=== PATIENT | female | born 1980 | race Caucasian/White ===

== ENCOUNTER → 2018-05-07 11:37 | Outpatient (CLI) | payer OTHER, SELFPAY | PROVIDERS: Family Provider Preventive Medicine Occupational Medicine; PCP Preventive Medicine Occupational Medicine; Visit Provider Surgery | DX: L02.214 Cutaneous abscess of groin (principal) | CPT/HCPCS: 87070; 87075; 87077; 87186; 87205 ==

== ENCOUNTER → 2018-11-24 10:37 | Outpatient (CLI) | payer OTHER, SELFPAY ==
[2018-10-20 11:40] VITALS: BMI 32.8
[2018-11-24 12:31] LABS: Microalbumin,Random Urine 80.8 mg/L (NO RANGE EST.); Microalbumin:Creatinine Ratio 115.4 mg/g CRE (<30 mg/g CRE)
[2018-11-24 12:35] LABS: Hemoglobin A1c 12.3 % (4.2-6.3)
[2018-11-24 12:51] LABS: ALB/GLOB Ratio 0.9 RATIO (0.9-2.4); AST(SGOT) 13 U/L (15-37); Alanine Aminotransfer ALT/SGPT 27 U/L (13-56); Albumin, Serum 3.5 g/dL (3.2-5.0); Alkaline Phosphatase 93 U/L (45-117); Anion Gap 10 (5-15); BUN 11 mg/dL (7-18); BUN/Creat Ratio 13.9 RATIO (10-20); Chloride 102 mmol/L (98-107); Creatinine, Serum 0.79 mg/dL (0.55-1.02); EST Glomerular Filtration Rate 87 mL/min (>60); Est Glom Filt Rate - Afr Amer 105 mL/min (>60); Glucose 358 mg/dL (74-106); Potassium 4.4 mmol/L (3.5-5.1); Protein, Total 7.5 g/dL (6.4-8.2); Sodium Level 135 mmol/L (136-145); T4 Free Direct 1.49 ng/dL (0.76-1.46); Thyroid Stim Hormone (TSH) 1.43 uIU/mL (0.358-3.74)
--- OUTSIDE RECORDS SUMMARY | 2019-01-26 13:36 | XMS RPT_ITS ---
:1980 Author Organization OHIP Support Name Relationship Address Phone RACHEL AVILA Unavailable [address] + [place] [address] [facility] Unavailable [address] + [place] [address] RACHEL AVILA Unavailable [address] + [place] [address] [facility] Unavailable [address] + [place] [address] RACHEL AVILA Unavailable [address] + [place] [address] [facility] Unavailable [address] + [place] [address] RACHEL AVILA Unavailable [address] + [place] [address] [facility] Unavailable [address] + [place] [address] RACHEL AVILA Unavailable [address] + [place] [address] [facility] Unavailable [address] + [place] [address] RACHEL AVILA Unavailable [address] + [place] [address] [facility] Unavailable [address] + [place] [address] RACHEL AVILA Unavailable [address] + [place] [address] [facility] Unavailable [address] + [place] [address] RACHEL AVILA Unavailable [address] + [place] [address] [facility] Unavailable [address] + [place] [address] AVILA, RACHEL Unavailable [address] + [place] [address] [facility] Unavailable [address] + [place] [address] AVILA, RACHEL Unavailable [address] + [place] [address] [facility] Unavailable [address] + [place] [address] AVILA, RACHEL Unavailable [address] + [place] [address] [facility] Unavailable [address] + [place] [address] MARGARITA, RACHEL Unavailable [address] + [place] [address] [facility] Unavailable [address] + [place] [address] Care Team Providers Name Role Phone Louise Thomas IRRIGATOR HEAD-C Attending Unavailable Louise Thomas IRRIGATOR HEAD-Katharina Referring Unavailable Walter Becerra Primary Care Unavailable Robotham, Afua Attending Unavailable Sofie Hemant Referring Unavailable Sofie, Hemant Primary Care Unavailable Louise ThomasC Attending Unavailable Sofie, Hemant Referring Unavailable Louise Thomas IRRIGATOR HEAD-C Attending Unavailable Sofie, Hemant Referring Unavailable Brown, Walter Attending Unavailable Sofie, Hemant Referring Unavailable Louise Thomas IRRIGATOR HEAD-C Attending Unavailable Sofie, Hemant Referring Unavailable Louise Thomas IRRIGATOR HEAD-C Attending Unavailable Sofie, Hemant Referring Unavailable Sofie, Hemant Primary Care Unavailable Robotham, Afua Attending Unavailable Robotham, Afua Referring Unavailable Sofie, Hemant Primary Care Unavailable Chen Carias Attending Unavailable Sofie, Hemant Referring Unavailable Sofie, Hemant Primary Care Unavailable Robotham, Afua Attending Unavailable Robotham, Afua Referring Unavailable Sofie, Hemant Primary Care Unavailable Ann Rivera PA-C Attending Unavailable Sofie Hemant Referring Unavailable Sofie, Hemant Primary Care Unavailable Ann Rivera PA-C Attending Unavailable Sofie, Hemant Referring Unavailable Sofie, Hemant Primary Care Unavailable PROBLEMS PROBLEMS DATE TYPE CONDITION / CODE ATTENDING STATUS SOURCE 10/20/2018 Unknown E11.9 - Type 2 Louise Thomas Active [facility] diabetes mellitus IRRIGATOR HEAD-C Community without Hospital complications / Repository E11.9(ICD-10) 10/20/2018 Unknown E11.65 - Type 2 Louise Thomas Active [facility] diabetes mellitus IRRIGATOR HEAD-C Community with hyperglycemia Hospital / E11.65(ICD-10) Repository 09/29/2018 Unknown M79.7 - Brown, Walter Active [facility] Fibromyalgia / Community M79.7(ICD-10) Hospital Repository 09/29/2018 Unknown E34.9 - Endocrine Brown, Walter Active [facility] disorder, Community unspecified / Hospital E34.9(ICD-10) Repository 05/15/2018 Unknown L02.91 - Cutaneous Robotham, Active [facility] abscess, Afua Community unspecified / Hospital L02.91(ICD-10) Repository 05/07/2018 Unknown L02.214 - Cutaneous Rob[place]am, Active [facility] abscess of groin / [facility] Community L02.214(ICD-10) Hospital Repository 05/07/2018 Unknown N76.4 - Abscess of [place], Active [facility] vulva / [facility] Community N76.4(ICD-10) Hospital Repository 12/10/2017 Unknown L05.01 - Pilonidal Rivera PA-C, Active [facility] cyst with abscess / [facility] Community L05.01(ICD-10) Hospital Repository PROCEDURES PROCEDURES No Procedure Records FoundRESULTS RESULTS MICROALB:CREAT Collected: 11/24/2018 Status: F Source: [facility] RATIO,RANDOM UR 10:42 [facility] REPOSITORY TYPE CODE TESTS RESULT OUT OF RANGE REFERENCE UNITS LAB L501.1200 NO RANGE EST. mg/dL Normal UR CREAT 70.00 LAB L502.0500 NO RANGE EST. mg/L Normal 80.8 MICROALBUMIN ,UR LAB L502.0600 <30 mg/g CRE mg/g CRE High 115.4 MALB:CREAT Performed By: #### L502.0250 #### [facility] [address] [place], [address] HEMOGLOBIN A1C Collected: 11/24/2018 Status: F Source: [facility] [facility] 10:42 [facility] REPOSITORY TYPE CODE TESTS RESULT OUT OF RANGE REFERENCE UNITS LAB L501.9985 4.2-6.3 % High HGB A1C 12.3 Performed By: #### L501.9985 #### [facility] [address] [place], [address] COMPREHENSIVE METABOLIC Collected: 11/24/2018 Status: F Source: [facility] 10:42 AM [facility] REPOSITORY TYPE CODE TESTS RESULT OUT OF RANGE REFERENCE UNITS LAB L501.0100 74-106 mg/dL High GLU 358 Result Comment: Glucose result greater than or equal to 200 mg/dL suggests DIABETES MELLITUS per A.D.A. criteria. Please note revised GLUCOSE reference range effective 2017. LAB L501.1000 7-18 mg/dL Normal BUN 11 LAB L501.1100 0.55-1.02 mg/dL Normal CREAT,SERUM 0.79 Result Comment: The validity of the calculated GFR AND GFRAA in patients over 70 years has not been determined. Clinical correlation is essential. LAB L501.1110 >60 mL/min Normal EST GFR 87 Result Comment: Non- GFR Calc LAB L501.1115 >60 mL/min Normal EST GFR - AA 105 Result Comment: GFR Calc LAB L501.1300 10-20 RATIO Normal BUN/CRE 13.9 LAB L501.1500 6.4-8.2 g/dL T Normal PROT 7.5 LAB L501.1800 3.2-5.0 g/dL Normal ALB 3.5 LAB L501.1950 2.2-4.2 g/dL Normal GLOB 4.0 LAB L501.2000 0.9-2.4 RATIO Normal A/G 0.9 LAB L501.2200 8.5-10.1 mg/dL CA Normal 9.0 LAB L501.4100 15-37 U/L Low AST 13 LAB L501.4305 45-117 U/L Normal ALK P 93 LAB L501.4405 13-56 U/L Normal ALT 27 LAB L501.4600 0.20-1.00 mg/dL T Normal BILI 0.40 LAB L501.5300 136-145 mmol/L Low NA 135 LAB L501.5600 3.5-5.1 mmol/L K Normal 4.4 LAB L501.5900 98-107 mmol/L CL Normal 102 LAB L501.6100 21.0-32.0 mmol/L Normal CO2 23.0 LAB L501.6200 5-15 Normal GAP 10 Performed By: #### L500.4050, L501.9520, L506.0400 #### [facility] [address] [place], [place], [address] THYROID STIM HORMONE Collected: 11/24/2018 Status: F Source: [facility] ([facility]) 10:42 AM [facility] REPOSITORY TYPE CODE TESTS RESULT OUT OF RANGE REFERENCE UNITS LAB L501.9520 0.358-3.74 uIU/mL Normal TSH 1.43 Performed By: #### L500.4050, L501.9520, L506.0400 #### [facility] [address] [place], [place], [address] T4 FREE DIRECT Collected: 11/24/2018 Status: F Source: [place] [facility] 10:42 AM [facility] REPOSITORY TYPE CODE TESTS RESULT OUT OF REFERENCE UNITS RANGE LAB L506.0400 0.76-1.46 ng/dL High T4 FREE 1.49 DIRECT Performed By: #### L500.4050, L501.9520, L506.0400 #### [facility] [address] [place], [place], [address] ENDOCRINOLOGY VISIT Observed: 10/21/2018 Status: F Source: [facility] REPORT 9:08 AM [facility] REPOSITORY [facility] [address] [place] [address]. [address] [place], [place] [address] OFFICE VISIT Date of Service: 10/20/18 MR#: [id number] Acct: [id number] Name: HALLIE AVILA Rep #: [id number] : 1980 Provider: Louise Thomas NP Age/Sex: 38/F Location: [facility] [place] Status: Signed HPI History of present illness Hallie Avila is a 38 year old femal who presents for follow up of diabetes type 2. Diagnosed at age 25. Accompanied by her mother. Currently on tresiba 60 units daily. Pt denies difficulty with injections or self monitoring of BG. Denies any signs of infection or irritation at site of injections. Reports taking insulin as directed Also takes actos 30 mg daily. 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 Also has history of panic attacks and severe anxiety. Takes her insulin when she gets to work so she is around people who are awake in case she has a low BG. . She believes her last A1c was in the 9 range. She is extremely fearful of low BG. Brings BG well documented. At time of visit: -Pt denies symptoms of hypertensive emergency (CP,SOB,YA, or blurred vision) and hypotension(dizziness or lightheadedness) -Pt denies symptoms of hypoglycemia ( sweaty, confusion, anxiety, tremor, hunger, palpitations) and hyperglycemia ( polydipsia, polyuria) -Pt denies potential medication adverse effect. Hypoglycemia Aware of hypoglycemia: When awake Able to self treat low BG: Yes Frequent low Blood sugar: No Has supply of glucagon: Yes Works 11-7 shift. Sleeps until around 12n each day but also takes a nap fro about 2 hours before going to work. Eats a meal at 4pm and a second meal at 2am. Has a snack around midnight. Denies excessive thirst, increased frequency of urination, chest pain or dyspnea. Follows a regular diet, Is compliant with medication and is tolerating without side effects. Diet 2 meals snacks No carb counting SMBG inconsistent Checks usually around 12n when checks Exam Const General: comfortable, well groomed Nutritional Appearance: well nourished Orientation: oriented x3 HENMT Head: normal to inspection, atraumatic Ears: hearing grossly normal bilaterally Nose: external nose normal Face and sinus: normal facial exam Mouth: oral mucosae normal, moist mucous membranes Teeth and gingiva: dentition normal Eyes General: appearance normal, both eyes and all related structures Eyelids: eyelids normal Conjunctivae: conjunctivae normal Sclera: sclerae normal Pupils: PERRL Resp Effort AND Inspection: normal respiratory effort, able to speak in complete sentences, symmetric chest movement Cardio Rate: regular rate Rhythm: regular rhythm GI Inspection: normal to inspection Palpation: soft Skin General: no rashes or lesions noted Extrem General: normal to inspection, normal capillary refill, no edema Psych Mood: congruent mood Affect: normal affect Speech and Movement: speech and movement normal Attitude: cooperative Thought Process: normal Thought Content: normal Judgment: judgment good Type: type 2, insulin-requiring Glucose control symptoms: Reports high fasting glucose and high post-meal glucose Weight and fatigue symptoms: Denies snoring Cardiopulmonary symptoms: Denies chest pain at rest, dyspnea on exertion, lightheadedness or myalgias GI symptoms: Reports diarrhea; denies constipation, nausea/dyspepsia or vomiting Other symptoms: Denies blurry vision or change in vision Pertinent visit history: Denies recent visit to ER, recent hospital admission or recent 911 calls Self monitoring: Yes Percentage of fasting blood glucose within goal: <25% of the time Dietary compliance: Diabetes: other Diabetes education in past year: Yes Glucose testing: demonstrates correct use of meter, understands testing schedule Sick day education - understands ketone testing: Yes Physical activity: regular Intake Vital Signs10/20/18 Body Mass Index (BMI) 32.8 10/20/18 Height 5 ft 5 in Intake Visit Reasons: Diabetes 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 Accompanied by: Family / Other Allergies clindamycin Allergy (Verified 10/20/18 11:41) Rash morphine Adverse Reaction (Verified 10/20/18 11:41) Upset Stomach Medications Lorazepam [Ativan] 0.5 mg PO DAILY PRN PRN 01/13/17 [History Confirmed 10/20/18] MedroxyPROGESTERone [Depo-Provera] 150 mg IM .[id number] 01/13/17 [History Confirmed 10/20/18] insulin degludec (U-100) 100 unit/mL (3 mL) subcutaneous pen See Rx Instructions SC QHS 12/10/17 [History Confirmed 10/20/18] rosuvastatin 40 mg tablet 40 mg PO QDAY 05/15/18 [History Confirmed 10/20/18] levothyroxine 75 mcg tablet See Rx Instructions PO QHS 07/21/18 [History Confirmed 10/20/18] glipizide 5 mg tablet 5 mg PO DAILY #30 tab 07/29/18 [Rx Confirmed 10/20/18] duloxetine 30 mg capsule,delayed release 30 mg PO DAILY #30 cap 09/29/18 [Rx Confirmed 10/20/18] lisinopril 30 mg tablet 30 mg PO DAILY 09/29/18 [History Confirmed 10/20/18] pantoprazole 40 mg tablet,delayed release 40 mg PO DAILY 09/29/18 [History Confirmed 10/20/18] pioglitazone 30 mg tablet 30 mg PO QHS #90 tab 10/20/18 [Rx Confirmed 10/20/18] Nurse's Note: blood sugars : low : 231 high : 400 with one BG higher after forgetting medications [facility] History Hypothyroidism (Acute) HTN (hypertension) (Chronic) Tobacco use (Chronic) HLD (hyperlipidemia) (Chronic) Obesity (BMI 30.0-34.9) (Chronic) Diabetes mellitus, type II (Chronic) Anxiety and depression (Acute) GERD (gastroesophageal reflux disease) (Acute) HTN (hypertension), benign (Acute) Labial cyst (Acute) Seasonal allergies (Acute) Surgical History Abdominal wall abscess (Acute) History of bilateral carpal tunnel release (Acute) Family History Mother Diabetes Hypertension CAD (coronary artery disease) Thyroid disorder High cholesterol Father Diabetes Hypertension Grandmother Diabetes Hypertension Social History Smoking Status: Current every day smoker alcohol intake: never substance use type: does not use what type of physical activity do you participate in: none Female Reproductive History Menstrual control method: progesterone injection ROS Const Constitutional: Positive for fatigue and night sweats; no anorexia, body ache, chills, fever(s), frequent falls, decreased energy, malaise, weakness, weight change, sleep problems, abnormal sleep pattern, change in appetite, other, headache(s), snoring or excessive sweating Eyes Eyes: Positive for other (eye exam 10/20); no blurry vision, change in vision, double vision, discharge, dry eyes, bulging eyes, floaters, visual disturbances, eye pain, light sensitivity, spots in vision or tunnel vision ENT ENT: No abnormal hearing, ear pain, ear discharge, ear pressure, hearing loss, tinnitus, dizziness/vertigo, balance problems, nosebleed/epistaxis, nasal congestion, nasal obstruction, nose pain, sinus pressure, sinus pain, nasal discharge, post nasal drip, headache(s), facial pain, dental pain, dry mouth, bad breath, hoarseness, lip swelling, mouth lesions, mouth pain, sore throat, tongue swelling, throat swelling, other, difficulty swallowing or neck pain Resp Respiratory: Positive for cough; no change in phlegm color, chest congestion, excessive phlegm production, hemoptysis, pain on inspiration, shortness of breath, pain with cough, snoring, stridor, wheezing or other Cardio Cardiology: No chest pain at rest, chest pain with exertion, leg pain with exertion, excessive sweating, shortness of breath, dyspnea on exertion, generalized swelling, irregular heart rhythm, lightheadedness, orthopnea, radiating jaw, neck or arm pain, fast heart rate, slow heart rate, palpitations or other Gastro GI: Positive for belching, bloating, diarrhea and heartburn; no abdominal pain, change in bowel habits, change in stool character, coffee ground emesis, constipation, cramping, difficulty swallowing, feeling full early, excessive flatus, incontinent of stools, Vomiting blood/hematemesis, blood in stool, loose stools, Black,tarry stools, nausea/dyspepsia, pain with swallowing, vomiting or other Genitourinary-Female: No difficulty urinating, burning urination, painful urination, urinary incontinence, urinary frequency, urinary urgency, urinary hesitancy, urinary retention, blood in urine, Frequent nighttime urination/ nocturia, post void dribbling, suprapubic fullness, side pain, sexual problems, genital lesions, genital itching, hot flashes, abnormal periods, abnormal vaginal bleeding, absent period, painful periods, light periods, heavy periods, difficulty getting , painful intercourse, pelvic pain, vaginal dryness, vaginal odor, Vaginal Itching or other Musc Musculoskeletal: No abnormal walking, joint pain, back pain, deformity, joint swelling, limited range of motion, loss of height, muscle cramps, muscle weakness, decreased muscle mass, body aches, neck pain, numbness, radiating pain into limb, stiffness, tingling or other Skin Skin: No acne, hair loss, change in hair, nail changes, boil, change in skin color, dry skin, redness, excessive hair growth, yellowing of the skin, lesions, itching, rash, skin pain, skin ulcer, sores, skin swelling, wounds or other Breast Breast: No other Neuro Neurology: No frequent falls, weakness, visual disturbances, abnormal hearing, headache(s), abnormal walking, numbness or tingling Psych Psychiatric: No abnormal sleep pattern, No change in appetite Endo Endocrine: Positive for fatigue; no other or excessive sweating Aller/Imm Allergy/Immunologic: No lip swelling, tongue swelling, throat swelling, wheezing or itchy eyes Assessment AND Plan 1. Type 2 diabetes mellitus with complication, with long-term current use of insulin E11.8 Plan Has checked BG 3 times daily for this review. BG noted to be in best control in am afer work shift. She then sleeps until 2pm. She then is drinking regular pop. Occ eating chips. Has a meal at 4pm and BG readings noted to be significantly elevated. At 12m BG have improved by around 100 BG points. Reports taking medication as directed. BG now 200-400 range on average. Patient instructed to avoid regular pop and also to check BG when she awakens instead of after she is up for awhile to determine what BG is. Patient Instructions Avoid regular pop. Check BG in pairs at meals. Lab work ordered. Control portions Food selections should be healthy Choose more low carb vegetables Avoid snacks and desserts. Drink water Exercise daily Eat more fresh foods, not canned or processed Eat more slowly Plan Detail Other Orders Orders: Other Medications Refilled: Additional Comments 1. Please schedule follow up in 2 months. 2. Lab work one week before appointment. 3. Discussed importance of regular exercise and recommend starting or continuing a regular exercise program for good health. 4. The patient was encouraged to lose weight for good health 5. The importance of monitoring blood sugar regularly was reviewed. 6. The importance of monitoring the HBA1c level regularly was reviewed. 7. The importance of prper foot care and regularly checking feet to prevent sores and loss of limbs was reviewed. 8. The importance of keeping BP at or below 130/80 to prevent stroke, heart attacks, kidney failure, blindness was reviewed. Spent approximately 30 minutes with patient with over 50% of time spent in discussion and counseling regarding medication adjustment, symptoms and treatment of hypoglycemia, diet adherence, and checking BG before driving. 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 [address] [place] [address] OFFICE VISIT Date of Service: 09/29/18 MR#: [id number] Acct: [id number] Name: HALLIE AVILA Rep #: [id number] : 1980 Provider: Walter Becerra DO Age/Sex: 38/F Location: [facility] Status: Signed Intake Vital Signs09/29/18 Body Mass Index (BMI) 32.8 09/29/18 Height 5 ft 5 in Intake Visit Reasons: EST CARE Chief Complaint: establish care Accompanied by: Mother Is patient in pain?: Yes (knee pain) Allergies clindamycin Allergy (Verified 08/26/18 14:00) Rash morphine Adverse Reaction (Verified 08/26/18 14:00) Upset Stomach Medications Lorazepam [Ativan] 0.5 mg PO DAILY PRN PRN 01/13/17 [History Confirmed 08/26/18] MedroxyPROGESTERone [Depo-Provera] 150 mg IM .[id number] 01/13/17 [History Confirmed 08/26/18] Pioglitazone [Actos] 30 mg PO QHS 01/13/17 [History Confirmed 08/26/18] insulin degludec (U-100) 100 unit/mL (3 mL) subcutaneous pen See Rx Instructions SC QHS 12/10/17 [History Confirmed 08/26/18] rosuvastatin 40 mg tablet 40 mg PO QDAY 05/15/18 [History Confirmed 08/26/18] levothyroxine 75 mcg tablet See Rx Instructions PO QHS 07/21/18 [History Confirmed 08/26/18] glipizide 5 mg tablet 5 mg PO DAILY #30 tab 07/29/18 [Rx Confirmed 08/26/18] duloxetine 30 mg capsule,delayed release 30 mg PO DAILY #30 cap 09/29/18 [Rx Confirmed 09/29/18] lisinopril 30 mg tablet 30 mg PO DAILY 09/29/18 [History Confirmed 09/29/18] pantoprazole 40 mg tablet,delayed release 40 mg PO DAILY 09/29/18 [History Confirmed 09/29/18] Is last menstrual period known: Yes Post menopausal: No Patient : No PFSH Medical History Hypothyroidism (Acute) HTN (hypertension) (Chronic) Tobacco use (Chronic) HLD (hyperlipidemia) (Chronic) Obesity (BMI 30.0-34.9) (Chronic) Diabetes mellitus, type II (Chronic) Anxiety and depression (Acute) GERD (gastroesophageal reflux disease) (Acute) HTN (hypertension), benign (Acute) Labial cyst (Acute) Seasonal allergies (Acute) Surgical History Abdominal wall abscess (Acute) History of bilateral carpal tunnel release (Acute) Family History Mother Diabetes Hypertension CAD (coronary artery disease) Thyroid disorder High cholesterol Father Diabetes Hypertension Grandmother Diabetes Hypertension Social History Smoking Status: Current every day smoker alcohol intake: never substance use type: does not use what type of physical activity do you participate in: none Female Reproductive History Menstrual control method: progesterone injection HPI HPI Chief Complaint: establish care Details: HALLIE AVILA, is a 38 F who presents to the office today for establishing care in the new office. She has 4 major problems the first is she is a diabetic is poorly controlled the second is she has what I believe is fibromyalgia generalized achiness and pain in the absence of any restriction of motion or objective physical findings. Third is recurring MRSA infections. In fourth is menstrual difficulties using Depo- Provera for controlling periods which I feel may be exacerbating the acne problems. 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.); no weight change, body ache, chills, fever(s), change in appetite, snoring, weakness, frequent falls, headache(s) or excessive sweating Eyes Eyes: No change in vision, eye pain, light sensitivity or blurry vision ENT ENT: Positive for nasal discharge; no headache(s), abnormal hearing, ear pain, tinnitus, nasal congestion or sore throat Resp Respiratory: Positive for cough; no snoring, shortness of breath or wheezing Cardio Cardiology: No excessive sweating, chest pain at rest, chest pain with exertion, shortness of breath, dyspnea on exertion, palpitations, orthopnea or lightheadedness Gastro GI: Positive for heartburn; no abdominal pain, change in bowel habits, constipation, diarrhea, vomiting, nausea/dyspepsia or cramping Genitourinary-Female: No burning urination, painful urination, urinary incontinence, urinary frequency, abnormal vaginal bleeding, pelvic pain or other Musc Musculoskeletal: Positive for joint pain (knees), numbness, tingling (legs and toes) and muscle weakness; no abnormal walking, back pain or limited range of motion Skin Skin: No redness, dry skin, itching, lesions, wounds or rash Neuro Neurology: Positive for numbness and tingling (legs and toes); no weakness, frequent falls, headache(s), abnormal hearing, abnormal walking, abnormal speech, dizziness or memory loss Psych Psychiatric: No change in appetite, No memory loss, No anxiety, Positive for depression, No Thoughts of harming yourself/Others, Positive for other (lack of motivation ) Endo Endocrine: Positive for fatigue; no excessive sweating, cold intolerance, increased thirst/drinking, heat intolerance, flushing or increased hunger Aller/Imm Allergy/Immunologic: No wheezing, itchy eyes, hives or seasonal allergy symptoms Luis/Lymp Hematologic/Lymphatic: No easy bleeding, easy bruising or enlarged lymph nodes Exam Const General: cooperative Nutritional Appearance: overweight Orientation: oriented x3 Limitations: other limitations (Intellectually she is low functioning .) [facility] Head: normal to inspection Ears: hearing grossly normal bilaterally Nose: external nose normal Face and sinus: normal facial exam Mouth: oral mucosae normal Teeth and gingiva: dentition normal Throat: posterior oropharynx normal Eyes General: appearance normal, both eyes and all related structures Neck Neck: normal visual inspection Neck mass: No Thyroid: thyroid normal Lymphatic: no lymphadenopathy noted Resp Effort AND Inspection: normal respiratory effort Auscultation: Bilateral: Clear to Auscultation Cardio Rate: regular rate Rhythm: regular rhythm GI Auscultation: normal bowel sounds Musc Musculoskeletal: Yes muscle weakness Skin General: no rashes or lesions noted Lesions: no lesions Rashes: rashes noted (acne lesions noted) Extrem General: normal to inspection Psych Appearance: grossly normal Affect: normal affect Speech and Movement: speech and movement normal Attitude: cooperative Assessment AND Plan Problems 1. Essential hypertension I10 2. Hypothyroidism E03.9 3. Tobacco use Z72.0 Cigarette tobacco, 1 ppd. 4. Hyperlipidemia, unspecified hyperlipidemia type E78.5 5. Obesity (BMI 30.0-34.9) E66.9 6. Type 2 diabetes mellitus with complication, with long-term current use of insulin E11.8 Dx : age 25 Last exacerbation : DKA : never Hypoglycemic episode : never ER visit : 2008 - was to er x 3 for elevated bg after steroids 7. Fibromyalgia M79.7 Plan This patient was seen by me for the first time with a multiplicity of problems. She has diabetes and it is being handled through endocrinology. She has recurrent MRSA infections and has seen surgery for surgical excisions of the worst of these. She used to see a family doctor who put her on Depo-Provera to control her menstrual cycles saying that it would help her acne. But I believe the Depo-Provera probably makes the acne worse as progesterones normally do not help acne so I referred her to an OB GEN doctor to reassess in a otto female what she should take not only for contraception if she needs it but also. Control. She has had no hormonal workup in the past. And she mainly complains of severe joint pain in the back and the knees in the arms but it is much more that of fibromyalgia as objective physical examination is completely within normal limits. I changed her very low-dose paroxetine to a normal dose of duloxetine in hopes that this would help her fibromyalgia I made the referral and will follow her up in several months. Orders Referrals: Medications New: Discontinued: paroxetine Discontinued Reason: Discontinued by PCP/other phy10 mg PO QHS DEPRESSION sicians Plan Detail Follow Up 3 Months Coding Level of Care Code Off vis,new,level 3 Diagnoses Essential hypertension I10 Hypertension type: essential hypertension Hypothyroidism E03.9 Tobacco use Z72.0 Hyperlipidemia, unspecified hyperlipidemia type E78.5 Hyperlipidemia type: unspecified Obesity (BMI 30.0-34.9) E66.9 Type 2 diabetes mellitus with complication, with long-term current use of insulin E11.8 Diabetes mellitus complication status: with unspecified complications 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 [place] [id number] OFFICE VISIT Date of Service: 08/04/18 MR#: [id number] Acct: [id number] Patient: HALLIE AVILA Rep #: [id number] : 1980 Provider: Louise Thomas NP Age/Sex: 38/F [place] [facility] [place]: Signed Intake Vital Signs08/04/18 Height 5 ft 5 in Intake Visit Reasons: feliberto sensor placement Allergies clindamycin Allergy (Verified 08/26/18 14:00) Rash morphine Adverse Reaction (Verified 08/26/18 14:00) Upset Stomach Medications Lorazepam [Ativan] 0.5 mg PO DAILY PRN PRN 01/13/17 [History Confirmed 08/26/18] MedroxyPROGESTERone [Depo-Provera] 150 mg IM .[id number] 01/13/17 [History Confirmed 08/26/18] Pantoprazole Sodium [Protonix] 20 mg PO QHS 01/13/17 [History Confirmed 08/26/18] Paroxetine [Paxil] 10 mg PO QHS 01/13/17 [History Confirmed 08/26/18] Pioglitazone [Actos] 30 mg PO QHS 01/13/17 [History Confirmed 08/26/18] Lisinopril [Zestril] 30 mg PO DAILY 08/16/17 [History Confirmed 08/26/18] insulin degludec (U-100) 100 unit/mL (3 mL) subcutaneous pen See Rx Instructions SC QHS 12/10/17 [History Confirmed 08/26/18] rosuvastatin 40 mg tablet 40 mg PO QDAY 05/15/18 [History Confirmed 08/26/18] levothyroxine 75 mcg tablet See Rx Instructions PO QHS 07/21/18 [History Confirmed 08/26/18] glipizide 5 mg tablet 5 mg PO DAILY #30 tab 07/29/18 [Rx Confirmed 08/26/18] Assessment AND Plan Orders Orders: Nursing Note Feliberto pro senser placed to back of pts R arm. pt tolerated well with no c/o. will wear senser for 14 days and return to clinic for results 09/19/181950 <Electronically signed by Louise MOORE> Date Louise MOORE Cosigner Signature: Date (if applicable) CC: ENDOCRINOLOGY VISIT Observed: 08/30/2018 Status: F Source: LUIS ENRIQUE REPORT 7:00 PM [facility] [address] [place] [address] [address] [place] [address] OFFICE VISIT Date of Service: 08/26/18 MR#: [id number] Acct: [id number] Name: HALLIE AVILA Rep #: [id number] : 1980 Provider: Louise Thomas NP Age/Sex: 38/F Location: [facility] [place] Status: Signed HPI History of present illness History of present illness Hallie Avila is a 38 year old femal who presents for follow up of diabetes type 2. Diagnosed at age 25. Accompanied by her mother. Currently on tresiba 60 units daily. Pt denies difficulty with injections or self monitoring of BG. Denies any signs of infection or irritation at site of injections. Reports taking insulin as directed Also takes actos 30 mg daily. 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 Also has history of panic attacks and severe anxiety. Takes her insulin when she gets to work so she is around people who are awake in case she has a low BG. . She believes her last A1c was in the 9 range. She is extremely fearful of low BG. Is here today for CGM interpretation At time of visit: -Pt denies symptoms of hypertensive emergency (CP,SOB,AY, or blurred vision) and hypotension(dizziness or lightheadedness) -Pt denies symptoms of hypoglycemia ( sweaty, confusion, anxiety, tremor, hunger, palpitations) and hyperglycemia ( polydipsia, polyuria) -Pt denies potential medication adverse effect. Hypoglycemia Aware of hypoglycemia: When awake Able to self treat low BG: Yes Frequent low Blood sugar: No Has supply of glucagon: Yes Works 11-7 shift. Sleeps until around 12n each day but also takes a nap fro about 2 hours before going to work. Eats a meal at 4pm and a second meal at 2am. Has a snack around midnight. Denies excessive thirst, increased frequency of urination, chest pain or dyspnea. Follows a regular diet, Is compliant with medication and is tolerating without side effects. Diet 2 meals snacks No carb counting SMBG inconsistent Checks usually around 12n when checks Exam Const General: comfortable, well groomed Nutritional Appearance: well nourished Orientation: oriented x3 HENMT Head: normal to inspection, atraumatic Ears: hearing grossly normal bilaterally Nose: external nose normal Face and sinus: normal facial exam Mouth: oral mucosae normal, moist mucous membranes Teeth and gingiva: dentition normal Eyes General: appearance normal, both eyes and all related structures Eyelids: eyelids normal Conjunctivae: conjunctivae normal Sclera: sclerae normal Pupils: PERRL Resp Effort AND Inspection: normal respiratory effort, able to speak in complete sentences, symmetric chest movement Cardio Rate: regular rate Rhythm: regular rhythm GI Inspection: normal to inspection Palpation: soft Skin General: no rashes or lesions noted Extrem General: normal to inspection, normal capillary refill, no edema Psych Mood: congruent mood Affect: normal affect Speech and Movement: speech and movement normal Attitude: cooperative Thought Process: normal Thought Content: normal Judgment: judgment good Type: type 2, insulin-requiring Glucose control symptoms: Reports high post-meal glucose Weight and fatigue symptoms: Denies snoring Cardiopulmonary symptoms: Denies chest pain at rest, dyspnea on exertion, lightheadedness or myalgias GI symptoms: Reports nausea/dyspepsia; denies constipation, diarrhea or vomiting Other symptoms: Denies blurry vision or change in vision Pertinent visit history: Denies recent visit to ER, recent DKA or recent hospital admission Intake Vital Signs08/26/18 Height 5 ft 5 in 08/26/18 Weight: 197 lb 8 oz 08/26/18 Body Mass Index (BMI) 32.8 08/26/18 Blood Pressure 121/84 H 08/26/18 Blood Pressure Location Lt popliteal 08/26/18 Blood Pressure Position Sitting Intake Visit Reasons: CGM reading Dub Room Engineer Required: No Accompanied by: Family / Other Allergies clindamycin Allergy (Verified 08/26/18 14:00) Rash morphine Adverse Reaction (Verified 08/26/18 14:00) Upset Stomach Medications Lorazepam [Ativan] 0.5 mg PO DAILY PRN PRN 01/13/17 [History Confirmed 08/26/18] MedroxyPROGESTERone [Depo-Provera] 150 mg IM .[id number] 01/13/17 [History Confirmed 08/26/18] Pantoprazole Sodium [Protonix] 20 mg PO QHS 01/13/17 [History Confirmed 08/26/18] Paroxetine [Paxil] 10 mg PO QHS 01/13/17 [History Confirmed 08/26/18] Pioglitazone [Actos] 30 mg PO QHS 01/13/17 [History Confirmed 08/26/18] Lisinopril [Zestril] 30 mg PO DAILY 08/16/17 [History Confirmed 08/26/18] insulin degludec (U-100) 100 unit/mL (3 mL) subcutaneous pen See Rx Instructions SC QHS 12/10/17 [History Confirmed 08/26/18] rosuvastatin 40 mg tablet 40 mg PO QDAY 05/15/18 [History Confirmed 08/26/18] levothyroxine 75 mcg tablet See Rx Instructions PO QHS 07/21/18 [History Confirmed 08/26/18] glipizide 5 mg tablet 5 mg PO DAILY #30 tab 07/29/18 [Rx Confirmed 08/26/18] Nurse's Note: blood sugars : low : 200+ high : 500+ PFSH Medical History Hypothyroidism (Acute) HTN (hypertension) (Chronic) Tobacco use (Chronic) HLD (hyperlipidemia) (Chronic) Obesity (BMI 30.0-34.9) (Chronic) Diabetes mellitus, type II (Chronic) Anxiety and depression (Acute) GERD (gastroesophageal reflux disease) (Acute) HTN (hypertension), benign (Acute) Labial cyst (Acute) Seasonal allergies (Acute) Surgical History Abdominal wall abscess (Acute) History of bilateral carpal tunnel release (Acute) Family History Mother Diabetes Hypertension CAD (coronary artery disease) Thyroid disorder High cholesterol Father Diabetes Hypertension Grandmother Diabetes Hypertension Social History Smoking Status: Current every day smoker alcohol intake: current alcohol intake frequency: holidays/special occasions only ROS Const Constitutional: Positive for fatigue and night sweats; no anorexia, body ache, chills, fever(s), frequent falls, decreased energy, malaise, weakness, weight change, sleep problems, abnormal sleep pattern, change in appetite, other, headache(s), snoring or excessive sweating Eyes Eyes: No blurry vision, change in vision, double vision, discharge, dry eyes, bulging eyes, floaters, visual disturbances, eye pain, light sensitivity, spots in vision, tunnel vision or other ENT ENT: No abnormal hearing, ear pain, ear discharge, ear pressure, hearing loss, tinnitus, dizziness/vertigo, balance problems, nosebleed/epistaxis, nasal congestion, nasal obstruction, nose pain, sinus pressure, sinus pain, nasal discharge, post nasal drip, headache(s), facial pain, dental pain, dry mouth, bad breath, hoarseness, lip swelling, mouth lesions, mouth pain, sore throat, tongue swelling, throat swelling, other, difficulty swallowing or neck pain Resp Respiratory: Positive for cough; no change in phlegm color, chest congestion, excessive phlegm production, hemoptysis, pain on inspiration, shortness of breath, pain with cough, snoring, stridor, wheezing or other Cardio Cardiology: No chest pain at rest, chest pain with exertion, leg pain with exertion, excessive sweating, shortness of breath, dyspnea on exertion, generalized swelling, irregular heart rhythm, lightheadedness, orthopnea, radiating jaw, neck or arm pain, fast heart rate, slow heart rate, palpitations or other Gastro GI: Positive for heartburn and nausea/dyspepsia; no abdominal pain, belching, bloating, change in bowel habits, change in stool character, coffee ground emesis, constipation, cramping, diarrhea, difficulty swallowing, feeling full early, excessive flatus, incontinent of stools, Vomiting blood/hematemesis, blood in stool, loose stools, Black,tarry stools, pain with swallowing, vomiting or other Genitourinary-Female: No difficulty urinating, burning urination, painful urination, urinary incontinence, urinary frequency, urinary urgency, urinary hesitancy, urinary retention, blood in urine, Frequent nighttime urination/ nocturia, post void dribbling, suprapubic fullness, side pain, sexual problems, genital lesions, genital itching, hot flashes, abnormal periods, abnormal vaginal bleeding, absent period, painful periods, light periods, heavy periods, difficulty getting , painful intercourse, pelvic pain, vaginal dryness, vaginal odor, Vaginal Itching or other Musc Musculoskeletal: Positive for back pain; no abnormal walking, joint pain, deformity, joint swelling, limited range of motion, loss of height, muscle cramps, muscle weakness, decreased muscle mass, body aches, neck pain, numbness, radiating pain into limb, stiffness, tingling or other Skin Skin: No acne, hair loss, change in hair, nail changes, boil, change in skin color, dry skin, redness, excessive hair growth, yellowing of the skin, lesions, itching, rash, skin pain, skin ulcer, sores, skin swelling, wounds or other Breast Breast: No other Neuro Neurology: No frequent falls, weakness, visual disturbances, abnormal hearing, headache(s), abnormal walking, numbness or tingling Psych Psychiatric: No abnormal sleep pattern, No change in appetite Endo Endocrine: Positive for fatigue; no other or excessive sweating Aller/Imm Allergy/Immunologic: No lip swelling, tongue swelling, throat swelling, wheezing or itchy eyes Assessment AND Plan Problems 1. Type 2 diabetes mellitus with complication, with long-term current use of insulin E11.8 Plan CGM worn for 14 dyas. Pattern notes BG at over 300 at 12m and remains during her work. At 6am her Bg begins to drop and continues to do so while she sleeps. Notes she takes her insulin at 12m. When she awakens she has her first meal and takes her glipizide. Bg remains fairly stable until she has her second meal in the night right before going to work. Will add a second dose of glipizide to patient regimen. As she is fearful of low Bg will start at 2.5mg but will ask patient to monito Bg carefully and then call me with Bg readings after the first week. Reviewed diet and carb counting with patient again at this visit to reinforce previous teaching. Patient seems to be motivated and is able to grasp all concepts. Anwered all questions of patient as well as her mothers. Bp sl improved today Orders Orders: Plan Detail Additional Comments 1. Please schedule follow up in 3 months. 2. Lab work one week before appointment. 3. Discussed importance of regular exercise and recommend starting or continuing a regular exercise program for good health. 4. The patient was encouraged to lose weight for good health 5. The importance of monitoring blood sugar regularly was reviewed. 6. The importance of monitoring the HBA1c level regularly was reviewed. 7. The importance of prper foot care and regularly checking feet to prevent sores and loss of limbs was reviewed. 8. The importance of keeping BP at or below 130/80 to prevent stroke, heart attacks, kidney failure, blindness was reviewed. Spent approximately 30 minutes with patient with over 50% of time spent in discussion and counseling regarding medication adjustment, symptoms and treatment of hypoglycemia, diet adherence, and checking BG before driving. Coding Level of Care Code Off vis,est,level 4 Diagnoses Type 2 diabetes mellitus with complication, with long-term current use of insulin E11.8 Diabetes mellitus complication status: with unspecified complications Diabetes mellitus detention insulin use: with detention use 08/30/18 1900 <Electronically signed by Louise MOORE> Date Louise MOORE Cosigner Signature: Date (if applicable) CC: ENDOCRINOLOGY VISIT Observed: 07/21/2018 Status: F Source: CECIL REPORT 9:00 PM [facility] [place] [facility] [address] [place] [address] OFFICE VISIT Date of Service: 07/21/18 MR#: [id number] Acct: [id number] Name: HALLIE AVILA Rep #: [id number] : 1980 Provider: Louise Thomas NP Age/Sex: 37/F Location: [facility] [place] Status: Signed HPI History of present illness Hallie Avila is a 37 year old femal who presents for consult of diabetes type 2. Diagnosed at age 25. Accompanied by her mother. Currently on tresiba 60 units daily. Pt denies difficulty with injections or self monitoring of BG. Denies any signs of infection or irritation at site of injections. Reports taking insulin as directed Also takes actos 30 mg daily. 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 Takes her insulin when she gets to work so she is around people who are awake in case she has a low BG. Brings her meter with her but only has 7-8 BG over the last several months. BG range from 195-500. Most BG in the low 200 range. She believes her last A1c was in the 9 range. She is extremely fearful of low BG. At time of visit: -Pt denies symptoms of hypertensive emergency (CP,SOB,YA, or blurred vision) and hypotension(dizziness or lightheadedness) -Pt denies symptoms of hypoglycemia ( sweaty, confusion, anxiety, tremor, hunger, palpitations) and hyperglycemia ( polydipsia, polyuria) -Pt denies potential medication adverse effect. Hypoglycemia Aware of hypoglycemia: When awake Able to self treat low BG: Yes Frequent low Blood sugar: No Has supply of glucagon: Yes Works 11-7 shift. Sleeps until around 12n each day but also takes a nap fro about 2 hours before going to work. Eats a meal at 4pm and a second meal at 2am. Has a snack around midnight. Denies excessive thirst, increased frequency of urination, chest pain or dyspnea. Follows a regular diet, Is compliant with medication and is tolerating without side effects. Diet 2 meals snacks No carb counting SMBG inconsistent Checks usually around 12n when checks Average BG 220 Type: type 2, insulin-requiring Glucose control symptoms: Reports high fasting glucose and high post-meal glucose Weight and fatigue symptoms: Denies snoring Cardiopulmonary symptoms: Reports lightheadedness; denies chest pain at rest, dyspnea on exertion or myalgias GI symptoms: Reports constipation, diarrhea and nausea/dyspepsia; denies vomiting Other symptoms: Denies blurry vision or change in vision Pertinent visit history: Denies recent visit to ER or recent DKA Dietary compliance: Diabetes: other Diabetes education in past year: No Physical activity: regular Exam Const General: comfortable, well groomed Nutritional Appearance: well nourished Orientation: oriented x3 HENMT Head: normal to inspection, atraumatic Ears: hearing grossly normal bilaterally Nose: external nose normal Face and sinus: normal facial exam Mouth: oral mucosae normal, moist mucous membranes Teeth and gingiva: dentition normal Eyes General: appearance normal, both eyes and all related structures Eyelids: eyelids normal Conjunctivae: conjunctivae normal Sclera: sclerae normal Pupils: PERRL Resp Effort AND Inspection: normal respiratory effort, able to speak in complete sentences, symmetric chest movement Cardio Rate: regular rate Rhythm: regular rhythm GI Inspection: normal to inspection Palpation: soft Skin General: no rashes or lesions noted Extrem General: normal to inspection, normal capillary refill, no edema Psych Mood: congruent mood Affect: normal affect Speech and Movement: speech and movement normal Attitude: cooperative Thought Process: normal Thought Content: normal Judgment: judgment good Intake Vital Signs07/21/18 Height 5 ft 5 in 07/21/18 Weight: 195 lb 8 oz 07/21/18 Body Mass Index (BMI) 32.5 07/21/18 Blood Pressure 125/86 07/21/18 Blood Pressure Location Lt popliteal 07/21/18 Blood Pressure Position Sitting Intake Visit Reasons: Diabetes Mellitus Type 2 Dub Room Engineer Required: No Accompanied by: Family / Other Is patient in pain?: No Allergies clindamycin Allergy (Verified 05/15/18 13:00) Rash morphine Adverse Reaction (Verified 05/15/18 13:00) Upset Stomach Medications Lorazepam [Ativan] 0.5 mg PO DAILY PRN PRN 01/13/17 [History Confirmed 07/21/18] MedroxyPROGESTERone [Depo-Provera] 150 mg IM .[id number] 01/13/17 [History Confirmed 07/21/18] Pantoprazole Sodium [Protonix] 20 mg PO QHS 01/13/17 [History Confirmed 07/21/18] Paroxetine [Paxil] 10 mg PO QHS 01/13/17 [History Confirmed 07/21/18] Pioglitazone [Actos] 30 mg PO QHS 01/13/17 [History Confirmed 07/21/18] Lisinopril [Zestril] 30 mg PO DAILY 08/16/17 [History Confirmed 07/21/18] insulin degludec (U-100) 100 unit/mL (3 mL) subcutaneous pen See Label Instructions SC QHS 12/10/17 [History Confirmed 07/21/18] rosuvastatin 40 mg tablet 40 mg PO QDAY 05/15/18 [History Confirmed 07/21/18] levothyroxine 75 mcg tablet See Label Instructions PO QHS 07/21/18 [History Confirmed 07/21/18] Is last menstrual period known: No Post menopausal: No Patient : No Nurse's Note: blood sugars : low : 200 high : 500+ PFSH Medical History Hypothyroidism (Acute) HTN (hypertension) (Chronic) Tobacco use (Chronic) HLD (hyperlipidemia) (Chronic) Obesity (BMI 30.0-34.9) (Chronic) Diabetes mellitus, type II (Chronic) Anxiety and depression (Acute) GERD (gastroesophageal reflux disease) (Acute) HTN (hypertension), benign (Acute) Labial cyst (Acute) Seasonal allergies (Acute) Surgical History Abdominal wall abscess (Acute) History of bilateral carpal tunnel release (Acute) Family History Mother Diabetes Hypertension CAD (coronary artery disease) Thyroid disorder High cholesterol Father Diabetes Hypertension Grandmother Diabetes Hypertension Social History Smoking Status: Current every day smoker alcohol intake: current alcohol intake frequency: holidays/special occasions only ROS Const Constitutional: Positive for fatigue and night sweats; no anorexia, body ache, chills, fever(s), frequent falls, decreased energy, malaise, weakness, weight change, sleep problems, abnormal sleep pattern, change in appetite, other, headache(s), snoring or excessive sweating Eyes Eyes: Positive for other (eye exam 10/19); no blurry vision, change in vision, double vision, discharge, dry eyes, bulging eyes, floaters, visual disturbances, eye pain, light sensitivity, spots in vision or tunnel vision ENT ENT: Positive for post nasal drip; no abnormal hearing, ear pain, ear discharge, ear pressure, hearing loss, tinnitus, dizziness/vertigo, balance problems, nosebleed/epistaxis, nasal congestion, nasal obstruction, nose pain, sinus pressure, sinus pain, nasal discharge, headache(s), facial pain, dental pain, dry mouth, bad breath, hoarseness, lip swelling, mouth lesions, mouth pain, sore throat, tongue swelling, throat swelling, other, difficulty swallowing or neck pain Resp Respiratory: Positive for cough, shortness of breath and wheezing; no change in phlegm color, chest congestion, excessive phlegm production, hemoptysis, pain on inspiration, pain with cough, snoring, stridor or other Cardio Cardiology: Positive for lightheadedness; no chest pain at rest, chest pain with exertion, leg pain with exertion, excessive sweating, shortness of breath, dyspnea on exertion, generalized swelling, irregular heart rhythm, orthopnea, radiating jaw, neck or arm pain, fast heart rate, slow heart rate, palpitations or other Gastro GI: Positive for constipation, diarrhea, heartburn and nausea/dyspepsia; no abdominal pain, belching, bloating, change in bowel habits, change in stool character, coffee ground emesis, cramping, difficulty swallowing, feeling full early, excessive flatus, incontinent of stools, Vomiting blood/hematemesis, blood in stool, loose stools, Black,tarry stools, pain with swallowing, vomiting or other Genitourinary-Female: No difficulty urinating, burning urination, painful urination, urinary incontinence, urinary frequency, urinary urgency, urinary hesitancy, urinary retention, blood in urine, Frequent nighttime urination/ nocturia, post void dribbling, suprapubic fullness, side pain, sexual problems, genital lesions, genital itching, hot flashes, abnormal periods, abnormal vaginal bleeding, absent period, painful periods, light periods, heavy periods, difficulty getting , painful intercourse, pelvic pain, vaginal dryness, vaginal odor, Vaginal Itching or other Musc Musculoskeletal: Positive for joint pain (bilat legs and hips) and muscle cramps (bilat legs and hips); no abnormal walking, back pain, deformity, joint swelling, limited range of motion, loss of height, muscle weakness, decreased muscle mass, body aches, neck pain, numbness, radiating pain into limb, stiffness, tingling or other Skin Skin: Positive for boil; no acne, hair loss, change in hair, nail changes, change in skin color, dry skin, redness, excessive hair growth, yellowing of the skin, lesions, itching, rash, skin pain, skin ulcer, sores, skin swelling, wounds or other Breast Breast: No other Neuro Neurology: No frequent falls, weakness, visual disturbances, abnormal hearing, headache(s), abnormal walking, numbness or tingling Psych Psychiatric: No abnormal sleep pattern, No change in appetite Endo Endocrine: Positive for fatigue; no other or excessive sweating Aller/Imm Allergy/Immunologic: Positive for wheezing; no lip swelling, tongue swelling, throat swelling or itchy eyes Assessment AND Plan Problems 1. Type 2 diabetes mellitus with complication, with long-term current use of insulin E11.8 Plan Discussed pathophysiology with patient. Does not check enough Bg to allow me to adjust medication. She has unusual fear of any new medication as verbalized by patient. Will have patient obtain data and call to office so that I can make informed decision regarding best approach to her treatment Will place feliberto pro sensor when available. On lisinopril On statin BP controlled. Will obtain her medical records. Plan Detail Additional Comments 1. Please schedule follow up in 3 months. 2. Lab work one week before appointment. 3. Discussed importance of regular exercise and recommend starting or continuing a regular exercise program for good health. 4. The patient was encouraged to lose weight for good health 5. The importance of monitoring blood sugar regularly was reviewed. 6. The importance of monitoring the HBA1c level regularly was reviewed. 7. The importance of prper foot care and regularly checking feet to prevent sores and loss of limbs was reviewed. 8. The importance of keeping BP at or below 130/80 to prevent stroke, heart attacks, kidney failure, blindness was reviewed. Spent approximately 30 minutes with patient with over 50% of time spent in discussion and counseling regarding medication adjustment, symptoms and treatment of hypoglycemia, diet adherence, and checking BG before driving. 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 1. Little interest or pleasure in doing things: several days 2. Feeling down, depressed, or hopeless: not at all Total score: 1 If score is 2 or greater, continue 3. Trouble falling or staying asleep, or sleeping too much: more than half the days 4. Feeling tired or having little energy: more than half the days 5. Poor appetite or overeating: not at all 6. Feeling bad about yourself - or that you are a failure or have let yourself and your family down: not at all 7. Trouble concentrating on things, such as reading the newspaper or watching television: not at all 8. Moving or speaking so slowly that other people could have noticed? - Or the opposite - being so fidgety or restless that you have been moving around a lot more than usual: not at all 9. Thoughts that you would be better off or of hurting yourself in some way: not at all Total score: 5 If you checked off any problems, how difficult have these problems made it for you to do your work, take care of things at home, or get along with other people?: somewhat difficult Source: Developed by Drs. Hemant Burgos, Irene Redding, Javier Gutiérrez and colleagues, with an educational alberto from [employer]. Scoring: Total Score Depression Severity Action 1-4 Minimal depression No action needed 5-9 Mild depression Repeat PHQ-9 at follow up 10-14 Moderate depression Make tx plan,consider counseling, fup, prescription 07/21/18 2100 <Electronically signed by Louise MOORE> Date Louise MOORE Cosigner Signature: Date (if applicable) CC: SURGERY VISIT REPORT Observed: 05/15/2018 Status: F Source: LUIS ENRIQUE 1:55 PM [facility] REPOS[facility] [address] [place] [address] OFFICE VISIT Date of Service: 05/15/18 MR#: [id number] Acct: [id number] Name: HALLIE AVILA Rep #: [id number] : 1980 Provider: Afua Irene MD Age/Sex: 37/F Location: [facility] Status: Signed Intake Intake Visit Reasons: Abscess Pubic area Dub Room Engineer Required: No Is patient in pain?: No Allergies clindamycin Allergy (Verified 05/15/18 13:00) Rash morphine Adverse Reaction (Verified 05/15/18 13:00) Upset Stomach Medications Levothyroxine [Synthroid] 75 mcg PO QHS 01/13/17 [History Confirmed 05/15/18] Lorazepam [Ativan] 0.5 mg PO DAILY PRN PRN 01/13/17 [History Confirmed 05/15/18] MedroxyPROGESTERone [Depo-Provera] 150 mg IM .[id number] 01/13/17 [History Confirmed 05/15/18] Pantoprazole Sodium [Protonix] 20 mg PO QHS 01/13/17 [History Confirmed 05/15/18] Paroxetine [Paxil] 10 mg PO QHS 01/13/17 [History Confirmed 05/15/18] Pioglitazone [Actos] 30 mg PO QHS 01/13/17 [History Confirmed 05/15/18] Lisinopril [Zestril] 30 mg PO DAILY 08/16/17 [History Confirmed 05/15/18] Lorazepam [Ativan] 0.5 mg PO BID PRN PRN 08/19/17 [History Confirmed 05/15/18] insulin degludec (U-100) 100 unit/mL (3 mL) subcutaneous pen See Label Instructions SC QHS 12/10/17 [History Confirmed 05/15/18] doxycycline hyclate 100 mg capsule 100 mg PO BID #20 cap 05/07/18 [Rx Confirmed 05/15/18] rosuvastatin 40 mg tablet 40 mg PO QDAY 05/15/18 [History Confirmed 05/15/18] PFSH Medical History Hypothyroidism (Acute) HTN (hypertension) (Chronic) Tobacco use (Chronic) HLD (hyperlipidemia) (Chronic) Obesity (BMI 30.0-34.9) (Chronic) Diabetes mellitus, type II (Chronic) GERD (gastroesophageal reflux disease) (Acute) HTN (hypertension), benign (Acute) Labial cyst (Acute) Surgical History Abdominal wall abscess (Acute) History of bilateral carpal tunnel release (Acute) Family History Mother Diabetes Hypertension CAD (coronary artery disease) Father Diabetes Hypertension Social History Smoking Status: Current every day smoker alcohol intake: current alcohol intake frequency: holidays/special occasions only HPI HPI HPI: HALLIE AVILA, is a 37 F who presents to the office today for follow-up of I AND D of the right lateral mons area due to an MRSA abscess. Patient states that she has 3 days left of the doxycycline and an area is improving less tender, less erythema and patient also states that the area on the left labia is also improving. Patient did see Dr. Carias and there is no need for an I AND D of the left labia as it was improving with antibiotics. Exam Const General: cooperative, comfortable, no acute distress Other: Right lateral mons: I AND D site clean dry and intact with iodoform in the wound, good granulation tissue, minimal erythema at the edge, minimal tenderness palpation Assessment AND Plan Problems 1. Abscess of pubic region L02.219 2. Obesity (BMI 30.0-34.9) E66.9 3. Type 2 diabetes mellitus with complication, with long-term current use of insulin E11.8 Plan Patient's I AND D site is healing well. Continue packing until unable to pack any longer. Complete scripts of doxycycline. Recommend patient bathe with Hibiclens once every 1-2 weeks due to multiple MRSA infections. Will also check with endocrine office of [facility] to see if they did get the referral. Follow-up as needed patient and mother are agreeable plan. Afua Irene M.D. Pager: [phone] [facility] [address] [place] [address], [facility], [address] [place] [id number] Office: [phone] Plan Detail Follow Up prn Coding Level of Care Code Global Post Op Diagnoses Abscess of pubic region L02.219 Obesity (BMI 30.0-34.9) E66.9 Type 2 diabetes mellitus with complication, with long-term current use of insulin E11.8 Diabetes mellitus complication status: with unspecified complications Diabetes mellitus detention insulin use: with detention use 05/15/18 1355 <Electronically signed by Afua Irene MD> Date Afua Irene MD Cosigner Signature: Date (if applicable) CC: Louise Thomas IRRIGATOR HEAD; Hemant Carrizales DO MANAGER OF INTERNATIONAL OFFICE VISIT Observed: 05/15/2018 Status: F Source: LUIS ENRIQUE REPORT 1:28 PM [facility] REPOSITORY [facility] [address] [place] [address] OFFICE VISIT Date of Service: 05/15/18 MR#: [id number] Acct: [id number] Name: HALLIE AVILA Rep #: [id number] : 1980 Provider: Chen Carias MD Age/Sex: 37/F [place] [facility] Status: Signed Intake Vital Signs05/15/18 Height 5 ft 5 in 05/15/18 Weight: 192 lb 4 oz 05/15/18 Body Mass Index (BMI) 32.0 05/15/18 Blood Pressure 126/70 Intake Visit Reasons: F/U labial cyst Dub Room Engineer Required: No Is patient in pain?: No Allergies clindamycin Allergy (Verified 05/15/18 13:00) Rash morphine Adverse Reaction (Verified 05/15/18 13:00) Upset Stomach Medications Levothyroxine [Synthroid] 75 mcg PO QHS 01/13/17 [History Confirmed 05/15/18] Lorazepam [Ativan] 0.5 mg PO DAILY PRN PRN 01/13/17 [History Confirmed 05/15/18] MedroxyPROGESTERone [Depo-Provera] 150 mg IM .[id number] 01/13/17 [History Confirmed 05/15/18] Pantoprazole Sodium [Protonix] 20 mg PO QHS 01/13/17 [History Confirmed 05/15/18] Paroxetine [Paxil] 10 mg PO QHS 01/13/17 [History Confirmed 05/15/18] Pioglitazone [Actos] 30 mg PO QHS 01/13/17 [History Confirmed 05/15/18] Lisinopril [Zestril] 30 mg PO DAILY 08/16/17 [History Confirmed 05/15/18] Lorazepam [Ativan] 0.5 mg PO BID PRN PRN 08/19/17 [History Confirmed 05/15/18] insulin degludec (U-100) 100 unit/mL (3 mL) subcutaneous pen See Label Instructions SC QHS 12/10/17 [History Confirmed 05/15/18] doxycycline hyclate 100 mg capsule 100 mg PO BID #20 cap 05/07/18 [Rx Confirmed 05/15/18] rosuvastatin 40 mg tablet 40 mg PO QDAY 05/15/18 [History Confirmed 05/15/18] Is last menstrual period known: No Post menopausal: No Patient : No : No PFSH Medical History Hypothyroidism (Acute) HTN (hypertension) (Chronic) Tobacco use (Chronic) HLD (hyperlipidemia) (Chronic) Obesity (BMI 30.0-34.9) (Chronic) Diabetes mellitus, type II (Chronic) GERD (gastroesophageal reflux disease) (Acute) HTN (hypertension), benign (Acute) Labial cyst (Acute) Surgical History Abdominal wall abscess (Acute) History of bilateral carpal tunnel release (Acute) Family History Mother Diabetes Hypertension CAD (coronary artery disease) Father Diabetes Hypertension Social History Smoking Status: Current every day smoker alcohol intake: current alcohol intake frequency: holidays/special occasions only HPI F/U labial cyst: Details: HALLIE AVILA is a 37 year old who presents for labial lump. she has had several recently and had one drained by dr irene. she has been on doxycycline with improvement, denies any fevers. she denies any discharge from it and it's decreasing in size. Pregancy History 0 Elective abortions Hx Para Spontaneous abortions ROS Const Constitutional: Reports system reviewed and no additional complaints, except as docu : Reports as per HPI Exam Const General: cooperative, well developed, comfortable External Female Exam: normal external appearance (left 1 cm nontender nonfluctuant lump), external lesions (left periclitoral 1.5 cm genital wart) Other: right gauze pad attached to mons s/p drainage Assessment AND Plan Problems 1. Vulvar abscess N76.4 Plan small abscess has improved with antibiotics, no drainage needed. instructions given and recommend fu for annual and genital wart TCA treatment in 1-2 months Coding Level of Care Code Off vis,new,level 3 Diagnoses Vulvar abscess N76.4 05/15/18 1328 <Electronically signed by Chen Carias MD> Date Chen Carias MD Cosigner Signature: Date (if applicable) CC: Observed: 05/07/2018 Status: F Source: LUIS ENRIQUE CULTURE, DEEP WOUND 11:48 AM [facility] REPOSITORY Results faxed on 05/09/18-4148 by CYNTHIA . Gram Stain Gram Stain 2+ Red Blood Cells Rare White Blood Cells 1+ Gram positive cocci Wound Culture Copy of report sent to Infection Control Printer [id number] 05/09/18 6491 CYNTHAI. ORGANISM 1: Meth. resistant Staph. aureus Amount Growth 3+ Meth. resistant Staph. aureus: REACTION Benzylpenicillin NF >=0.5 R Cefoxitin *NF + Clindamycin $$ <=0.25 S Inducable Clindamycin Resistan - Erythromycin $ <=0.25 S Gentamicin $ <=0.5 S Levofloxacin $ 4 I Linezolid $$$$ 2 S Oxacillin NF >=4 R Tigecycline $$$$ <=0.12 S Rifampin $$ <=0.5 S Tetracycline NF <=1 S Trimethoprim/Sulfametho $ <=10 S Vancomycin $ 1 S (NF) indicates non-formulary drug at [facility]. Approval by Infectious Disease Specialist required before non-formulary drugs may be ordered and/or dispensed. * CLSI guidelines does not recommend testing of cephalosporins. This interpretation is deduced from Beta-lactam/penicillin results. Cult, Anaerobic * This is an amended result. * A prior result that was reported as final has been changed. 05/11/18 08 by JEIMY Previously reported as: FINAL No anaerobic bacteria isolated. Performed By: #### M100.1500 #### [facility] [address] [facility] [place], [place], [id number] SURGERY VISIT REPORT Observed: 05/07/2018 Status: F Source: CECIL 10:45 AM [facility] [address] [place] [address] OFFICE VISIT Date of Service: 05/07/18 MR#: [id number] Acct: [id number] Name: HALLIE AVILA Rep #: [id number] : 1980 Provider: Afua Irene MD Age/Sex: 37/F Location: [facility] Status: Signed Intake Vital Signs05/07/18 Height 5 ft 5 in 05/07/18 Weight: 192 lb Intake Visit Reasons: Abscess Pubic area Dub Room Engineer Required: No Is patient in pain?: No Allergies clindamycin Allergy (Verified 05/07/18 09:37) Rash morphine Adverse Reaction (Verified 05/07/18 09:37) Upset Stomach Medications Levothyroxine [Synthroid] 75 mcg PO QHS 01/13/17 [History Confirmed 05/07/18] Lorazepam [Ativan] 0.5 mg PO DAILY PRN PRN 01/13/17 [History Confirmed 05/07/18] MedroxyPROGESTERone [Depo-Provera] 150 mg IM .[id number] 01/13/17 [History Confirmed 05/07/18] Pantoprazole Sodium [Protonix] 20 mg PO QHS 01/13/17 [History Confirmed 05/07/18] Paroxetine [Paxil] 10 mg PO QHS 01/13/17 [History Confirmed 05/07/18] Pioglitazone [Actos] 30 mg PO QHS 01/13/17 [History Confirmed 05/07/18] Lisinopril [Zestril] 30 mg PO DAILY 08/16/17 [History Confirmed 05/07/18] Simvastatin [Zocor] 40 mg PO DAILY 08/16/17 [History Confirmed 05/07/18] Lorazepam [Ativan] 0.5 mg PO BID PRN PRN 08/19/17 [History Confirmed 05/07/18] insulin degludec (U-100) 100 unit/mL (3 mL) subcutaneous pen See Label Instructions SC QHS 12/10/17 [History Confirmed 05/07/18] doxycycline hyclate 100 mg capsule 100 mg PO BID #20 cap 05/07/18 [Rx Confirmed 05/07/18] PFSH Medical History Hypothyroidism (Acute) HTN (hypertension) (Chronic) Tobacco use (Chronic) HLD (hyperlipidemia) (Chronic) Obesity (BMI 30.0-34.9) (Chronic) Diabetes mellitus, type II (Chronic) GERD (gastroesophageal reflux disease) (Acute) HTN (hypertension), benign (Acute) Surgical History Abdominal wall abscess (Acute) History of bilateral carpal tunnel release (Acute) Family History Mother Diabetes Hypertension CAD (coronary artery disease) Father Diabetes Hypertension Social History Smoking Status: Current every day smoker alcohol intake: current alcohol intake frequency: holidays/special occasions only HPI HPI HPI: HALLIE AVILA, is a 37 F who presents to the office today for new abscess in her pubic area. Patient is a diabetic she states her blood sugars run between 2-320 checks about once a week and she was supposed to increase 1 of her medications but has not increased the dose currently. She has a history of MRSA abscess of her abdomen which required hospitalization and debridement. She has had multiple other abscesses in the past. Patient states that this area in her lateral right mons started about 3 or 4 days ago so she called for an appointment. She has no cysts red tender to the touch denies any drainage currently. There is also an area of her left labia that she thinks may be starting another abscess. Patient states she has not been using chlorhexidine about once every 1-2 weeks to try to prevent these infections. Exam Const General: cooperative, comfortable, no acute distress GI Inspection: obesity, non-distended, scar (Left lower abdominal previous abscess well-healed) Palpation: soft, nontender Other: Right lateral mons: the area of erythema 4.5 cm x 4.5 cm with an area of darker erythema about 2 cm x 2 cm with a small area with purple discoloration at the center, no drainage, tenderness palpation. Left labia area of swelling about 2 x 2 cm with some erythema/induration no obvious fluid pocket seen with bedside ultrasound Office Procedures Incision and Drainage Provider Documentation Provider Documentation: The patient's right lower mons was clipped with clippers. The area was prepped and draped in usual sterile fashion with Betadine. 1% lidocaine with epinephrine was used for local anesthetic a total of 4 cc. A cruciate incision was made with 11 blade scalpel and the edges were also removed to prevent the wound from healing over. Cultures were obtained. There was a small amount of purulent fluid. Loculations were broke up with hemostats and a small amount of tissue was also debrided with the 11 blade scalpel. The wound was irrigated with saline. And packed with quarter inch iodoform gauze and covered with gauze and tape. Patient tolerated procedure well. Alert Search Engineer Alert Billing: Yes Incision and Drainage 54108 Complex/Multiple Procedure Time Out Time Out Informed consent given: Yes Consent signed: Yes Time out checklist: patient Time out staff in room: Yes Time out verified: Yes Time out date: 05/07/18 Time out time: 09:50 Assessment AND Plan Problems 1. Abscess of pubic region L02.219 2. Type 2 diabetes mellitus with complication, with long-term current use of insulin E11.8 3. Obesity (BMI 30.0-34.9) E66.9 Plan The abscess of the right lateral mons was I AND D please see report for further details. The left labia does have the swelling with some erythema, will defer to ACID CHANGER on whether this would need an incision or drainage. Will start patient on doxycycline 100 mg p.o. twice daily for 10 days as her last culture was susceptible. Refer patient to Endocrinology and due to her poor glucose control which is likely causing her to also get more infections. The patient continued to pack the wound with iodoform 1/4- inch packing twice daily and follow-up in 1 week. Afua Irene M.D. Pager: [phone] [facility] [address] [place] [address], [address] [place] [address] Office: [phone] Orders Orders: Referrals: Medications New: Plan Detail Follow Up 1 Week Coding Level of Care Code Off vis,est,level 3 Diagnoses Abscess of pubic region L02.219 Type 2 diabetes mellitus with complication, with long-term current use of insulin E11.8 Diabetes mellitus complication status: with unspecified complications Diabetes mellitus detention insulin use: with detention use Obesity (BMI 30.0-34.9) E66.9 Additional Codes Incision and Drainage - I AND D: 49564 Complex/Multiple (23379) 05/07/18 1044 <Electronically signed by Afua Irene MD> Date Afua Irene MD Cosigner Signature: Date (if applicable) CC: Louise Thomas IRRIGATOR HEAD; Hemant Carrizales DO; Chen Carias MD SURGERY VISIT REPORT Observed: 12/17/2017 Status: F Source: CECIL 2:35 PM [facility] RE[facility] [address] [place] [address] OFFICE VISIT Date of Service: 12/17/17 MR#: [id number] Acct: [id number] Name: HALLIE AVILA Rep #: [id number] : 1980 Provider: Ann Rivera PA-C Age/Sex: 37/F Location: [facility] Status: Signed Intake Vital Signs12/17/17 Body Mass Index (BMI) 31.6 12/17/17 Blood Pressure 137/85 Intake Visit Reasons: f/u i AND D pilonidal 12/10/2017 Dub Room Engineer Required: No Is patient in pain?: No Allergies clindamycin Allergy (Verified 12/17/17 08:23) Rash morphine Adverse Reaction (Verified 12/17/17 08:23) Upset Stomach Medications Levothyroxine [Synthroid] 75 mcg PO QHS 01/13/17 [History Confirmed 12/17/17] Lorazepam [Ativan] 0.5 mg PO DAILY PRN PRN 01/13/17 [History Confirmed 12/17/17] MedroxyPROGESTERone [Depo-Provera] 150 mg IM .[id number] 01/13/17 [History Confirmed 12/17/17] Pantoprazole Sodium [Protonix] 20 mg PO QHS 01/13/17 [History Confirmed 12/17/17] Paroxetine [Paxil] 10 mg PO QHS 01/13/17 [History Confirmed 12/17/17] Pioglitazone [Actos] 30 mg PO QHS 01/13/17 [History Confirmed 12/17/17] Lisinopril [Zestril] 30 mg PO DAILY 08/16/17 [History Confirmed 12/17/17] Simvastatin [Zocor] 40 mg PO DAILY 08/16/17 [History Confirmed 12/17/17] Lorazepam [Ativan] 0.5 mg PO BID PRN PRN 08/19/17 [History Confirmed 12/17/17] doxycycline hyclate 100 mg capsule 100 mg PO BID #20 cap 12/10/17 [Rx Confirmed 12/17/17] insulin degludec (U-100) 100 unit/mL (3 mL) subcutaneous pen See Label Instructions SC QHS 12/10/17 [History Confirmed 12/17/17] PFSH Medical History Hypothyroidism (Acute) HTN (hypertension) (Chronic) Tobacco use (Chronic) HLD (hyperlipidemia) (Chronic) Obesity (BMI 30.0-34.9) (Chronic) Diabetes mellitus, type II (Chronic) GERD (gastroesophageal reflux disease) (Acute) HTN (hypertension), benign (Acute) Surgical History Abdominal wall abscess (Acute) History of bilateral carpal tunnel release (Acute) Family History Mother Diabetes Hypertension CAD (coronary artery disease) Father Diabetes Hypertension Social History Smoking Status: Current every day smoker alcohol intake: current alcohol intake frequency: holidays/special occasions only HPI HPI HPI: HALLIE AVILA, is a 37 F I am following for a pilonidal abscess. I performed an incision and drainage of the pilonidal abscess on 12/10/17. Patient tolerated the procedure well. She denies pain/discomfort. She notes minimal amount of bleeding with wiping. Patient denies purulent material. She notes feeling much improved. Exam GI Other: Pilonidal region- incision slightly opened. No active drainage noted. No erythema. Non-tender. Assessment AND Plan Problems 1. Pilonidal abscess L05.01 Plan - Continue to wash with antibacterial soap - Follow-up as needed Coding Level of Care Code Global Post Op Diagnoses Pilonidal abscess L05.01 12/17/17 9325 <Electronically signed by Ann Rivera PA-C> Date Ann Rivera PA-C Cosigner Signature: Date (if applicable) CC: SURGERY VISIT REPORT Observed: 12/10/2017 Status: F Source: LUIS ENRIQUE 10:07 AM [facility] REPOSITORY [facility] [address] [place] [address] OFFICE VISIT Date of Service: 12/10/17 MR#: [id number] Acct: [id number] Name: HALLIE AVILA Rep #: [id number] : 1980 Provider: Ann Rivera PA-C Age/Sex: 37/F Location: [facility] Status: Signed Intake Vital Signs12/10/17 Height 5 ft 5 in 12/10/17 Weight: 190 lb 12/10/17 Body Mass Index (BMI) 31.6 Intake Visit Reasons: ABSCESS/POSSIBLE PILONIDAL Dub Room Engineer Required: No Is patient in pain?: Yes (pilonidal cyst) Pain scale (1-10): 9 Allergies clindamycin Allergy (Verified 12/10/17 08:51) Rash morphine Adverse Reaction (Verified 12/10/17 08:51) Upset Stomach Medications Levothyroxine [Synthroid] 75 mcg PO QHS 01/13/17 [History Confirmed 12/10/17] Lorazepam [Ativan] 0.5 mg PO DAILY PRN PRN 01/13/17 [History Confirmed 12/10/17] MedroxyPROGESTERone [Depo-Provera] 150 mg IM .[id number] 01/13/17 [History Confirmed 08/25/17] Pantoprazole Sodium [Protonix] 20 mg PO QHS 01/13/17 [History Confirmed 12/10/17] Paroxetine [Paxil] 10 mg PO QHS 01/13/17 [History Confirmed 12/10/17] Pioglitazone [Actos] 30 mg PO QHS 01/13/17 [History Confirmed 12/10/17] Lisinopril [Zestril] 30 mg PO DAILY 08/16/17 [History Confirmed 12/10/17] Simvastatin [Zocor] 40 mg PO DAILY 08/16/17 [History Confirmed 12/10/17] Lorazepam [Ativan] 0.5 mg PO BID PRN PRN 08/19/17 [History Confirmed 12/10/17] doxycycline hyclate 100 mg capsule 100 mg PO BID #20 cap 12/10/17 [Rx Confirmed 12/10/17] insulin degludec 100 unit/mL (3 mL) subcutaneous pen See Label Instructions SC QHS 12/10/17 [History Confirmed 12/10/17] [facility] Medical History Hypothyroidism (Acute) HTN (hypertension) (Chronic) Tobacco use (Chronic) HLD (hyperlipidemia) (Chronic) Obesity (BMI 30.0-34.9) (Chronic) Diabetes mellitus, type II (Chronic) GERD (gastroesophageal reflux disease) (Acute) HTN (hypertension), benign (Acute) Surgical History Abdominal wall abscess (Acute) History of bilateral carpal tunnel release (Acute) Family History Mother Diabetes Hypertension CAD (coronary artery disease) Father Diabetes Hypertension Social History Smoking Status: Current every day smoker alcohol intake: current alcohol intake frequency: holidays/special occasions only HPI HPI HPI: HALLIE AVILA, is a 37 F who presents with a draining lump on her buttock. She notes this started last Friday and the pain progressing worsened. She noted the area draining some blood. She denies pus. She denies having previous pilonidal cyst. Patient does have a history of MRSA. She notes long history of abscesses over her body. 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 She has a history of diabetes. ROS General General: No weight change, appetite, fatigue, colon cancer, breast cancer or weakness HEENT HEENT: No difficulty swallowing, eye injury, eye surgery, swollen glands or hoarseness Endo Endocrine: Yes diabetes mellitus; no thyroid disease, thyroid cancer, Hair loss, heat intolerance or cold intolerance Skin Skin: No rash or changing moles Breast Breast: No left breast lump, right breast lump, nipple discharge, breast pain, abnormal mammogram, abnormal US or breast enlargement Musc Musculoskeletal: No back problems, arthritis, rheumatoid arthritis, gout or joint pain Cardio Cardiovascular: Yes high blood pressure; no murmur, pacemaker, heart disease, atrial fibrillation, heart attack, heart stent, palpitations, shortness of breat with exertion or chest pain Psych Psychiatric: Yes anxiety; no depression or hearing voices Resp Respiratory: Yes cough, No shortness of breath, No sleep apnea, No COPD, No asthma, No emphysema, No wheezing Gastro Gastrointestinal: Yes acid reflux, No abdominal pain, No nausea or vomiting, No diarrhea, No constipation, No blood in stool, No hemorrhoids, No ulcers, No gallbladder problem, No black,tarry stools Luis Hematologic: No blood thinners, No blood disorders, No bleeding, No anemia, No blood clots Neuro Neurologic: Yes numbness, Yes tingling, No system reviewed and no additional complaints, except as docu, No as per HPI, No abnormal walking, No abnormal hearing, No abnormal movements, No abnormal speech, No behavioral changes, No burning sensations, No confusion, No seizure-like activity, No unsteadiness, No dizziness, No localized weakness, No frequent falls, No headache(s), No lack of coordination, No loss of vision, No memory loss, No other visual disturbances, No radiating pain, No restless legs, No sensory deficit, No fainting, No tremor(s), No weakness, No other Exam Const General: cooperative, comfortable, in distress mild, anxious HENMT Head: normal to inspection Eyes General: appearance normal, both eyes and all related structures Neck Neck mass: No Chest Breast Palpation: No nipple discharge Resp Effort AND Inspection: normal respiratory effort Auscultation: clear to auscultation bilaterally Cardio Rate: regular rate Rhythm: regular rhythm Heart Sounds: no murmurs GI Inspection: normal to inspection, obesity Palpation: soft Other: Pilonidal region- fluctuate lump with pain to palpation. No surrounding erythema. Ulcerated skin breakdown over the middle aspect of the abscess Skin General: fluctulance (pilonidal region) Neuro Cranial Nerves: CN's II-XI intact bilaterally Extrem General: normal to inspection Psych Appearance: grossly normal Affect: anxious affect Office Procedures 40383 I AND D Pilonidal Performed By: Procedure performed by: Ann Rivera Details: Signed consent was obtained. Patient was positioned in prone position. Betadine was used to cleanse the patient. Sterile drapes were placed. 1% Lidocaine and 0.5% Marcaine 50/50 mixture was used for local anesthesia. 10 cc was injected locally to assist with numbing the area. 3 cm linear incision was made with small amount of malodorous dark yellow purulent material was expressed. Cavity was probed and plain packing was placed. Patient was cleansed with normal saline to remove betadine. Patient tolerated the procedure well. Wound care instructions were provided to the patient. Procedure Time Out Time Out Informed consent given: Yes Consent signed: Yes Time out checklist: patient, procedure, site marked/identified, positioning of patient, supplies available, allergies confirmed, team agrees on procedure Time out staff in room: Yes Time out verified: Yes Time out date: 12/10/17 Time out time: 09:32 Assessment AND Plan Problems 1. Pilonidal abscess L05.01 Plan - Remove packing tomorrow - After packing removed, perform sitz bathes at least daily or twice daily with Epsom salts - Continue to keep the incision covered until completely closed - Wash with antibacterial soap - Due to patient's history of MRSA, she was placed on doxycycline for 10 days - Follow-up in 1 week. Orders Orders: Medications New: Discontinued: oxycodone-acetaminophen 5-325 mg Discontin1 - 2 tabs PO Q6H PRN PRN Pain Inocencia C Siders ued Reason: Pt no longer taking Coding Level of Care Code Off vis,est,level 3 Diagnoses Pilonidal abscess L05.01 Comment I AND D pilonidal abscess 12/10/17 1007 <Electronically signed by Ann Rivera PA-C> Date Ann Rivera PA-C Cosigner Signature: Date (if applicable) CC: Hemant Carrizales DO ALLERGIES ALLERGIES DATE TYPE / CODE NAME / CODE REACTION SEVERITY SOURCE 10/20/2018 Drug morphine/F00 Upset Stomach Unknown [facility] Allergy/4160 [id number]([place] 2613502(SNOMED RM) Repository CT) 10/20/2018 Drug clindamycin/ Rash Unknown [facility] Allergy/4160 [id number]([facility] 19254(SNOMED XNORM) Repository CT) ENCOUNTERS ENCOUNTERS ADMIT/DISCHARGE ACCOUNT ADMITTING ENCOUNTER LOCATION SOURCE NUMBER CLASS 11/24/2018 [id number] Ambulatory [facility] Luis Enrique 5 [facility] ing:MTLAB Repository 10/20/2018/ [id number] Ambulatory BMSBuilding:B [facility] 8 2 [place] Repository 09/29/2018/ [id number] Ambulatory BMSBuilding:B [facility] 8 2 [place] Repository 08/26/2018/ [id number] Ambulatory BMSBuilding:B [facility] 8 7 [facility] Repository 08/04/2018/ [id number] Ambulatory BMSBuilding:B [facility] 8 5 [facility] Repository 07/21/2018/ [id number] Ambulatory BMSBuilding:B [facility] 8 6 [place] Repository 05/15/2018/ [id number] Ambulatory BMSBuilding:B Luis Enrique 8 3 [place] Repository 05/15/2018/ [id number] Ambulatory BMSBuilding:B [facility] 8 2 [place] Repository 05/07/2018 [id number] Ambulatory [facility] 7 [facility] ing:LABSPEC Repository 05/07/2018/ [id number] Ambulatory BMSBuilding:B Luis Enrique 8 5 [place] Repository 12/17/2017/ [id number] Ambulatory BMSBuilding:B Luis Enrique 8 4 [place] Repository 12/10/2017/ [id number] Ambulatory BMSBuilding:B [facility] 8 0 [place].[facility] Repository PAYERS PAYERS ENCOUNTER GUARANTOR PAYER SUBSCRIBER SOURCE 11/24/2018 HALLIE SAM Primary HALLIE BACON Insurance:[facility] [id number] Hospital [address]Dlt: (330) Number: Repository [phone] HP) [id number] Date:[id number] [address]TH: 11/24/2018 Secondary NOT GIVENUNK Luis Enrique Insurance:SELF PAY [facility] Number: Effective Repository Date:2018-11-24 10/20/2018 HALLIE AVILA158 Primary HALLIE BACON Insurance:MEDICAL HOWELLDOB: [facility] [id number] Hospital [address]Tnc: (330) Number: Repository [phone] () [id number] Date:8945-81-79TB [address] [place] [address]EO: 10/20/2018 Secondary NOT GIVENUNK Luis Ernique Insurance:SELF PAY [facility] Number: Effective Repository Date:2018-10-20 09/29/2018 HALLIE AVILA158 Primary HALLIE GUERRA LEBURN Insurance:MEDICAL HOWELLDOB: [facility] [id number] Hospital [address]Cgb: (330) Number: Repository [phone] () [id number] Date:5458-93-37BW [address] [address]SU: 09/29/2018 Secondary NOT GIVENUNK Luis Enrique Insurance:SELF PAY [facility] Number: Effective Repository Date:2018-09-29 08/26/2018 HALLIE LUNDELL158 Primary HALLIE GUERRA Insurance:MEDICAL HOWELLDOB: [id number] [address]Stj: Number: Repository [id number] (HP) Date:1262-27-26NI [address] [address]KM: 08/26/2018 Secondary NOT GIVENUNK Luis Enrique Insurance:SELF PAY [facility] Number: Effective Repository Date:2018-08-26 08/04/2018 HALLIE LUNDELL158 Primary HALLIE GUERRA Insurance:MEDICAL HOWELLDOB: [facility] [id number] [address]Cew: Number: Repository [id number] (HP) Date:6396-44-12VW [address] [address]DB: 08/04/2018 Secondary NOT GIVENUNK [facility] Insurance:SELF PAY [facility] Number: Effective Repository Date:2018-08-04 07/21/2018 HALLIE SAM Primary HALLIE KAMARAER Insurance:MEDICAL HOWELLDOB: [address] [place] [address]Lki: Number: Repository [id number] (HP) Date:5426-98-14MI [place] [id number]: 07/21/2018 Secondary NOT GIVENUNK [facility] Insurance:SELF PAY [facility] Number: Effective Repository Date:2018-07-21 05/15/2018 HALLIE SAM Primary HALLIE Dudley MARI Insurance:MEDICAL HOWELLDOB: [facility] [id number] [place] [address]Cdf: Number: Repository [id number] (HP) Date:1026-19-32ZK[address] [address]OL: 05/15/2018 Secondary NOT GIVENUNK [facility] Insurance:SELF PAY [facility] Number: Effective Repository Date:2018-05-07 05/15/2018 HALLIE SAM Primary HALLIE GUERRA Insurance:MEDICAL HOWELLDOB: [address] [place] [address]Qhz: Number: Repository [id number] (HP) Date:2686-95-97NP [address] [address]KC: 05/15/2018 Secondary NOT GIVENUNK Luis Enrique Insurance:SELF PAY [facility] Number: Effective Repository Date:2018-05-15 05/07/2018 HALLIE SAM Primary HALLIE KAMARAER Insurance:MEDICAL HOWELLDOB: [address] [place] [address]Pqf: Number: Repository [id number] (HP) Date:8596-82-06WU [address] [place] [address]JH: 05/07/2018 Secondary NOT GIVENUNK Luis Enrique Insurance:SELF PAY [facility] Number: Effective Repository Date:2018-05-07 05/07/2018 HALLIE SAM Primary HALLIE HOWELLDOB: Luis Enrique MARI Insurance:MEDICAL [id number] [address]Dkw: Number: Repository [id number] (HP) Date:8736-09-08ZH [address] [place] [address]QA: 05/07/2018 Secondary NOT GIVENUNK [facility] Insurance:SELF PAY [facility] Number: Effective Repository Date:2018-05-07 12/17/2017 HALLIETAYLOR SAM Primary HALLIE HOWELLDOB: Luis Enrique MARI Insurance:MEDICAL [id number] [address]Yvw: Number: Repository [phone] [id number] (HP) Date:4904-63-89DX [address] [address]ZM: 12/17/2017 Secondary NOT GIVENUNK [facility] Insurance:SELF PAY [facility] Number: Effective Repository Date:2017-12-10 12/10/2017 HALLIETAYLOR SAM Primary HALLIE HOWELLDOB: Luis Enrique MARI Insurance:MEDICAL [id number] [place] [address]Ecr: Number: Repository [phone] [id number] (HP) Date:8633-73-32VA [address] [place] [address]TI: 12/10/2017 Secondary NOT GIVENUNK [facility] Insurance:SELF PAY [facility] Number: Effective Repository Date:2017-12-09
== END ==
LOC: LAB 10:40 → MTLAB 10:41
PROVIDERS: Family Provider Family Medicine; PCP Family Medicine; Referring Provider Nurse Practitioner; Visit Provider Nurse Practitioner
DX: E11.65 Type 2 diabetes mellitus with hyperglycemia (principal)
CPT/HCPCS: 36415; 80053; 82043; 82570; 83036; 84439; 84443

== ENCOUNTER → 2018-11-30 10:16 | Outpatient (CLI) | payer OTHER, SELFPAY ==
[2018-10-20 11:40] VITALS: BMI 32.8
[2018-11-30 12:36] LABS: Cholesterol 151 mg/dL (200); High Density Lipoprotein 38 mg/dL; Triglycerides 115 mg/dL; Very Low Density Lipoprotein 23 mg/dL (5-40)
== END ==
PROVIDERS: Family Provider Family Medicine; PCP Family Medicine; Referring Provider Nurse Practitioner; Visit Provider Nurse Practitioner
DX: E11.9 Type 2 diabetes mellitus without complications (principal)
CPT/HCPCS: 36415; 80061

== ENCOUNTER 2018-12-24 00:20 | Emergency (ER) | payer OTHER, SELFPAY ==
[2018-12-22 09:38] VITALS: BMI 32.8
[2018-12-24 00:21] VITALS: BP 132/77; PULSE 112; RESP 16; TEMP 37.4; O2SAT 100; BMI 32.4
--- NOTE | 2018-12-24 00:40 | US_ITS ---
STUDY: ABDOMINAL ULTRASOUND - RIGHT UPPER QUADRANT REASON FOR VISIT: Female, 38 years old. Right upper quadrant pain TECHNIQUE: Ultrasound evaluation of the right upper quadrant was performed with real-time and static cameron-scale imaging. TECHNICAL QUALITY: Adequate. COMPARISON: None. FINDINGS: Liver: The liver measures 15.7 cm. Homogenous hyperechogenicity of the liver parenchyma. The bile ducts are within normal limits. There is hepatic color flow. The direction of portal flow is hepatopetal. There is no demonstrated mass lesion. Gallbladder: Partial contraction. The gallbladder wall measures 1.8 mm. There is a negative sonographic Ordonez's sign. There is no pericholecystic fluid. There are no gallstones. Common Bile Duct (C.B.D.): The common bile duct measures 2 mm. Pancreas: Nonvisualized secondary to overlying bowel gas. There is normal echogenicity of the pancreas. There is no demonstrated pancreatic mass or cyst. Right Kidney: Normal size of the right kidney. The right kidney measures 11.9 x 5.0 x 6.7 cm. Normal renal cortex. The right cortex measures 1.7 cm. There is no demonstrated renal mass or cyst. There is no right hydronephrosis. US/Gallbladder IMPRESSION: 1. Fatty infiltration of the liver. 2. Nonvisualization of the pancreas due to overlying bowel gas. Electronically Signed: Tung Willett MD at 2:28 EST Tel , Service support ,
[2018-12-24] MEDS: Mag Hydrox/Al Hydrox/Simeth 30 ML UDC PO (00:58)
[2018-12-24] MEDS: Ondansetron 4 MG/2 ML Vial IV (00:58)
[2018-12-24] MEDS: 0.9% Normal Saline 1,000 ML 125 ML IV (00:58)
[2018-12-24 01:00] LABS: Mucous, Urine 0 SEEN /hpf (<or=2+); White Blood Cells 0 SEEN /hpf (0-5)
[2018-12-24 01:03] LABS: Color, Urine Yellow (Yellow); Glucose, Dipstick 1000 mg/dl (Normal); Ketone-Dipstick 15 mg/dl (Negative); Leukocyte Esterase-Dipstick Negative /ul (Negative); Nitrite-Dipstick Negative (Negative); Occult Blood-Urine 10 /ul (Negative); Protein-Dipstick 15 mg/dl (Negative); Urine Bilirubin Dipstick Negative (Negative); Urine Clarity Sl. Cloudy (Clear); Urine Urobilinogen Normal (Normal)
[2018-12-24 01:04] LABS: Absolute Lymphocyte Count 1.34 X10^3/ul (0.83-4.51); Absolute Neutrophil Count 7.7 X10^3/uL (2.0-7.7); Basophil# 0.02 X10^3/uL; Basophil% 0.2 % (0-1); Eosinophil# 0.07 X10^3/uL; Eosinophils% 0.7 % (0-5); Hematocrit 45.9 % (37-47); Hemoglobin 15.5 g/dl (12.0-15.0); Lymphocyte # 1.34 X10^3/ul (4.0); Mean Corp Hgb Conc 33.8 g/gl (32-36); Mean Corpuscular Hgb 27.8 pg (27.0-32.0); Mean Corpuscular Volume 82.4 fL (81-99); Mean Platelet Vol. 10.7 fl (6.2-12.0); Monocyte# 0.37 X10^3/uL; Monocyte% 3.9 % (0-10); Neutrophil # 7.72 X10^3/uL (2.7-7.7); Neutrophil % 80.9 % (47-70); Platelet Count 274 K/mm3 (150-450); RBC Distribution Width CV 13.5 % (11.6-14.6); RBC Distribution Width SD 40.4 fl (35.1-43.9); Red Blood Count 5.57 M/mm3 (4.2-5.4); White Blood Count 9.6 K/mm3 (4.4-11.0)
[2018-12-24 01:05] LABS: POSITIVE COUNT NO; POSITIVE DIFFERENTIAL NO; POSITIVE MORPHOLOGY NO
[2018-12-24 01:09] LABS: Internal QC Validated? YES +Cl - CLEAR BKGD; Pregnancy, Urine Negative Negative
[2018-12-24 01:11] LABS: Bacteria RARE /hpf (None Seen); Red Blood Cells-Urine 0-5 SEEN /hpf (0-5); Squamous Epithelial Cells - UA 0-5 SEEN /hpf (5-10)
[2018-12-24 01:26] LABS: ALB/GLOB Ratio 0.8 RATIO (0.9-2.4); AST(SGOT) 18 U/L (15-37); Alanine Aminotransfer ALT/SGPT 28 U/L (13-56); Albumin, Serum 3.4 g/dL (3.2-5.0); Alkaline Phosphatase 86 U/L (45-117); Anion Gap 9 (5-15); BUN 9 mg/dL (7-18); BUN/Creat Ratio 12.4 RATIO (10-20); Chloride 102 mmol/L (98-107); Creatinine, Serum 0.73 mg/dL (0.55-1.02); EST Glomerular Filtration Rate 96 mL/min (>60); Est Glom Filt Rate - Afr Amer 116 mL/min (>60); Estimated Creatinine Clearance 95.87 ml/min; Glucose 335 mg/dL (74-106); Lipase 198 U/L (73-393); Potassium 3.9 mmol/L (3.5-5.1); Protein, Total 7.4 g/dL (6.4-8.2); Sodium Level 134 mmol/L (136-145)
--- NOTE | 2018-12-24 04:07 | ED.VISSUMM ---
- ER Visit Summary Date of Service: 12/24/18 Chief Complaint: Abdominal pain History of Present Illness: The patient is a 38 F with abdominal pain that started around 11 PM tonight. The pain is in her epigastric region. No other associated symptoms. She tried taking Tums but had no relief. She reports similar symptoms in the past, but she is not sure what brought them on. She does report a history of ulcer and hiatal hernia as well as diabetes, hypertension, and hyperlipidemia. Denies chest pain or shortness of breath. 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 Denies trauma. Physical Examination: Afebrile and vital signs unremarkable except for heart rate of 112. She appears uncomfortable but is nontoxic and in no acute distress. Heart regular. Lungs clear. Abdomen is tender in the epigastric region. No guarding or rebound. Skin appears normal without pallor or jaundice. Test Results: Hemoglobin 15.5, glucose 335, hepatic panel normal. Lipase normal. Urinalysis unremarkable. test negative. Right upper quadrant ultrasound showed a fatty liver but otherwise was unremarkable. Emergency Department Course and Treatment: Patient was treated with fluids and Zofran while awaiting results. She also received a GI cocktail. There is nothing to suggest cardiac or respiratory or vascular disease. I suspect GI disease. Her hepatic panel and lipase were unremarkable. Labs unremarkable. Urine and testing were unremarkable. Ultrasound was unremarkable. I suspect her symptoms may be from her hiatal hernia, gastritis, peptic ulcer. She will continue her PPI at home. We will add Carafate. She was referred to Dr. Ponce for follow-up as needed. Return for any new or worsening issues. Treatment Plan: As above Disposition: Discharged Impression: 1. Epigastric pain This note was generated with [employer] software. It may contain incorrect words, spelling, and punctuation that were not noted in review of the chart prior to signing ED Disposition - Plan for ED Patient: Referrals: Walter Becerra DO [Primary Care Provider] -
--- NOTE | 2018-12-24 04:11 | ED.DCSUM_ITS ---
- ER Visit Summary Date of Service: 12/24/18 Chief Complaint: Abdominal pain History of Present Illness: The patient is a 38 F with abdominal pain that started around 11 PM tonight. The pain is in her epigastric region. No other associated symptoms. She tried taking Tums but had no relief. She reports s imilar symptoms in the past, but she is not sure what brought them on. She does report a history of ulcer and hiatal hernia as well as diabetes, hypertension, and hyperlipidemia. Denies chest pain or shortness of breath. 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 Denies trauma. Physical Examination: Afebrile and vital signs unremarkable except for heart r ate of 112. She appears uncomfortable but is nontoxic and in no acute distress. Heart regular. Lungs clear. Abdomen is tender in the epigastric region. No guarding or rebound. Skin appears normal without pallor or jaundice. Test Results: Hemoglobin 15.5, glucose 335, hepatic panel normal. Lipase normal. Urinalysis unremarkable. test negative. Right upper q uadrant ultrasound showed a fatty liver but otherwise was unremarkable. Emergency Department Course and Treatment: Patient was treated with fluids and Zofran while awaiting results. She also received a GI cocktail. There is nothing to suggest cardiac or respiratory or vascular disease. I suspect GI disease. Her hepatic panel and lipase were unremarkable. Labs unremarkable. Urine and testing were unremarkable. Ultrasound was unremarkable. I suspect her symptoms may be from her hiatal hernia, gastritis, peptic ulcer. She will continue her PPI at home. We will add Carafate. She was referred to Dr. Ponec for follow-up as needed. Return for any new or worsening issues. Treatment Plan: As above Disposition: Discharged Impression: 1. Epigastric pain This note was generated with [employer] dictation software. It may contain incorrect words, spelling, and punctuation that were not noted in review of the chart prior to signing ED Disposition - Plan for ED Patient: Referrals: Walter Becerra DO [Primary Care Provider] -
--- NOTE | 2018-12-24 04:11 | ED.DEP ---
ED Disposition - Plan for ED Patient: Instructions: ED Abdominal Pain Unkn Cause Prescriptions: Sucralfate [Carafate] 1 gm PO 4X/DAY #120 tab Referrals: Jovan Roman MD [STAFF PHYSICIAN] -
[2018-12-24 04:24] VITALS: BP 141/60; PULSE 105; RESP 16; O2SAT 96
== END 2018-12-24 04:26 | disposition home or self-care (01) ==
LOC: ED 00:51
PROVIDERS: Emergency Provider Emergency Medicine; Family Provider Family Medicine; PCP Family Medicine
DX: R10.13 Epigastric pain (principal); E11.9 Type 2 diabetes mellitus without complications; I10 Essential (primary) hypertension; E78.5 Hyperlipidemia, unspecified; Z79.4 Long term (current) use of insulin; Z79.899 Other long term (current) drug therapy
CPT/HCPCS: 76705; 80053; 81001; 81025; 83690; 85025; 96361; 96374; 99284; J7030; J2405

== ENCOUNTER → 2018-12-29 11:07 | Outpatient (CLI) | payer OTHER, SELFPAY ==
[2018-12-29 10:59] VITALS: BMI 32.4
[2018-12-29 12:59] LABS: HIV - WCH Non-Reactive (Nonreactive)
[2018-12-29 19:00] LABS: Chlamydia Trachomatis by PCR Negative (Negative); Neisserai gonorrhoeae by PCR Negative (Negative); Probe Check PASS; Sample Adequacy Control PASS; Specimen Processing Control PASS
[2018-12-31 04:09] LABS: HCV Quant. RNA PCR HCV Not Detected IU/mL (.)
[2018-12-31 12:15] LABS: HEPATITIS B SURFACE AG Negative (Negative); HSV 1 IgG < 0.91 index (0.00-0.90); HSV 2 IgG < 0.91 index (0.00-0.90)
[2019-01-01 03:11] LABS: Rapid Plasmin Reagin (RPR) NONREACTIVE (NONREACTIVE)
[2019-01-06 12:14] LABS: HPV APTIMA, High Risk Positive (Negative)
== END ==
PROVIDERS: Family Provider Family Medicine; PCP Family Medicine; Referring Provider Nurse Practitioner Women's Health; Visit Provider Nurse Practitioner Women's Health
DX: Z11.3 Encounter for screening for infections with a predominantly sexual mode of transmission (principal); Z12.4 Encounter for screening for malignant neoplasm of cervix
CPT/HCPCS: 36415; 86592; 86695; 86696; 86703; 87340; 87491; 87522; 87591; 87624; 88175; G0145; J2405

== ENCOUNTER → 2019-02-10 | Outpatient (CLI) | payer OTHER, SELFPAY ==
--- NOTE | 2019-02-10 | IMM_PTH ---
PATIENT: GINGER AVILA LOC: [facility] U#:[id number] AGE/SX: 38/F ROOM: RE02/10/[address]: Dr. Chen Carias MD : 1980 BED: DIS: 02/10/2019 SPEC #: [id number] RECD: 02/12/19 11:38 STATUS: UZMA REQ #: [id number] HOWARD: 02/10/19 00:[address]: Chen Carias DEPT: IMMUNOHISTOCHEMISTRY RECD BY: Page Reyes ENTERED: 02/12/19 11:40 SP TYPE: IMMUNO OTHR DR: Dr. Walter Becerra, Tissues: Uterine cervix, NOS Procedures: p16 (initial) KI-67 (add) PHYSICIAN & [place] [address] SPECIMEN INFORMATION: Tissue Source: Cervical biopsy Clinical Info: HGSIL Specimen Number: [id number] CPT code: 27895, 96738 METHODOLOGY: Deparaffinized sections of prefer/formalin-fixed tissue or PAP/DQ stained slides are incubated with monoclonal/polyclonal antibodies/oligonucleotide probes. Localization is made via biotin free immunoperoxidase method. Appropriate controls are performed and reacted as expected. Results on target cell population are indicated in the following table: RESULTS: ANTIBODY / CLONE RESULT P16 (E6H4) negative Ki-67 (30-9) negative These tests were developed and their performance characteristics determined by [facility]. They may not have been cleared or approved by the U.S. Food and Drug Administration. The FDA has determined that such clearance or approval is not necessary. INTERPRETATION: Uterine cervix, biopsy: Focal changes suspicious for HPV cytopathic effects. SJ:saúl 02/12/19
--- NOTE | 2019-02-10 | CER_PTH ---
PATIENT: GINGER AVILA LOC: [facility] U#:[id number] AGE/SX: 38/F ROOM: RE02/10/[address]: Dr. Chen Carias MD : 1980 BED: DIS: 02/10/2019 SPEC #: [id number] RECD: 02/10/19 16:31 STATUS: UZMA EMMANUEL #: [id number] HOWARD: 02/10/19 00:[address]: Chen Carias DEPT: SURGICAL PATHOLOGY RECD BY: Victorino Garcia ENTERED: 02/11/19 12:28 SP TYPE: CERV OTHR DR: Dr. Walter Becerra, DO Tissues: Uterine cervix, NOS Procedures: Surgery Specimen Level IV HEADER OPERATION: Colposcopy PRE-OP DIAGNOSIS: HGSIL pap TISSUE SUBMITTED: Colposcopy MICROSCOPIC DIAGNOSIS Colposcopy, cervical biopsy: Focal changes suspicious for HPV cytopathic effects. Squamous metaplasia. See comment. SJ:saúl 02/12/19 COMMENT Results of immunohistochemistry ([id number]) for surrogate HPV marker (p16) will be reported separately. MICROSCOPIC DESCRIPTION Slides are reviewed. GROSS DESCRIPTION Received is one container labeled with the patient's name and not further designated. The specimen consists of two irregular fragments of light cline soft tissue that in aggregate measure 0.5 x 0.3 x 0.1 cm. The specimen is totally submitted in one cassette. / IRINA:saúl 02/11/19 TC:5 CPT: 90305
[2019-02-10 11:00] VITALS: BMI 32.4
== END | disposition home or self-care (01) ==
LOC: LABSPEC 16:52
PROVIDERS: Family Provider Family Medicine; PCP Family Medicine; Referring Provider Obstetrics & Gynecology; Visit Provider Obstetrics & Gynecology
DX: R87.613 High grade squamous intraepithelial lesion on cytologic smear of cervix (HGSIL) (principal)
CPT/HCPCS: 88305; 88341; 88342

== ENCOUNTER → 2019-04-26 | Outpatient (CLI) | payer OTHER, SELFPAY ==
[2019-04-13 13:59] VITALS: BMI 32.4
[2019-04-26 17:49] LABS: Cholesterol 187 mg/dL (200); High Density Lipoprotein 41 mg/dL; Triglycerides 297 mg/dL; Very Low Density Lipoprotein 59 mg/dL (5-40)
== END | disposition home or self-care (01) ==
LOC: MTLAB 14:40
PROVIDERS: Family Provider Family Medicine; PCP Family Medicine; Referring Provider Family Medicine; Visit Provider Family Medicine
DX: E78.5 Hyperlipidemia, unspecified (principal)
CPT/HCPCS: 36415; 80061

== ENCOUNTER 2019-04-29 05:43 | Day surgery (SDC) | payer OTHER, SELFPAY ==
[2019-02-10 11:00] VITALS: BMI 32.4
[2019-04-13 13:59] VITALS: BMI 32.4
--- NOTE | 2019-04-18 06:10 | HP.PCM_ITS ---
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 Is patient in pain?: No Allergies clindamycin Allergy (Mild, Verified 04/13/19 13:58) hives morphine Adverse Reaction (Verified 04/13/19 13:58) Upset Stomach Medications Lorazepam [Ativan] 0.5 mg PO DAILY PRN PRN 01/13/17 [History Confirmed 03/24/19] rosuvastatin 40 mg tablet 40 mg PO QDAY 05/15/18 [History Confirmed 04/13/19] pioglitazone 30 mg tablet 30 mg PO QHS #90 tab 10/21/18 [Rx Confirmed 04/13/19] insulin degludec (U-100) 100 unit/mL (3 mL) subcutaneous pen See Rx Instructions SC QHS #60 ml 12/14/18 [Rx Confirmed 04/13/19] duloxetine 60 mg capsule,delayed release 60 mg PO DAILY #90 cap 12/22/18 [Rx Confirmed 04/13/19] levothyroxine 75 mcg tablet 75 mcg PO QHS #90 tab 12/22/18 [Rx Confirmed 04/13/19] lisinopril 30 mg tablet 30 mg PO DAILY #90 tab 12/22/18 [Rx Confirmed 03/24/19] pantoprazole 40 mg tablet,delayed release 40 mg PO DAILY #90 tab 12/22/18 [Rx Confirmed 04/13/19] Glipizide 7.5 mg PO DAILY 12/24/18 [History Confirmed 04/13/19] medroxyprogesterone 150 mg/mL intramuscular suspension 150 mg IM .d36iahj #1 ml 12/29/18 [Rx Confirmed 03/24/19] Is last menstrual period known: No Post menopausal: No Patient : No : No [facility] Medical History Hypothyroidism (Acute) HTN (hypertension) (Chronic) Tobacco use (Chronic) HLD (hyperlipidemia) (Chronic) Obesity (BMI 30.0-34.9) (Chronic) Diabetes mellitus, type II (Chronic) Anxiety and depression (Acute) GERD (gastroesophageal reflux disease) (Acute) HTN (hypertension), benign (Acute) Labial cyst (Acute) Seasonal allergies (Acute) Surgical History Abdominal wall abscess (Acute) History of bilateral carpal tunnel release (Acute) Family History Mother Diabetes Hypertension CAD (coronary artery disease) Thyroid disorder High cholesterol Father Diabetes Hypertension Cancer skin Grandmother Diabetes Hypertension Social History Smoking Status: Current every day smoker alcohol intake: current details: occasionally substance use type: does not use caffeine: Yes what type of physical activity do you participate in: none seatbelt use: always do you feel safe at home: Yes additional social history: Patient is [employer] HPI pre op leep: Details: GINGER AVILA is a 38 year old who presents for preop appointment, she is having a leep for JEYSON III. Female Reproductive History Menopausal Symptoms: No night sweats Pregancy History 0 Elective abortions Hx Para Spontaneous abortions Hx # Term Pregnancies Ectopic pregnancies Hx # Pregnancies Multiple births # of living children ROS Const Constitutional: Denies fatigue, night sweats, weight gain or weight loss ENT ENT: Reports system reviewed and no additional complaints, except as docu Cardio Card: Denies chest pain Resp Resp: Denies cough or dyspnea GI GI: Reports as per HPI; denies abdominal pain, constipation, nausea or vomiting : Denies nipple discharge, urinary frequency, urinary incontinence, urinary hesitancy, urinary urgency, vaginal discharge, vaginal dryness, vaginal odor or vaginal itching Skin Skin/Breast: Denies hair loss, change in hair, dry skin, breast lump, breast pain, breast skin changes or nipple discharge Neuro Neuro: Reports system reviewed and no additional complaints, except as docu Psych Psych: Reports system reviewed and no additional complaints, except as docu Endo Endo: Denies cold intolerance, excessive sweating, heat intolerance or increased thirst Luis/Lymph Hematologic/Lymphatic: Denies easy bleeding, Denies easy bruising, Denies enlarged lymph nodes Exam Const General: cooperative, healthy appearing, comfortable, no acute distress, well developed Orientation: alert [facility] Head: normal to inspection, normocephalic Ears: hearing grossly normal bilaterally, external ears normal Nose: external nose normal, nares normal Face and sinus: normal facial exam Neck Neck: normal visual inspection, no lymphadenopathy Thyroid: thyroid normal Chest Chest palpation & inspection: normal inspection of the chest Resp Effort & Inspection: normal respiratory effort Auscultation: clear to auscultation bilaterally Cardio Rate: regular rate Rhythm: regular rhythm Heart Sounds: S1 normal, S2 normal GI Inspection: normal to inspection, non-distended Palpation: soft, no hepatosplenomegaly Musc Other: gross motor intact no deficits, full bilateral strength Skin General: no rashes or lesions noted Neuro General: alert, awake, moves all extremities, no focal motor deficits Motor: muscle tone normal throughout Extrem General: normal to inspection, no pedal edema Psych Appearance: grossly normal Mental Status: mental status grossly normal Affect: normal affect Speech and Movement: speech and movement normal Assessment & Plan Problems 1. 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 discussed. plan LEEP questions answered. 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 Chen Carias MD
[2019-04-29] VITALS (7 sets, daily range): BP systolic 94–121; BP diastolic 61–89; PULSE 95–108; RESP 18–20; TEMP 36.2–36.9; O2SAT 95–98; BMI 31.7
--- NOTE | 2019-04-29 | CONE_PTH ---
PATIENT: GINGER AVILA LOC: [facility] [place] U#:[id number] AGE/SX: 38/F ROOM: RE04/29/[address]: Dr. Chen Carias MD : 1980 BED: DIS: 04/29/2019 SPEC #: [id number] RECD: 04/29/19 11:17 STATUS: UZMA EMMANUEL #: [id number] HOWARD: 04/29/19 00:[address]: Chen Carias DEPT: SURGICAL PATHOLOGY RECD BY: Victorino Garcia ENTERED: 04/29/19 11:33 SP TYPE: Leep Cone BOBBI DR: Dr. 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 Koilocytic atypia compatible with HPV cytopathic effect. Mild dysplasia focally involves the exocervical LEEP biopsy margin. All LEEP biopsy margins are free of high grade dysplasia. Chronic endocervicitis. CE:saúl 04/30/19 MICROSCOPIC DESCRIPTION Slides are reviewed. GROSS DESCRIPTION Received in fixative is one container labeled with the patient's name and designated cervix. The specimen consists of a LEEP cone biopsy of cervix. The specimen measures 3 x 1.5 x 0.9 cm. No orientation of the specimen is provided. The surgical margins are inked blue. The specimen is serially sectioned in a radial fashion and totally submitted in four cassettes. / FA:[email or web address] 04/29/19 TC:3 [facility]: [id number]
[2019-04-29 06:10] LABS: Internal QC Validated? YES +Cl - CLEAR BKGD; Pregnancy, Urine Negative Negative
[2019-04-29 06:10] LABS: Hematocrit 44.5 % (37-47); Hemoglobin 15.8 g/dl (12.0-15.0); Mean Corp Hgb Conc 35.5 g/gl (32-36); Mean Corpuscular Volume 78.8 fL (81-99); Mean Platelet Vol. 10.7 fl (6.2-12.0); Platelet Count 310 K/mm3 (150-450); RBC Distribution Width CV 13.8 % (11.6-14.6); RBC Distribution Width SD 39.5 fl (35.1-43.9); Red Blood Count 5.65 M/mm3 (4.2-5.4); White Blood Count 11.4 K/mm3 (4.4-11.0)
[2019-04-29 06:11] LABS: Scan Indicated on CBC? Y/N NO
[2019-04-29 06:41] LABS: Bedside Glucose 273 mg/dL (70-110)
--- NOTE | 2019-04-29 07:27 | PCM.OPRPT ---
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 Paracervical block was placed with 1% lidocaine and using a loop electrode the outer part of the cervix was removed including the squamocolumnar junction. Endocervical curettings were taken and the base of the cervix was cauterized around the borders and the base to obtain excellent hemostasis. Monsel's paste was placed and patient was awoken and taken recovery in stable condition. Grafts/Implants Used: none - Complications none
--- NOTE | 2019-04-29 07:28 | DCINST_ITS ---
Discharge Diet: No Restrictions Discharge Activity: Return to Normal Activity, May not drive while taking narcotic pain medications. May resume sexual activity in: 4 weeks - Nothing in the vagina for 4 weeks Call your doctor if you observe: Fever of 101 or Higher, Using more than one pad per hour Allergies/Adverse Reactions: Allergies clindamycin Allergy (Mild, Verified 04/22/19 14:42) hives morphine Adverse Reaction (Verified 04/22/19 14:42) Upset Stomach Medications to take at Discharge Lorazepam [Ativan] 0.5 mg PO DAILY PRN PRN 01/13/17 rosuvastatin 40 mg tablet 20 mg PO QDAY 05/15/18 pioglitazone 30 mg tablet 30 mg PO QHS #90 tab 10/21/18 insulin degludec (U-100) 100 unit/mL (3 mL) subcutaneous pen See Rx Instructions SC QHS #60 ml 12/14/18 duloxetine 60 mg capsule,delayed release 60 mg PO DAILY #90 cap 12/22/18 levothyroxine 75 mcg tablet 75 mcg PO QHS #90 tab 12/22/18 lisinopril 30 mg tablet 30 mg PO DAILY #90 tab 12/22/18 pantoprazole 40 mg tablet,delayed release 40 mg PO DAILY #90 tab 12/22/18 Glipizide 7.5 mg PO DAILY 12/24/18 medroxyprogesterone 150 mg/mL intramuscular suspension 150 mg IM .[id number] #1 ml 12/29/18 Primary Care Physician: Walter Becerra DO [Primary Care Provider] - Test Results: Test results from this visit will be discussed in further detail at your follow- up appointment, if applicable. Please Follow Up With: Chen Carias MD - [phone]
[2019-04-29] MEDS: FERRIC SUBSULFATE 8 GM SOLN (07:44)
[2019-04-29] MEDS: Ipratropium/Albuterol Sulfate 3 ML AMPUL.NEB INHALATION (08:07)
== END 2019-04-29 08:49 | disposition home or self-care (01) ==
LOC: SDC 05:44 → AC 05:45
PROVIDERS: Family Provider Family Medicine; PCP Family Medicine; Referring Provider Obstetrics & Gynecology; Visit Provider Obstetrics & Gynecology
PROC: 0UBC7ZZ Excision of Cervix, Via Natural or Artificial Opening (ICD-10-PCS; CPT 57522; principal; 2019-04-29 07:15)
DX: N87.1 Moderate cervical dysplasia (principal); N72 Inflammatory disease of cervix uteri; E03.9 Hypothyroidism, unspecified; I10 Essential (primary) hypertension; E78.5 Hyperlipidemia, unspecified; E11.9 Type 2 diabetes mellitus without complications; K21.9 Gastro-esophageal reflux disease without esophagitis; F41.9 Anxiety disorder, unspecified; F32.9 Major depressive disorder, single episode, unspecified; F17.200 Nicotine dependence, unspecified, uncomplicated; E66.9 Obesity, unspecified; Z68.31 Body mass index [BMI] 31.0-31.9, adult; Z79.4 Long term (current) use of insulin; Z79.899 Other long term (current) drug therapy
CPT/HCPCS: 00940; 57522; 81025; 82962; 85027; 88307; J7120; J2405

== ENCOUNTER → 2019-07-06 | Outpatient (CLI) | payer OTHER, SELFPAY ==
[2019-07-06 11:01] VITALS: BMI 31.7
== END | disposition home or self-care (01) ==
LOC: BIMLAB 11:29
PROVIDERS: Family Provider Family Medicine; PCP Family Medicine; Visit Provider Family Medicine
DX: M79.7 Fibromyalgia (principal)
CPT/HCPCS: 36415; 82306

== ENCOUNTER → 2019-12-14 15:34 | Outpatient (CLI) | payer OTHER, SELFPAY ==
[2019-12-14 09:01] VITALS: BMI 32.4
== END ==
PROVIDERS: PCP Family Medicine; Referring Provider Physician Assistant; Visit Provider Physician Assistant
DX: L02.91 Cutaneous abscess, unspecified (principal)
CPT/HCPCS: 87070; 87075; 87077; 87186; 87205

== ENCOUNTER → 2020-01-04 09:42 | Outpatient (CLI) | payer OTHER, SELFPAY ==
[2020-01-04 09:22] VITALS: BMI 32.4
[2020-01-04 12:31] LABS: ALB/GLOB Ratio 0.9 RATIO (0.9-2.4); AST(SGOT) 11 U/L (15-37); Alanine Aminotransfer ALT/SGPT 26 U/L (13-56); Albumin, Serum 3.3 g/dL (3.2-5.0); Alkaline Phosphatase 71 U/L (45-117); Anion Gap 5 (5-15); BUN 10 mg/dL (7-18); BUN/Creat Ratio 12.5 RATIO (10-20); Calcium,Total 9.6 mg/dL (8.5-10.1); Chloride 107 mmol/L (98-107); Cholesterol 152 mg/dL (200); EST Glomerular Filtration Rate 85 mL/min (>60); Est Glom Filt Rate - Afr Amer 103 mL/min (>60); Globulin 3.8 g/dL (2.2-4.2); Glucose 381 mg/dL (74-106); High Density Lipoprotein 31 mg/dL; Potassium 4.1 mmol/L (3.5-5.1); Protein, Total 7.1 g/dL (6.4-8.2); Sodium Level 139 mmol/L (136-145); Triglycerides 215 mg/dL; Very Low Density Lipoprotein 43 mg/dL (5-40)
[2020-01-04 12:37] LABS: Microalbumin,Random Urine 36.5 mg/L (NO RANGE EST.); Microalbumin:Creatinine Ratio 42.9 mg/g CRE (<30 mg/g CRE)
== END ==
PROVIDERS: PCP Family Medicine; Referring Provider Family Medicine; Visit Provider Family Medicine
DX: E11.9 Type 2 diabetes mellitus without complications (principal)
CPT/HCPCS: 36415; 80053; 80061; 82043; 82570

== ENCOUNTER → 2020-08-17 08:57 | Outpatient (CLI) | payer OTHER, SELFPAY ==
[2020-08-15 14:52] VITALS: BMI 33.3
== END ==
PROVIDERS: PCP Family Medicine; Visit Provider Physician Assistant
DX: L02.31 Cutaneous abscess of buttock (principal)
CPT/HCPCS: 87070; 87077; 87186; 87205

== ENCOUNTER → 2020-10-17 11:02 | Outpatient (CLI) | payer OTHER, SELFPAY ==
[2020-10-17 10:14] VITALS: BMI 34.2
[2020-10-17 12:37] LABS: Vitamin D,25 Hydroxy 24.8 ng/mL
== END ==
PROVIDERS: PCP Family Medicine; Referring Provider Family Medicine; Visit Provider Family Medicine
DX: M85.80 Other specified disorders of bone density and structure, unspecified site (principal)
CPT/HCPCS: 36415; 82306

== ENCOUNTER → 2020-11-21 15:41 | Outpatient (CLI) | payer OTHER, SELFPAY ==
[2020-11-20 16:16] VITALS: BMI 33.6
[2020-11-21 16:48] LABS: Vitamin D,25 Hydroxy 17.9 ng/mL
[2020-11-21 16:58] LABS: ALB/GLOB Ratio 0.8 RATIO (0.9-2.4); AST(SGOT) 15 U/L (15-37); Alanine Aminotransfer ALT/SGPT 29 U/L (13-56); Albumin, Serum 3.2 g/dL (3.2-5.0); Alkaline Phosphatase 90 U/L (45-117); Anion Gap 6 (5-15); BUN 19 mg/dL (7-18); BUN/Creat Ratio 19.3 RATIO (10-20); Calcium,Total 9.1 mg/dL (8.5-10.1); Chloride 100 mmol/L (98-107); Cholesterol 200 mg/dL (200); Creatinine, Serum 0.99 mg/dL (0.55-1.02); EST Glomerular Filtration Rate 67 mL/min (>60); Est Glom Filt Rate - Afr Amer 81 mL/min (>60); Globulin 4.2 g/dL (2.2-4.2); High Density Lipoprotein 35 mg/dL; Potassium 4.9 mmol/L (3.5-5.1); Protein, Total 7.4 g/dL (6.4-8.2); Sodium Level 132 mmol/L (136-145); T4 Free Direct 1.34 ng/dL (0.76-1.46); Thyroid Stim Hormone (TSH) 3.78 uIU/mL (0.358-3.74); Triglycerides 510 mg/dL
[2020-11-21 17:33] LABS: Glucose 472 mg/dL (74-106)
== END ==
PROVIDERS: PCP Family Medicine; Referring Provider Internal Medicine Endocrinology, Diabetes & Metabolism; Visit Provider Internal Medicine Endocrinology, Diabetes & Metabolism
DX: E03.9 Hypothyroidism, unspecified (principal); E11.9 Type 2 diabetes mellitus without complications; I10 Essential (primary) hypertension; E78.5 Hyperlipidemia, unspecified; E55.9 Vitamin D deficiency, unspecified
CPT/HCPCS: 36415; 80053; 80061; 82043; 82306; 82570; 84439; 84443

== ENCOUNTER → 2020-12-28 16:51 | Outpatient (CLI) | payer OTHER, SELFPAY ==
[2020-12-28 13:13] VITALS: BMI 34.7
[2021-01-03 21:01] LABS: HPV APTIMA, High Risk Negative (Negative)
== END ==
PROVIDERS: PCP Family Medicine; Referring Provider Nurse Practitioner Women's Health; Visit Provider Nurse Practitioner Women's Health
DX: Z12.4 Encounter for screening for malignant neoplasm of cervix (principal)
CPT/HCPCS: 87624; 88175; G0145

== ENCOUNTER → 2021-04-24 15:41 | Outpatient (CLI) | payer OTHER, SELFPAY ==
[2021-04-24 15:12] VITALS: BMI 34.2
[2021-04-24 16:54] LABS: Erythrocyte Sedimentation Rate 11 mm/hr (0-30)
[2021-04-24 18:19] LABS: CRP 5.28 mg/L (0.0-3.0)
[2021-04-26 14:09] LABS: Alkaline Phosphatase, Serum 75 IU/L (48-121); Bone Fraction 35 % (14-68); Liver Fraction 63 % (18-85)
[2021-04-26 14:28] LABS: Intestinal Fraction 1 % (0-18)
== END ==
PROVIDERS: PCP Family Medicine; Referring Provider Family Medicine; Visit Provider Family Medicine
DX: M65.341 Trigger finger, right ring finger (principal)
CPT/HCPCS: 36415; 84075; 84080; 85652; 86140

== ENCOUNTER → 2021-05-24 16:37 | Outpatient (CLI) | payer OTHER, SELFPAY ==
[2021-05-24 08:31] VITALS: BMI 34.9
== END ==
PROVIDERS: PCP Family Medicine; Visit Provider Physician Assistant
DX: L02.214 Cutaneous abscess of groin (principal)
CPT/HCPCS: 87070; 87075; 87077; 87186; 87205

== ENCOUNTER 2022-01-02 15:59 | Outpatient (CLI) | payer OTHER, SELFPAY ==
[2022-01-02 17:23] LABS: ALB/GLOB Ratio 0.8 RATIO (0.9-2.4); AST(SGOT) 11 U/L (15-37); Alanine Aminotransfer ALT/SGPT 29 U/L (13-56); Albumin, Serum 3.1 g/dL (3.2-5.0); Alkaline Phosphatase 66 U/L (45-117); Anion Gap 5 (5-15); BUN 17 mg/dL (7-18); BUN/Creat Ratio 19.4 RATIO (10-20); Calcium,Total 8.9 mg/dL (8.5-10.1); Chloride 104 mmol/L (98-107); Cholesterol 164 mg/dL (200); Creatinine, Serum 0.88 mg/dL (0.55-1.02); EST Glomerular Filtration Rate 76 mL/min (>60); Est Glom Filt Rate - Afr Amer 92 mL/min (>60); Glucose 300 mg/dL (74-106); High Density Lipoprotein 33 mg/dL; Protein, Total 7.1 g/dL (6.4-8.2); Sodium Level 137 mmol/L (136-145); T4 Free Direct 1.04 ng/dL (0.76-1.46); Thyroid Stim Hormone (TSH) 2.42 uIU/mL (0.358-3.74); Triglycerides 297 mg/dL; Very Low Density Lipoprotein 59 mg/dL (5-40)
== END 2022-01-02 23:59 | disposition home or self-care (01) ==
LOC: BIMLAB 15:59
PROVIDERS: Internal Medicine Endocrinology, Diabetes & Metabolism; PCP Family Medicine; Referring Provider Nurse Practitioner Family; Visit Provider Nurse Practitioner Family
DX: E78.5 Hyperlipidemia, unspecified (principal); E11.65 Type 2 diabetes mellitus with hyperglycemia; Z79.4 Long term (current) use of insulin; E03.9 Hypothyroidism, unspecified; I10 Essential (primary) hypertension
CPT/HCPCS: 36415; 80053; 80061; 82043; 82570; 84439; 84443

== ENCOUNTER → 2022-12-23 | Outpatient (CLI) | payer OTHER, SELFPAY ==
[2022-12-23 16:37] LABS: Vitamin D,25 Hydroxy 31.5 ng/mL
[2022-12-23 16:42] LABS: ALB/GLOB Ratio 0.8 RATIO (0.9-2.4); AST(SGOT) 16 U/L (15-37); Alanine Aminotransfer ALT/SGPT 30 U/L (13-56); Albumin, Serum 3.1 g/dL (3.2-5.0); Alkaline Phosphatase 62 U/L (45-117); Anion Gap 5 (5-15); BUN 16 mg/dL (7-18); BUN/Creat Ratio 18.4 RATIO (10-20); Calcium,Total 9.6 mg/dL (8.5-10.1); Chloride 109 mmol/L (98-107); Cholesterol 158 mg/dL (200); Creatinine, Serum 0.87 mg/dL (0.55-1.02); EST Glomerular Filtration Rate 77 mL/min (>60); Est Glom Filt Rate - Afr Amer 93 mL/min (>60); Glucose 123 mg/dL (74-106); High Density Lipoprotein 37 mg/dL; Potassium 3.8 mmol/L (3.5-5.1); Protein, Total 7.1 g/dL (6.4-8.2); Sodium Level 141 mmol/L (136-145); T4 Free Direct 1.02 ng/dL (0.76-1.46); Thyroid Stim Hormone (TSH) 2.04 uIU/mL (0.358-3.74); Triglycerides 343 mg/dL; Very Low Density Lipoprotein 69 mg/dL (5-40)
== END | disposition home or self-care (01) ==
LOC: BIMLAB 15:13
PROVIDERS: PCP Family Medicine; Referring Provider Nurse Practitioner Family; Visit Provider Nurse Practitioner Family
DX: E11.9 Type 2 diabetes mellitus without complications (principal); E03.9 Hypothyroidism, unspecified
CPT/HCPCS: 36415; 80053; 80061; 82043; 82306; 82570; 84439; 84443

== ENCOUNTER → 2023-04-04 | Outpatient (CLI) | payer OTHER, SELFPAY ==
[2023-04-04 16:47] LABS: Hemoglobin A1c 7.2 % (3.8-5.6)
== END | disposition home or self-care (01) ==
LOC: BIMLAB 13:46
PROVIDERS: PCP Family Medicine; Visit Provider Nurse Practitioner Family
DX: E11.65 Type 2 diabetes mellitus with hyperglycemia (principal)
CPT/HCPCS: 36415; 83036

== ENCOUNTER → 2023-04-28 | Outpatient (CLI) | payer OTHER, SELFPAY ==
--- NOTE | 2023-04-28 14:06 | BI_ITS ---
MAMMOGRAPHY - BILATERAL SCREENING REASON FOR EXAM: Female, 42 years old. Routine annual screening examination. PERTINENT HISTORY: Non-contributory. TECHNIQUE: Digital bilateral breast balaji (3D mammographic acquisition) in the CC and MLO projections. 2-D mediolateral oblique (MLO) and craniocaudad (CC) views of both breasts were obtained. CAD: Full Field Digital Mammography with Computer Added Detection was performed. COMPARISON: None. Baseline examination. FINDINGS: Breast Composition: There are scattered areas of fibroglandular density. There are no dominant masses or suspicious calcifications. No other significant abnormalities are identified. BI/SCRN MAMM (CAD)W/BALAJI BILAT IMPRESSION: Negative screening mammogram. Yearly followup mammogram recommended. (A) ASSESSMENT CATEGORY: BIRADS Category 1: Negative. A letter regarding these results will be sent to the patient by the facility within 30 days. Approximately 10% of breast cancers are not detected by mammography. A normal mammogram should not delay biopsy of a clinically suspicious abnormality. [id number] Electronically Signed: Lavon Johnson MD at 15:08 EDT ,
== END | disposition home or self-care (01) ==
LOC: OPBI 14:05
PROVIDERS: PCP Family Medicine; Referring Provider Family Medicine; Visit Provider Family Medicine
DX: Z12.31 Encounter for screening mammogram for malignant neoplasm of breast (principal)
CPT/HCPCS: 77063; 77067

== ENCOUNTER → 2023-10-20 | Outpatient (CLI) | payer OTHER, SELFPAY ==
[2023-10-20 15:19] LABS: Absolute Lymphocyte Count 3.66 X10^3/uL (0.83-4.51); Absolute Neutrophil Count 9.5 X10^3/uL (2.0-7.7); Basophil# 0.07 X10^3/uL; Basophil% 0.5 % (0-1); Eosinophil# 0.13 X10^3/uL; Eosinophils% 0.9 % (0-5); Hematocrit 47.1 % (37-47); Hemoglobin 14.8 g/dL (12.0-15.0); Lymphocyte # 3.66 X10^3/ul (0.83-4.51); Lymphocyte % 25.4 % (19-41); Mean Corp Hgb Conc 31.4 g/dL (32-36); Mean Corpuscular Hgb 27.5 pg (27.0-32.0); Mean Corpuscular Volume 87.5 fL (81-99); Mean Platelet Vol. 10.7 fl (6.2-12.0); Monocyte# 0.95 X10^3/uL; Monocyte% 6.6 % (0-10); NRBC Flagged by Analyzer 0 % (0-5); Platelet Count 416 K/mm3 (150-450); RBC Distribution Width CV 14.2 % (11.6-14.6); RBC Distribution Width SD 45.1 fl (35.1-43.9); Red Blood Count 5.38 M/mm3 (4.2-5.4); White Blood Count 14.4 K/mm3 (4.4-11.0)
[2023-10-20 16:26] LABS: ALB/GLOB Ratio 0.9 RATIO (0.9-2.4); AST(SGOT) 18 U/L (15-37); Alanine Aminotransfer ALT/SGPT 29 U/L (13-56); Albumin, Serum 3.5 g/dL (3.2-5.0); Alkaline Phosphatase 57 U/L (45-117); Anion Gap 4 (5-15); BUN 18 mg/dL (7-18); BUN/Creat Ratio 18.1 RATIO (10-20); Calcium,Total 9.4 mg/dL (8.5-10.1); Chloride 110 mmol/L (98-107); Cholesterol 156 mg/dL (200); Creatinine, Serum 0.99 mg/dL (0.55-1.02); EST Glomerular Filtration Rate 65 mL/min (>60); Est Glom Filt Rate - Afr Amer 79 mL/min (>60); Ferritin 183 ng/mL (8-252); Globulin 4.1 g/dL (2.2-4.2); Glucose 91 mg/dL (74-106); High Density Lipoprotein 38 mg/dL; Potassium 4.7 mmol/L (3.5-5.1); Protein, Total 7.6 g/dL (6.4-8.2); Sodium Level 141 mmol/L (136-145); Thyroid Stim Hormone (TSH) 1.62 uIU/mL (0.358-3.74); Triglycerides 216 mg/dL; Very Low Density Lipoprotein 43 mg/dL (5-40)
[2023-10-20 17:05] LABS: Microalbumin:Creatinine Ratio 1017.3 mg/g CRE (<30 mg/g CRE)
== END | disposition home or self-care (01) ==
LOC: BIMLAB 14:09
PROVIDERS: PCP Family Medicine; Visit Provider Nurse Practitioner Family
DX: E03.9 Hypothyroidism, unspecified (principal); E11.9 Type 2 diabetes mellitus without complications; R53.83 Other fatigue; R80.9 Proteinuria, unspecified
CPT/HCPCS: 36415; 80053; 80061; 82043; 82570; 82728; 84439; 84443; 85025

== ENCOUNTER → 2024-05-03 | Outpatient (CLI) | payer OTHER, SELFPAY ==
--- NOTE | 2024-05-03 14:03 | BI_ITS ---
MAMMOGRAPHY - BILATERAL SCREENING 3-D TOMOSYNTHESIS REASON FOR EXAM: Female, 43 years old. screening PERTINENT HISTORY: No significant family history. TECHNIQUE: 2-D mammograms and 3-D Tomosynthesis of the breast (s) were performed. CAD was performed. COMPARISON: 04/28/2023 FINDINGS: The breast composition is composed of scattered fibroglandular density. Scattered benign calcifications are seen. No dense spiculated masses or suspicious microcalcifications are identified. No architectural distortion is identified. There is no skin thickening or retraction. There has been no significant change since the prior study. BI/SCRN MAMM (CAD)W/BALAJI BILAT IMPRESSION: No mammographic signs of malignancy. Routine yearly mammograms recommended. ASSESSMENT CATEGORY: BIRADS Category 1: Negative. A letter regarding these results will be sent to the patient by the facility within 30 days. FOLLOW UP RECOMMENDATION: Yearly follow up mammogram recommended. (A) Approximately 10% of breast cancers are not detected by mammography. A normal mammogram should not delay biopsy of a clinically suspicious abnormality. Electronically Signed: Jovan Fraser MD at 16:24 EDT ,
== END | disposition home or self-care (01) ==
LOC: OPBI 14:03
PROVIDERS: PCP Family Medicine; Referring Provider Family Medicine; Visit Provider Family Medicine
DX: Z12.31 Encounter for screening mammogram for malignant neoplasm of breast (principal)
CPT/HCPCS: 77063; 77067

== ENCOUNTER → 2024-10-25 | Outpatient (CLI) | payer OTHER, SELFPAY ==
[2024-10-25 15:37] LABS: Vitamin D,25 Hydroxy 55.9 ng/mL
[2024-10-25 15:41] LABS: ALB/GLOB Ratio 0.9 RATIO (0.9-2.4); AST(SGOT) 16 U/L (15-37); Alanine Aminotransfer ALT/SGPT 25 U/L (13-56); Albumin, Serum 3.6 g/dL (3.2-5.0); Alkaline Phosphatase 60 U/L (45-117); Anion Gap 5 (5-15); BUN 36 mg/dL (7-18); BUN/Creat Ratio 24.7 RATIO (10-20); Calcium,Total 9.6 mg/dL (8.5-10.1); Chloride 108 mmol/L (98-107); Cholesterol 158 mg/dL (200); Creatinine, Serum 1.46 mg/dL (0.55-1.02); EST Glomerular Filtration Rate 42 mL/min (>60); Est Glom Filt Rate - Afr Amer 51 mL/min (>60); Globulin 4.2 g/dL (2.2-4.2); Glucose 106 mg/dL (74-106); High Density Lipoprotein 42 mg/dL; Potassium 4.5 mmol/L (3.5-5.1); Protein, Total 7.8 g/dL (6.4-8.2); Sodium Level 138 mmol/L (136-145); T4 Free Direct 1.22 ng/dL (0.76-1.46); Triglycerides 169 mg/dL; Very Low Density Lipoprotein 34 mg/dL (5-40)
[2024-10-25 15:52] LABS: Microalbumin:Creatinine Ratio 115.4 mg/g CRE (<30 mg/g CRE)
== END | disposition home or self-care (01) ==
LOC: BIMLAB 12:10
PROVIDERS: PCP Family Medicine; Referring Provider Nurse Practitioner Family; Visit Provider Nurse Practitioner Family
DX: E11.65 Type 2 diabetes mellitus with hyperglycemia (principal); Z79.4 Long term (current) use of insulin; E03.9 Hypothyroidism, unspecified
CPT/HCPCS: 36415; 80053; 80061; 82043; 82306; 82570; 84439; 84443

== ENCOUNTER → 2024-12-23 | Outpatient (CLI) | payer OTHER, SELFPAY | END | disposition home or self-care (01) | PROVIDERS: PCP Family Medicine; Referring Provider Internal Medicine Critical Care Medicine; Visit Provider Internal Medicine Critical Care Medicine | DX: G47.10 Hypersomnia, unspecified (principal) | CPT/HCPCS: 95806 ==

== ENCOUNTER → 2025-01-03 | Outpatient (CLI) | payer OTHER, SELFPAY | END | disposition home or self-care (01) | LOC: SL 14:19 | PROVIDERS: PCP Family Medicine; Visit Provider Internal Medicine Critical Care Medicine | DX: Z00.00 Encounter for general adult medical examination without abnormal findings (principal) ==

== ENCOUNTER → 2025-04-11 | Outpatient (CLI) | payer OTHER, SELFPAY ==
[2025-04-11 15:58] LABS: Anion Gap 13 (5-15); BUN 20 mg/dL (4-19); BUN/Creat Ratio 17.4 RATIO (10-20); Calcium,Total 10.2 mg/dL (7.6-11.0); Carbon Dioxide 24.4 mmol/L (21.0-32.0); Chloride 103 mmol/L (98-108); Creatinine, Serum 1.16 mg/dL (0.70-1.20); EST Glomerular Filtration Rate 60 (>60); Glucose 140 mg/dL (70-99); Sodium Level 140 mmol/L (133-145)
== END | disposition home or self-care (01) ==
LOC: BIMLAB 13:58
PROVIDERS: PCP Family Medicine; Referring Provider Family Medicine; Visit Provider Family Medicine
DX: I10 Essential (primary) hypertension (principal); E13.319 Other specified diabetes mellitus with unspecified diabetic retinopathy without macular edema
CPT/HCPCS: 36415; 80048; 84443

== ENCOUNTER → 2025-05-16 | Outpatient (CLI) | payer OTHER, SELFPAY ==
--- NOTE | 2025-05-16 14:30 | BI_ITS ---
EXAM: SCRN MAMM (CAD)W/BALAJI BILAT DATE: 05/16/2025 CLINICAL HISTORY: F, Age 44 y/o , SCREENING No family history. TECHNIQUE: SCRN MAMM (CAD)W/BALAJI BILAT COMPARISON: Prior exam(s) dated May 03, 2024.. FINDINGS: TISSUE DENSITY: There are scattered areas of fibroglandular density. Bilateral Breast Mammographic Findings: No significant masses, calcifications or other abnormalities are identified. No suspicious masses, areas of developing architectural distortion, or suspicious calcifications. There has been no significant interval change. BI/SCRN MAMM (CAD)W/BALAJI BILAT IMPRESSION: Stable examination. OVERALL FINAL ASSESSMENT BI-RADS 1: NEGATIVE. RECOMMENDATION: Routine annual follow-up in 1 Year A letter with findings and recommendations will be mailed to the patient. Reading Location: [place] [id number]
--- OUTSIDE RECORDS SUMMARY | 2025-05-16 22:36 | XMS RPT_ITS | CCD ---
Author Organization [facility] Care Team Providers Care Marketing Communications Leader Name Role Phone Oleksandr Fields MD Unavailable Dr. Rosalinda Becerra Primary Care Provider Dr. Rosalinda Becerra Referring Provider [phone] OSCAR Cr Attending Provider Dr. Brendan Finley Attending Provider Dr. Rosalinda Becerra Primary Care Provider [phone] Dr. Rosalinda Becerra Referring Provider OSCAR Cr Attending Provider Dr. Rosalinda Becerra Primary Care Provider [phone] Dr. Rosalinda Becerra Referring Provider OSCAR Cr Attending Provider Dr. Rosalinda Becerra Attending Provider ROSALINDA BECERRA DO Primary Care Physician KAREEN JOAQUIN MD Attending Unavailable ROSALINDA BECERRA DO Primary Care Unavailable Dr. Rosalinda Becerra Primary Care Provider [phone] Dr. Rosalinda Becerra Referring Provider OSCAR Cr Attending Provider Unavailable Primary Care Provider UnavailTAMIKA Diop Attending Unavailable ROSALINDA BECERRA Referring Unavailable Dr. Rosalinda Becerra DO Primary Care Provider Dr. Rosalinda Becerra DO Attending Provider [phone] Dr. Rosalinda Becerra DO Referring Provider [phone] Misa Walton Attending Provider [phone] Tayo SENIOR ASP NET DEVELOPER-C, Misa Referring Provider [phone] Mati JAIMES, Dr. Cam Attending Provider Dr. Tamika Bradley MD Referring Provider [phone] Hernan MAN, Dr. Rosalinda Brody Primary Care Provider Hernan MAN, Dr. Rosalinda Brody Attending Provider [phone] Hernan MAN, Dr. Rosalinda Brody Referring Provider [phone] Hernan MAN, Dr. Rosalinda Brody Primary Care Provider Mati JAIMES, Dr. Cam Attending Provider [phone] Tayo SENIOR ASP NET DEVELOPER-C, Misa Attending Provider [phone] Brown, Rosalinda R Primary Care Unavailable Magalang, Tamika Attending Unavailable Magalang, [place] Referring Unavailable Brown, Rosalinda R Attending Unavailable Brown, Rosalinda R Referring Unavailable Brown, Rosalinda R Primary Care Unavailable Ann Mckeon Attending Unavailable Brown, Rosalinda R Referring Unavailable Brown, Rosalinda R Primary Care Unavailable Brown, Rosalinda R Referring Unavailable Brown, Rosalinda R Primary Care Unavailable Misa Cr Attending Unavailable Brown, Rosalinda R Attending Unavailable Brown, Rosalinda R Referring Unavailable Brown, Rosalinda R Primary Care Unavailable Brown, Rosalinda R Referring Unavailable Brown, Rosalinda R Attending Unavailable Brown, Rosalinda R Primary Care Unavailable Tayo, Misa Referring Unavailable Brown, Rosalinda R Primary Care Unavailable Misa Cr Attending Unavailable Brown, Rosalinda R Referring Unavailable Brown, Rosalinda R Primary Care Unavailable TayoMisa Attending Unavailable Brown, Rosalinda R Primary Care Unavailable Magalang, Tamika Attending Unavailable Magalang, Tamika Referring Unavailable Brown, Rosalinda R Primary Care Unavailable Magalang, [place] Attending Unavailable Brown, Rosalinda R Referring Unavailable Brown, Rosalinda R Attending Unavailable Brown, Rosalinda R Primary Care Unavailable Allergies Allergy Classification Reported Allergen(s) Allergy Type Date of Onset Reaction(s) Facility (10 sources) Clindamycin; Translations: [clindamycin] Drug Allergy 3 [facility] Comment on above: HIVES (10 sources) Morphine; Translations: [morphine] Drug Allergy 3 Diarrhea, Nausea and Vomiting [facility] Comment on above: N/V (1 source) Clindamycin Drug Allergy 5 [facility] Repository (1 source) Morphine Drug Allergy 5 [facility] Repository Medications Current Medications Medication Drug Class(es) Dates Sig (Normalized) Sig (Original) acetaminophen 325 mg oral tablet (1 source) Start: 02-10-2017 Tylenol 325 mg oral tablet Dose : 650 mg = 2 tab(s), Oral, q4hr, PRN for pain, 0 Refill(s) Start Date: 02/10/17 Status: Ordered beet root (1 source) Start: 04-25-2025 beet root Active PO April 25, 2025 12:00am Blood-Glucose Sensor (Freestyle Feliberto 2 Plus Sensor) device (1 source) Start: 04-25-2025 Blood-Glucose Sensor (Freestyle Feliberto 2 Plus Sensor) device Active 0 .Route 2 April 25, 2025 12:00am 1 sensor q 15 days ibuprofen 200 mg oral tablet (1 source) Nonsteroidal Anti-inflammatory Drug Start: 02-10-2017 ibuprofen 200 mg oral tablet Dose : 400 mg = 2 tab(s), Oral, q4h, PRN for pain, 0 Refill(s) Start Date: 02/10/17 Status: Ordered Lantus (1 source) Insulin Analog Start: 02-10-2017 Lantus Dose : 54 unit(s) =, Subcutaneous, 0 Refill(s) Start Date: 02/10/17 Status: Ordered Insulin NPH Isophane & Regular (HUMULIN 70/30 KWIKPEN SC) (1 source) Insulin NPH Isophane & Regular (HUMULIN 70/30 KWIKPEN SC) Active melatonin 5 mg oral tablet (9 sources) Start: 03-27-2022 take 1 tablet by mouth at bedtime as needed Melatonin 5 mg tablet Active 5 mg PO BEDTIME as needed March 27, 2022 12:00am Melatonin 10 MG capsule Active pravastatin sodium 80 mg oral tablet (1 source) HMG-CoA Reductase Inhibitor Start: 02-10-2017 pravastatin 80 mg or al tablet Dose : 80 mg = 1 tab(s), Oral, qDay, # 30 tab(s), 0 Refill(s) Start Date: 02/10/17 Status: Ordered Semaglutide (Ozempic) 2 mg/dose (8 mg/3 mL) pen injector (20 sources) Start: 12-13-2024 Semaglutide (O zempic) 2 mg/dose (8 mg/3 mL) pen injector Active 2 mg SC EVERY WEEK December 13, 2024 2:07pm Start: 06-09-2024 End: 12-13-2024 Semaglutide (Ozempic) 2 mg/d ose (8 mg/3 mL) pen injector Discontinued 2 mg SC EVERY WEEK June 09, 2024 8:08am December 13, 2024 2:07pm Start: 12-03-2023 End: 06-09-2024 Semaglutide (Ozempic) 2 mg/d ose (8 mg/3 mL) pen injector Discontinued 2 mg SC EVERY WEEK December 03, 2023 10:38am June 09, 2024 8:09am Start: 04-15-2023 End: 12-03-2023 Semaglutide (Ozempic) 2 mg/d ose (8 mg/3 mL) pen injector Discontinued 2 mg SC EVERY WEEK April 15, 2023 12:00am December 03, 2023 10:38am Start: 04-15-2023 Semaglutide (O zempic) 2 mg/dose (8 mg/3 mL) pen injector Active 2 MG SC EVERY WEEK April 14, 2023 11:00pm Start: 04-15-2023 Semaglutide (O zempic) 2 mg/dose (8 mg/3 mL) pen injector Active 2 MG SC EVERY WEEK April 15, 2023 12:00am Start: 06-27-2022 End: 04-09-2023 Semaglutide (Ozempic) 2 mg/d ose (8 mg/3 mL) pen injector Discontinued 2 mg SC EVERY WEEK June 27, 2022 12:00am April 09, 2023 8:25am Start: 06-27-2022 End: 04-09-2023 Semaglutide (Ozempic) 2 mg/d ose (8 mg/3 mL) pen injector Discontinued 2 MG SC EVERY WEEK June 26, 2022 11:00pm April 09, 2023 7:25am Start: 06-27-2022 End: 04-09-2023 Semaglutide (Ozempic) 2 mg/d ose (8 mg/3 mL) pen injector Discontinued 2 MG SC EVERY WEEK June 27, 2022 12:00am April 09, 2023 8:25am Start: 06-27-2022 Semaglutide (O zempic) 2 mg/dose (8 mg/3 mL) pen injector Active 2 MG SC EVERY WEEK June 26, 2022 11:00pm Semaglutide, 2 MG/DOSE, 8 MG /3ML Solution Pen-injector (1 source) Semaglutide, 2 M G/DOSE, 8 MG/3ML Solution Pen-injector Active Completed/Discontinued Medications Medication Drug Class(es) Dates Sig (Normalized) Sig (Original) acetaminophen 325 mg / oxyCODONE hydrochloride 5 mg oral tablet (8 sources) Opioid Agonist Start: 08-20-2017 End: 12-10-2017 Oxycodone-Acetamino phen 1 TABLET tablet Discontinued 1 - 2 {tbl} PO EVERY 6 HOURS NEEDED as needed for Pain August 20, 2017 12:00am December 10, 2017 9:53am Start: 08-20-2017 End: 12-10-2017 take 1 tablet by mouth every six hours as needed Oxycodone-Acetaminophen Discontinued 1 - 2 TABLET PO EVERY 6 HOURS NEEDED August 19, 2017 11:00pm December 10, 2017 8:53am amLODIPine 5 mg oral tablet (20 sources) Dihydropyridine Calcium Channel Magi Start: 04-23-2023 End: 12-09-2024 take 1 tablet by mouth once daily Amlodipine 5 mg tablet Discontinued 5 mg PO DAILY June 13, 2024 1:55pm December 09, 2024 5:37pm Start: 12-23-2022 End: 04-23-2023 take 1 tablet by mouth once daily Amlodipine 10 mg tablet Discontinued 10 mg PO DAILY December 23, 2022 3:56pm April 23, 2023 5:01pm cephalexin 500 mg oral tablet (8 sources) Cephalosporin Antibacterial Start: 12-28-2020 End: 01-04-2021 take 1 tablet by mouth twice daily Cephalexin 500 mg tablet Discontinued 500 mg PO TWICE A DAY 16 05December 28, 2020 1:00am January 03, 2021 1:00am January 04, 2021 1:02am cholecalciferol 0.125 mg oral capsule (20 sources) Vitamin D Start: 07-07-2019 End: 10-12-2024 take 1 capsule by mouth once daily Cholecalciferol (Vitamin D3) 125 mcg (5,000 unit) capsule Discontinued 5000 U PO DAILY September 30, 2023 1:45pm October 12, 2024 1:43pm Start: 07-06-2019 End: 10-05-2019 take 1 tablet by mouth once daily Cholecalciferol (Vitamin D3) 1,000 unit tablet,chewable Discontinued 1000 U PO DAILY July 06, 2019 12:00am October 05, 2019 11:31am cholecalciferol 125 MCG (5000 UT) tablet Active crisaborole 0.02 mg/mg topic al ointment (16 sources) Start: 10-17-2020 End: 04-23-2023 Crisaborole (Eucrisa) 2 % ointment Discontinued 1 NMA TOPICAL TWICE A DAY as needed May 14, 2021 11:07am April 23, 2023 4:37pm digestive enzeymes (8 sources) Start: 01-02-2022 End: 06-27-2022 digestive enzeymes Discontin ued PO January 02, 2022 1:00am June 27, 2022 1:49pm Start: 01-02-2022 End: 06-27-2022 digestive enzeymes Discontin ued PO January 02, 2022 12:00am June 27, 2022 12:49pm doxycycline monohydrate 100 mg oral capsule (20 sources) Tetracycline-class Drug Start: 06-22-2024 End: 06-29-2024 take 1 capsule by mouth twice daily Doxycycline Monohydrate 100 mg capsule Discontinued 100 mg PO TWICE A DAY 14 June 22, 2024 12:00am June 28, 2024 12:00am June 29, 2024 12:03am Start: 05-24-2021 End: 06-03-2021 take 1 capsule by mouth twice daily Doxycycline Monohydrate 100 mg capsule Discontinued 100 mg PO TWICE A DAY 20 May 24, 2021 12:00am June 02, 2021 12:00am June 03, 2021 12:01am Start: 11-09-2020 End: 12-11-2020 take 1 capsule by mouth twice daily Doxycycline Monohydrate 100 mg capsule Discontinued 100 mg PO TWICE A DAY November 09, 2020 1:00am December 11, 2020 3:11pm Start: 08-17-2020 End: 08-27-2020 take 1 capsule by mouth twice daily Doxycycline Monohydrate 100 mg capsule Discontinued 100 mg PO TWICE A DAY 22 08August 17, 2020 12:00am August 26, 2020 12:00am August 27, 2020 12:02am Start: 12-14-2019 End: 12-24-2019 take 1 capsule by mouth twice daily Doxycycline Hyclate 100 mg capsule Discontinued 100 mg PO TWICE A DAY 22 08December 14, 2019 1:00am December 23, 2019 1:00am December 24, 2019 1:09am Start: 03-18-2019 End: 03-28-2019 take 1 tablet by mouth twice daily Doxycycline Hyclate 100 mg tablet Discontinued 100 mg PO TWICE A DAY 22 08March 18, 2019 12:00am March 27, 2019 12:00am March 28, 2019 12:07am Start: 12-10-2017 End: 07-21-2018 take 1 capsule by mouth twice daily Doxycycline Hyclate 100 mg capsule Discontinued 100 mg PO TWICE A DAY May 07, 2018 12:00am July 21, 2018 10:20am Start: 08-20-2017 End: 12-10-2017 take 1 capsule by mouth twice daily Doxycycline Monohydrate 100 MG capsule Discontinued 100 mg PO TWICE A DAY August 20, 2017 12:00am December 10, 2017 9:52am DULoxetine 60 mg delayed release oral capsule (20 sources) Serotonin and Norepinephrine Reuptake Inhibitor Start: 09-23-2022 End: 10-12-2024 take 1 capsule by mouth once daily Duloxetine 60 mg capsule,delayed release(DR/EC) Discontinued 60 mg PO DAILY April 15, 2024 12:57pm October 12, 2024 1:43pm Start: 12-22-2018 End: 06-27-2022 take 1 capsule by mouth once daily at bedtime Duloxetine 60 mg capsule,delayed release(DR/EC) Discontinued 60 mg PO DAILY June 19, 2022 10:03am June 27, 2022 2:16pm Take at bedtime Start: 09-29-2018 End: 12-22-2018 take 1 capsule by mouth once daily at bedtime Duloxetine 30 mg capsule,delayed release(DR/EC) Discontinued 30 mg PO DAILY September 29, 2018 1:00am December 22, 2018 11:03am Take at bedtime 0.85 ml exenatide 2.35 mg/ml auto-injector (16 sources) GLP-1 Receptor Agonist Start: 10-05-2019 End: 08-01-2020 Exenatide Microspheres (Bydureon Bcise) 2 mg/0.85 mL auto-injector Discontinued 2 mg SC Q7D 3.4 April 18, 2020 9:34am August 01, 2020 8:11am Flash Glucose Sensor (Freestyle Feliberto 14 Day Sensor) kit (20 sources) Start: 01-02-2024 End: 07-16-2024 Flash Glucose Sensor (Freestyle Feliberto 14 Day Sensor) kit Discontinued 0 .ROUTE .MEDSUPPLY 2 January 02, 2024 1:44pm July 16, 2024 9:22am As directed Start: 06-16-2023 End: 01-02-2024 Flash Glucose Sensor (Freest yle Feliberto 14 Day Sensor) kit Discontinued 0 .ROUTE .MEDSUPPLY June 16, 2023 7:52am January 02, 2024 1:44pm As directed Start: 06-16-2023 Flash Glucose Sensor (Freestyle Feliberto 14 Day Sensor) kit Active 0 .ROUTE .MEDSUPPLY 2 June 16, 2023 6:52am As directed Start: 11-11-2022 End: 06-16-2023 Flash Glucose Sensor (Freest yle Feliberto 14 Day Sensor) kit Discontinued 0 .ROUTE .MEDSUPPLY 2 November 11, 2022 5:40pm June 16, 2023 7:52am As directed Start: 11-11-2022 End: 06-16-2023 Flash Glucose Sensor (Freest yle Feliberto 14 Day Sensor) kit Discontinued 0 .ROUTE .MEDSUPPLY 2 November 11, 2022 4:40pm June 16, 2023 6:52am As directed Start: 11-11-2022 Flash Glucose Sensor (Freestyle Feliberto 14 Day Sensor) kit Active 0 .ROUTE .MEDSUPPLY 2 November 11, 2022 5:40pm As directed Start: 11-11-2022 Flash Glucose Sensor (Freestyle Feliberto 14 Day Sensor) kit Active 0 .ROUTE .MEDSUPPLY 2 November 11, 2022 4:40pm As directed Start: 03-27-2022 End: 11-11-2022 Flash Glucose Sensor (Freest yle Feliberto 14 Day Sensor) kit Discontinued 0 .ROUTE .MEDSUPPLY 2 March 27, 2022 9:30am November 11, 2022 5:41pm As directed Start: 03-27-2022 End: 11-11-2022 Flash Glucose Sensor (Freest yle Feliberto 14 Day Sensor) kit Discontinued 0 .ROUTE .MEDSUPPLY 2 March 27, 2022 8:30am November 11, 2022 4:41pm As directed Start: 07-02-2021 End: 03-27-2022 Flash Glucose Sensor (Freest yle Feliberto 14 Day Sensor) kit Discontinued 0 .ROUTE .MEDSUPPLY 2 July 02, 2021 10:14am March 27, 2022 9:30am As directed Start: 07-02-2021 End: 03-27-2022 Flash Glucose Sensor (Freest yle Feliberto 14 Day Sensor) kit Discontinued 0 .ROUTE .MEDSUPPLY 2 July 02, 2021 9:14am March 27, 2022 8:30am As directed Start: 06-20-2020 End: 07-02-2021 Flash Glucose Sensor (Freest yle Feliberto 14 Day Sensor) kit Discontinued 0 .ROUTE .MEDSUPPLY 2 June 20, 2020 12:00am July 02, 2021 10:15am As directed Start: 06-20-2020 End: 07-02-2021 Flash Glucose Sensor (Freest yle Feliberto 14 Day Sensor) kit Discontinued 0 .ROUTE .MEDSUPPLY 2 June 19, 2020 11:00pm July 02, 2021 9:15am As directed Flash Glucose Sensor (Freest yle Feliberto 2 Sensor) kit (8 sources) Start: 01-05-2025 End: 04-25-2025 Flash Glucose Sensor (Freest yle Feliberto 2 Sensor) kit Discontinued 0 .Route 2 January 05, 2025 2:19pm April 25, 2025 1:43pm 1 sensor q 14 days Start: 01-05-2025 Flash Glucose Sensor (Freestyle Feliberto 2 Sensor) kit Active 0 .Route 2 January 05, 2025 2:19pm 1 sensor q 14 days Start: 07-16-2024 End: 01-05-2025 Flash Glucose Sensor (Freest yle Feliberto 2 Sensor) kit Discontinued 0 .Route 2 July 16, 2024 12:00am January 05, 2025 2:19pm 1 sensor q 14 days fluconazole 150 mg oral tablet (8 sources) Azole Antifungal Start: 12-29-2018 End: 12-30-2018 Fluconazole 150 mg tablet Discontinued 150 mg PO Every 3 Days 2 0 December 29, 2018 1:00am December 29, 2018 1:00am December 30, 2018 1:07am 1 pill today and repeat 3 days glipiZIDE 5 mg oral tablet (20 sources) Sulfonylurea Start: 12-24-2018 End: 08-01-2020 Glipizide Discontinued 7.5 MG PO DAILY December 24, 2018 12:30am August 01, 2020 7:11am Take one twice daily. Start: 12-14-2018 End: 08-01-2020 take 1 tablet by mouth twice daily Glipizide 5 MG tablet Discontinued 7.5 mg PO DAILY December 24, 2018 1:30am August 01, 2020 8:11am Take one twice daily. Start: 07-29-2018 End: 12-14-2018 take 1 tablet by mouth once daily Glipizide 5 mg tablet Discontinued 5 mg PO DAILY July 29, 2018 12:00am December 14, 2018 11:38am hydroCHLOROthiazide 12.5 mg oral tablet (16 sources) Thiazide Diuretic Start: 02-02-2024 End: 01-28-2025 take 1 tablet by mouth once daily Hydrochlorothiazide 12.5 mg tablet Discontinued 12.5 mg PO DAILY April 16, 2024 8:04am January 28, 2025 3:02pm 3 ml insulin aspart, human 100 unt/ml pen injector (8 sources) Insulin Analog Start: 06-20-2020 End: 11-20-2020 Insulin Aspart U-100 (Novolog Flexpen U-100 Insulin) 100 unit/mL (3 mL) insulin pen Discontinued 25 U SC THREE TIMES A DAY 60 June 20, 2020 12:00am November 20, 2020 5:23pm 3 ml insulin degludec 200 unt/ml pen injector (20 sources) Insulin Analog Start: 01-16-2021 End: 07-02-2021 Insulin Degludec (Tresiba Flextouch U-200) 200 unit/mL (3 mL) insulin pen Discontinued 80 U SC DAILY 36 January 16, 2021 12:00am July 02, 2021 10:13am Start: 11-20-2020 End: 01-16-2021 Insulin Degludec (Tresiba Fl extouch U-100) 100 unit/mL (3 mL) insulin pen Discontinued 50 U SC AT BEDTIME 45 November 20, 2020 5:23pm January 16, 2021 3:10pm Start: 10-17-2020 End: 11-20-2020 Insulin Degludec (Tresiba Fl extouch U-100) 100 unit/mL (3 mL) insulin pen Discontinued 0 SC AT BEDTIME October 17, 2020 11:15am November 20, 2020 5:25pm 50 units SC QHS Start: 12-10-2017 End: 10-17-2020 Insulin Degludec (Tresiba Fl extouch U-100) 100 unit/mL (3 mL) insulin pen Discontinued 0 SC AT BEDTIME 60 January 04, 2020 10:30am October 17, 2020 11:16am 60 units SC QHS Start: 08-16-2017 End: 12-10-2017 Insulin Degludec 100 UNIT/ML insulin pen Discontinued 54 U SQ AT BEDTIME August 16, 2017 12:00am December 10, 2017 9:52am 3 ml insulin lispro 100 unt/ml pen injector (20 sources) Insulin Analog Start: 11-12-2021 End: 09-23-2022 Insulin Lispro (Humalog Kwikpen Insulin) 100 unit/mL insulin pen Discontinued 1 sliding scale dose SC Use as Directed November 12, 2021 1:00am September 23, 2022 3:15pm Start: 11-12-2021 End: 09-23-2022 Insulin Lispro (Humalog Kwik pen Insulin) 100 unit/mL insulin pen Discontinued 1 sliding scale dose SC Use as Directed November 12, 2021 12:00am September 23, 2022 2:15pm Start: 01-16-2021 End: 07-02-2021 Insulin Lispro (Humalog Kwik pen Insulin) 200 unit/mL (3 mL) insulin pen Discontinued 50 U SC THREE TIMES A DAY 126 January 16, 2021 12:00am July 02, 2021 10:14am PLUS: 25 units with snacks and SSI Start: 11-20-2020 End: 01-16-2021 Insulin Lispro (Humalog Kwik pen Insulin) 100 unit/mL insulin pen Discontinued 40 U SC THREE TIMES A DAY 108 November 20, 2020 1:00am January 16, 2021 3:10pm 3 ml insulin, regular, human 500 unt/ml pen injector (20 sources) Insulin Start: 06-09-2024 End: 01-05-2025 inject 120 [IU] by subcutaneous injection twice daily in the morning, then inject 80 [IU] by subcutaneous injection twice daily in the evening Insulin Regular Hum U-500 Conc (Humulin R U-500 (Conc) Kwikpen) 500 unit/mL (3 mL) insulin pen Discontinued 0 SC TWICE A DAY 36 June 09, 2024 12:59pm January 05, 2025 2:19pm 120 u AM, 80 u PM subcutaneously twice a day; Start: 06-09-2024 End: 06-09-2024 Insulin Regular Hum U-500 Co nc (Humulin R U-500 (Conc) Kwikpen) 500 unit/mL (3 mL) insulin pen Discontinued 200 U SC TWICE A DAY 36 June 09, 2024 8:07am June 09, 2024 8:09am Start: 11-06-2021 End: 06-09-2024 inject 100 [IU] by subcutaneous injection twice daily in the morning, then inject 70 [IU] by subcutaneous injection twice daily in the evening Insulin Regular Hum U-500 Conc (Humulin R U-500 (Conc) Kwikpen) 500 unit/mL (3 mL) insulin pen Discontinued 0 SC TWICE A DAY 36 December 15, 2023 5:29pm June 09, 2024 8:09am 100 units am 70 units pm subcut twice a day; Start: 07-02-2021 End: 11-06-2021 Insulin Regular Hum U-500 Co nc (Humulin R U-500 (Conc) Kwikpen) 500 unit/mL (3 mL) insulin pen Discontinued 100 U SC TWICE A DAY 36 July 02, 2021 2:57pm November 06, 2021 12:11pm levothyroxine sodium 0.075 mg oral tablet (20 sources) l-Thyroxine Start: 02-10-2017 levothyroxine 75 mcg (0.075 mg) oral tablet Dose : 75 mcg = 1 tab(s), Oral, qDayAC, 0 Refill(s) Start Date: 02/10/17 Status: Ordered Start: 01-13-2017 End: 03-23-2025 take 1 tablet by mouth once daily at bedtime, then take 0.5 tablet by mouth once daily at bedtime Levothyroxine 75 mcg tablet Discontinued 75 ug PO AT BEDTIME March 02, 2024 9:18am March 23, 2025 2:27pm 1 tab q d, extra 1/2 tab Friday and friday PO QHS lisinopril 30 mg oral tablet (20 sources) Angiotensin Converting Enzyme Inhibitor Start: 09-29-2018 End: 10-12-2024 take 1 tablet by mouth once daily Lisinopril 30 mg tablet Discontinued 30 mg PO DAILY March 31, 2024 12:51pm October 12, 2024 1:43pm Start: 08-16-2017 End: 09-29-2018 take 3 tablets by mouth once daily Lisinopril 10 MG tablet Discontinued 30 mg PO DAILY August 16, 2017 12:00am September 29, 2018 12:31pm Start: 08-16-2017 End: 09-29-2018 take 30 mg by mouth once daily Lisinopril Discontinued 30 MG PO DAILY August 15, 2017 11:00pm September 29, 2018 11:31am Start: 02-10-2017 lisinopril 10 mg oral tablet Dose : 10 mg = 1 tab(s), Oral, Daily, 0 Refill(s) Start Date: 02/10/17 Status: Ordered LORazepam 0.5 mg oral tablet (17 sources) Benzodiazepine Start: 02-10-2017 End: 07-21-2018 take 1 tablet by mouth twice daily as needed for anxiety Lorazepam 0.5 MG tablet Discontinued 0.5 mg PO TWICE DAILY NEEDED as needed for Anxiety August 19, 2017 12:00am July 21, 2018 10:32am Start: 01-13-2017 End: 10-19-2024 take 1 tablet by mouth once daily as needed for anxiety Lorazepam 0.5 MG tablet Discontinued 0.5 mg PO DAILY NEEDED as needed for Anxiety January 13, 2017 12:00am October 19, 2024 4:08pm 1 ml medroxyPROGESTERone acetate 150 mg/ml injection (20 sources) Progestin Start: 12-29-2018 End: 09-15-2024 Medroxyprogesterone (Depo-Provera) 150 mg/mL suspension Discontinued 150 mg IM .[id number] October 08, 2023 12:00pm September 15, 2024 9:17am Start: 02-10-2017 inject 1 dose by int ramuscular injection once Depo-Provera Contraceptive Dose : 150 mg =, Intramuscular, Once, 0 Refill(s) Start Date: 02/10/17 Status: Ordered Start: 01-13-2017 End: 12-29-2018 inject 150 mg by intramuscular injection every three months Medroxyprogesterone 150 MG/ML syringe Discontinued 150 mg IM .[id number] January 13, 2017 12:00am December 29, 2018 11:59am Start: 01-13-2017 End: 12-29-2018 inject 150 mg by intramuscular injection every three months Medroxyprogesterone Discontinued 150 MG IM .[id number] January 12, 2017 11:00pm December 29, 2018 10:59am medroxyprogester one 104 MG/0.65ML Suspension Prefilled Syringe Active meloxicam 15 mg oral tablet (5 sources) Nonsteroidal Anti-inflammatory Drug Start: 04-20-2024 End: 04-05-2025 take 1 tablet by mouth once daily Meloxicam 15 mg tablet Discontinued 15 mg PO DAILY April 20, 2024 12:00am April 05, 2025 3:48pm Meloxicam 15 MG Tab Dispersible Active 24 hr metoprolol succinate 100 mg extended release oral tablet (20 sources) beta-Adrenergic Magi Start: 03-27-2022 End: 04-15-2024 take 1 tablet by mouth once daily Metoprolol Succinate 100 mg tablet extended release 24 hr Discontinued 100 mg PO DAILY May 07, 2023 8:11am April 15, 2024 12:57pm Start: 01-03-2022 End: 03-27-2022 take 1 tablet by mouth once daily Metoprolol Succinate 50 mg tablet extended release 24 hr Discontinued 50 mg PO DAILY January 03, 2022 1:00am March 27, 2022 9:29am metroNIDAZOLE 500 mg oral tablet (8 sources) Nitroimidazole Antimicrobial Start: 06-06-2021 End: 06-16-2021 take 1 tablet by mouth three times daily Metronidazole 500 mg tablet Discontinued 500 mg PO THREE TIMES A DAY 30 June 06, 2021 12:00am June 15, 2021 12:00am June 16, 2021 12:01am mupirocin 20 mg/ml topical cream (8 sources) RNA Synthetase Inhibitor Antibacterial Start: 12-09-2022 End: 04-23-2023 Mupirocin Calcium 2 % cream Discontinued 1 NMA TOPICAL TWICE A DAY December 09, 2022 1:00am April 23, 2023 4:38pm Apply pea-sized amount to each nare twice a day 5 days before surgery Drug Treatment Unknown - unknown (2 sources) No information available. pantoprazole 40 mg delayed release oral tablet (20 sources) Proton Pump Inhibitor Start: 09-29-2018 End: 10-12-2024 take 1 tablet by mouth once daily Pantoprazole 40 mg tablet,delayed release (DR/EC) Discontinued 40 mg PO DAILY January 05, 2024 6:49pm October 12, 2024 1:43pm Start: 02-10-2017 take 3 doses by mout h once daily pantoprazole 40 mg oral granule, enteric coated Dose : 120 mg = 3 EA, Oral, qDay, # 90 EA, 0 Refill(s) Start Date: 02/10/17 Status: Ordered Start: 01-13-2017 End: 09-29-2018 Pantoprazole 40 MG tablet Discontinued 20 mg PO AT BEDTIME January 13, 2017 12:00am September 29, 2018 12:32pm Start: 01-13-2017 End: 09-29-2018 take 20 mg by mouth at bedtime Pantoprazole Discontinu ed 20 MG PO AT BEDTIME January 12, 2017 11:00pm September 29, 2018 11:32am Pantoprazole Sod ium (pantoprazole, [id number],) 40 MG tablet Active PARoxetine hydrochloride 10 mg oral tablet (9 sources) Serotonin Reuptake Inhibitor Start: 01-13-2017 End: 09-29-2018 take 1 tablet by mouth at bedtime Paroxetine Hcl 10 MG tablet Discontinued 10 mg PO AT BEDTIME January 13, 2017 12:00am September 29, 2018 1:01pm pioglitazone 30 mg oral tablet (20 sources) Peroxisome Proliferator Receptor alpha Agonist, Peroxisome Proliferator Receptor gamma Agonist, Thiazolidinedione Start: 01-13-2017 End: 10-05-2019 take 1 tablet by mouth at bedtime Pioglitazone 30 mg tablet Discontinued 30 mg PO AT BEDTIME October 21, 2018 1:07pm October 05, 2019 11:52am rosuvastatin calcium 20 mg oral tablet (20 sources) HMG-CoA Reductase Inhibitor Start: 06-22-2019 End: 10-12-2024 take 1 tablet by mouth once daily Rosuvastatin 20 mg tablet Discontinued 20 mg PO daily December 25, 2023 5:21pm October 12, 2024 1:43pm Start: 05-15-2018 End: 06-22-2019 Rosuvastatin (Crestor) 40 mg tablet Discontinued 20 mg PO daily May 15, 2018 12:00am June 22, 2019 4:43pm Semaglutide (20 sources) Start: 08-12-2022 End: 04-09-2023 Semaglutide (Ozempic) 1 mg/d ose (4 mg/3 mL) pen injector Discontinued 2 mg SC EVERY WEEK August 12, 2022 12:00am April 09, 2023 8:25am 1 mg x2 while Ozempic 2 mg is on back order Start: 08-12-2022 End: 04-09-2023 Semaglutide (Ozempic) 1 mg/d ose (4 mg/3 mL) pen injector Discontinued 2 MG SC EVERY WEEK August 11, 2022 11:00pm April 09, 2023 7:25am 1 mg x2 while Ozempic 2 mg is on back order Start: 08-12-2022 End: 04-09-2023 Semaglutide (Ozempic) 1 mg/d ose (4 mg/3 mL) pen injector Discontinued 2 MG SC EVERY WEEK August 12, 2022 12:00am April 09, 2023 8:25am 1 mg x2 while Ozempic 2 mg is on back order Start: 08-12-2022 Semaglutide (O zempic) 1 mg/dose (4 mg/3 mL) pen injector Active 2 MG SC EVERY WEEK August 11, 2022 11:00pm 1 mg x2 while Ozempic 2 mg is on back order Start: 01-07-2022 End: 06-27-2022 Semaglutide (Ozempic) 1 mg/d ose (4 mg/3 mL) pen injector Discontinued 1 mg SC EVERY WEEK January 07, 2022 5:53pm June 27, 2022 2:05pm Start: 01-07-2022 End: 06-27-2022 Semaglutide (Ozempic) 1 mg/d ose (4 mg/3 mL) pen injector Discontinued 1 MG SC EVERY WEEK January 07, 2022 5:53pm June 27, 2022 2:05pm Start: 01-07-2022 End: 06-27-2022 Semaglutide (Ozempic) 1 mg/d ose (4 mg/3 mL) pen injector Discontinued 1 MG SC EVERY WEEK January 07, 2022 4:53pm June 27, 2022 1:05pm Start: 01-02-2022 End: 01-07-2022 Semaglutide (Ozempic) 1 mg/d ose (4 mg/3 mL) pen injector Discontinued 1 mg SC EVERY WEEK January 02, 2022 1:00am January 07, 2022 5:59pm Start: 01-02-2022 End: 01-07-2022 Semaglutide (Ozempic) 1 mg/d ose (4 mg/3 mL) pen injector Discontinued 1 MG SC EVERY WEEK January 02, 2022 1:00am January 07, 2022 5:59pm Start: 01-02-2022 End: 01-07-2022 Semaglutide (Ozempic) 1 mg/d ose (4 mg/3 mL) pen injector Discontinued 1 MG SC EVERY WEEK January 02, 2022 12:00am January 07, 2022 4:59pm 0.25 mg, 0.5 mg dose 1.5 ml semaglutide 1.34 mg/ml pen injector (8 sources) Start: 11-06-2021 End: 01-07-2022 Semaglutide (Ozempic) 0.25 mg or 0.5 mg(2 mg/1.5 mL) pen injector Discontinued 0.5 mg SC EVERY WEEK 1.5 November 06, 2021 1:00am January 07, 2022 5:58pm simvastatin 40 mg oral tablet (8 sources) HMG-CoA Reductase Inhibitor Start: 08-16-2017 End: 05-15-2018 take 1 tablet by mouth once daily Simvastatin 40 MG tablet Discontinued 40 mg PO DAILY August 16, 2017 12:00am May 15, 2018 1:01pm sucralfate 1000 mg oral tablet (8 sources) Aluminum Complex Start: 12-24-2018 End: 03-18-2019 take 1 tablet by mouth four times daily Sucralfate 1 GM tablet Discontinued 1 g PO 4 TIMES DAILY December 24, 2018 1:00am March 18, 2019 9:46am sulfamethoxazole 800 mg / trimethoprim 160 mg oral tablet (8 sources) Dihydrofolate Reductase Inhibitor Antibacterial, Sulfonamide Antimicrobial Start: 12-11-2020 End: 12-28-2020 Sulfamethoxazole- Trimethoprim (Bactrim Ds) 800-160 mg tablet Discontinued 1 {tbl} PO Q12H 20 December 11, 2020 1:00am December 28, 2020 2:38pm Tirzepatide (Mounjaro) 10 mg/0.5 mL pen injector (7 sources) Start: 04-09-2023 End: 04-15-2023 Tirzepatide (Mounjaro) 10 mg/0.5 mL pen injector Discontinued 10 mg SC EVERY WEEK April 09, 2023 12:00am April 15, 2023 9:49am Start: 04-09-2023 End: 04-15-2023 Tirzepatide (Mounjaro) 10 mg /0.5 mL pen injector Discontinued 10 MG SC EVERY WEEK April 08, 2023 11:00pm April 15, 2023 8:49am Start: 04-09-2023 End: 04-15-2023 Tirzepatide (Mounjaro) 10 mg /0.5 mL pen injector Discontinued 10 MG SC EVERY WEEK April 09, 2023 12:00am April 15, 2023 9:49am Start: 04-09-2023 Tirzepatide (M ounjaro) 10 mg/0.5 mL pen injector Active 10 MG SC EVERY WEEK April 09, 2023 12:00am 24 hr venlafaxine 37.5 mg extended release oral capsule (8 sources) Serotonin and Norepinephrine Reuptake Inhibitor Start: 06-27-2022 End: 09-23-2022 take 1 capsule by mouth once daily Venlafaxine (Effexor Xr) 37.5 mg capsule,extended release 24hr Discontinued 37.5 mg PO DAILY 90 June 27, 2022 12:00am September 23, 2022 3:16pm Vitamin B Complex (8 sources) Start: 07-06-2019 End: 04-23-2023 vitamin B complex (B Complex-Vitamin B12) Discontinued PO July 05, 2019 11:00pm April 23, 2023 3:39pm Start: 07-06-2019 End: 04-23-2023 vitamin B complex (B Complex -Vitamin B12) Discontinued PO July 06, 2019 12:00am April 23, 2023 4:39pm Start: 07-06-2019 vitamin B comp vanessa (B Complex-Vitamin B12) Active PO July 06, 2019 12:00am Start: 07-06-2019 vitamin B comp vanessa (B Complex-Vitamin B12) Active PO July 05, 2019 11:00pm Problems Active Problems Problem Classification Problem Date Documented Da te Episodic/Chronic Abdominal hernia (1 source) Hiatal hernia 02-10-2017 Episodic Comment on above: HISTORY OF Anxiety disorders (1 source) Anxiety 02-10-2017 Chronic Cancer of cervix (16 sources) Atypical squamous cells of undetermined significance on cervical Papanicolaou smear; Translations: [Atypical squamous cells of undetermined significance on cytologic smear of cervix (ASC-US)] 01-04-2021 Episodic Comment on above: repeat pap 12/2021 s/p LEEP 2018 Cardiac dysrhythmias (8 sources) Tachycardia; Translations: [Tachycardia, unspecified] 01-02-2022 Episodic Diabetes mellitus with complications (10 sources) Retinopathy due to diabetes mellitus; Translations: [Other specified diabetes mellitus with unspecified diabetic retinopathy without macular edema] Onset: 5 05-03-2024 Chronic Diabetes mellitus without complication (20 sources) Diabetes mellitus; Translations: [Type 2 diabetes mellitus without complications] Onset: 5 08-15-2020 Chronic Comment on above: Dx : age 25Last exac erbation : DKA : never Hypoglycemic episode : never ER visit : 2008 - was to er x 3 for elevated bg after steroids Diabetes mellitus without complication (4 sources) Diabetes mellitus without complication Disorders of lipid metabolism (18 sources) Hyperlipidemia; Translations: [Hyperlipidemia, unspecified] 11-06-2021 Chronic Esophageal disorders (1 source) Gastroesophageal reflux disease 02-10-2017 Chronic Essential hypertension (20 sources) Hypertensive disorder; Translations: [Essential (primary) hypertension] Onset: 5 04-18-2019 Chronic Gastroduodenal ulcer (except hemorrhage) (1 source) Gastric ulcer 02-10-2017 Chronic Comment on above: HISTORY OF Genitourinary symptoms and ill-defined conditions (12 sources) Microalbuminuria; Translations: [Proteinuria, unspecified] Onset: 5 04-07-2023 Episodic Intracranial injury (1 source) Concussion with no loss of consciousness; Translations: [Concussion without loss of consciousness, initial encounter] Onset: Episodic Malaise and fatigue (8 sources) Fatigue; Translations: [Other fatigue] Onset: 5 10-20-2023 Episodic Mood disorders (11 sources) Depressive disorder; Translations: [Depression] 06-27-2022 Chronic Other aftercare (1 source) [facility] (current) use of insulin; Translations: [[facility] (current) use of insulin] Onset: 5 Episodic Other connective tissue disease (8 sources) Acquired trigger finger of right little finger; Translations: [Trigger finger, right little finger] 10-23-2021 Episodic Comment on above: Orthopedic injection was recommended Other connective tissue disease (20 sources) Triggering of digit; Translations: [Trigger finger, right index finger] 10-23-2021 Episodic Comment on above: Orthopedic injection was recommended. Other connective tissue disease (16 sources) Trigger thumb of left hand; Translations: [Trigger thumb, left thumb] 08-10-2021 Episodic Other connective tissue disease (16 sources) Fibromyalgia; Translations: [Fibromyalgia] 05-14-2021 Episodic Other connective tissue disease (16 sources) Trigger thumb of right hand; Translations: [Trigger thumb, right thumb] 05-14-2021 Episodic Other connective tissue disease (1 source) Trigger thumb, left thumb; Translations: [Trigger finger (acquired)] 12-09-2022 Episodic Other connective tissue disease (1 source) Trigger thumb, right thumb; Translations: [Trigger finger (acquired)] 12-09-2022 Episodic Other connective tissue disease (1 source) Trigger finger, left index finger; Translations: [Trigger finger (acquired)] 12-09-2022 Episodic Other connective tissue disease (1 source) Trigger finger, left ring finger; Translations: [Trigger finger (acquired)] 12-09-2022 Episodic Other connective tissue disease (1 source) Trigger finger, right index finger; Translations: [Trigger finger (acquired)] 12-09-2022 Episodic Other connective tissue disease (1 source) Trigger finger, right ring finger; Translations: [Trigger finger (acquired)] 12-09-2022 Episodic Other connective tissue disease (1 source) Pain in unspecified hand; Translations: [Pain in limb] 12-09-2022 Episodic Other connective tissue disease (1 source) Fibromyalgia; Translations: [Myalgia and myositis, unspecified] 04-23-2023 Episodic Other gastrointestinal disorders (4 sources) Constipation; Translations: [Constipation, unspecified] 04-05-2025 Episodic Other nutritional; endocrine; and metabolic disorders (9 sources) Obesity; Translations: [Obesity, unspecified] 01-02-2022 Chronic Other nutritional; endocrine; and metabolic disorders (7 sources) Obesity, unspecified; Translations: [Obesity, unspecified] 09-23-2022 Chronic Other nutritional; endocrine; and metabolic disorders (1 source) Body mass index 30+ - obesity; Translations: [Obesity, unspecified] 11-25-2024 Chronic Other screening for suspected conditions (not mental disorders or infectious disease) (1 source) Encounter for screening mammogram for malignant neoplasm of breast; Translations: [Encounter for screening mammogram for malignant neoplasm of breast] Onset: Episodic Other screening for suspected conditions (not mental disorders or infectious disease) (2 sources) No current problems or disability 08-18-2017 Residual codes; unclassified (1 source) Hypersomnia; Translations: [Hypersomnia, unspecified] 11-25-2024 Chronic Residual codes; unclassified (5 sources) Sleep apnea; Translations: [Sleep apnea, unspecified] 10-19-2024 Chronic Residual codes; unclassified (1 source) Hypersomnia, unspecified; Translations: [Hypersomnia, unspecified] Onset: 5 Chronic Residual codes; unclassified (1 source) Sleep apnea, unspecified; Translations: [Sleep apnea, unspecified] Onset: 4 Chronic Residual codes; unclassified (8 sources) Tobacco use and exposure - finding; Translations: [Tobacco use] 04-18-2019 Episodic Comment on above: Cigarette tobacco, 1 ppd. Skin and subcutaneous tissue infections (20 sources) Abscess of right thigh; Translations: [Cutaneous abscess of right lower limb] 05-24-2021 Episodic Substance-related disorders (1 source) Smoker 02-10-2017 Chronic Superficial injury; contusion (1 source) Contusion of left knee; Translations: [Contusion of left knee, initial encounter] Onset: 3 Episodic Thyroid disorders (19 sources) Hypothyroidism; Translations: [Hypothyroidism, unspecified] Onset: 5 01-02-2022 Chronic Unclassified (2 sources) New Patient; Translations: [New Patient] Onset: 5 Past or Other Problems Problem Classification Problem Date Documented Da te Episodic/Chronic Unclassified (8 sources) boil right buttocks 06-03-2022 Results Test Name Value Interpretation Reference Range Facility Endocrinology Visit Reporton 04-25-2025 Endocrinology Visit Report [facility] [address] [place] [address] OFFICE VISIT Date of Service: 04/25/25 MR#: [id number] Acct: [id number] Name: HALLIE AVILA Rep #: [id number] : 1980 Provider: OSCAR bee Age/Sex: 44/F Location[facility] Status: Signed Intake Vital Signs 10/25/24 10:44 04/05/25 15:49 04/25/25 13:21 Height 5 ft 5 in 5 ft 5 in 5 ft 5 in Weight: 227 lb 226 lb BMI 37.8 37.5 BP 124/80 H 113/78 Blood Pressure Location Lt brachial Rt brachial Position Sitting Sitting Respiration 16 Pulse 89 99 Pulse Source Monitor Monitor Temp 97.1 F L Temp Source Temporal Pulse Oximetry (%) 97 98 Oxygen Delivery Method room air room air Intake Visit Reasons: 6 M FU Chief Complaint: f/u diabetes/hypothyro id Is patient in pain?: No Allergies clindamycin Allergy (Mild, Verified 04/25/25 13:25) hives morphine Adverse Reaction (Verified 04/25/25 13:25) Vomiting Medications ???Medication ???Instructions ???Recorded ???Confirmed ???Type melatonin 5 mg tablet 5 mg PO HS PRN 03/27/22 04/25/25 H istory metoprolol succinate 100 mg 100 mg PO DAILY #90 tabs 04/15/24 04/25/25 Rx tablet,extended release 24 hr medroxyprogesteron e 150 mg/mL 150 mg IM .every 10 weeks #1 mL 04/25/25 Rx intramuscular suspension cholecalciferol (vitamin D3) 125 5,000 unit PO DAILY #90 caps 10/1204/25/25 Rx mcg (5,000 unit) capsule duloxetine 60 mg capsule,delayed 60 mg PO DAILY #90 caps 10/12/24 0 04/25/25 Rx release lisinopril 30 mg tablet 30 mg PO DAILY #90 tabs 10/12/24 0 04/25/25 Rx pantoprazole 40 mg tablet,delayed 40 mg PO DAILY #90 tabs 10/12/24 04/25/25 Rx release rosuvastatin 20 mg tablet 20 mg PO QDAY #90 tabs 10/12/24 Rx amlodipine 5 mg tablet 5 mg PO DAILY #90 tabs 12/09/24 Rx Ozempic 2 mg/dose (8 mg/3 mL) 2 mg (0.75 mL) subcut QWEEK #9 mL 12/13/24 04/25/25 Rx subcutaneous pen injector (semaglutide) insulin regular hum U-500 conc 500 See Rx Instructions subcut BID # 36 01/05/25 04/25/25 Rx unit/mL(3 mL) subcut pen (Humulin mL R U-500 (Conc) Insulin Kwikpen) hydrochlorothiazid e 12.5 mg tablet 12.5 mg PO DAILY #90 tabs 04/25/25 Rx levothyroxine 75 mcg tablet 75 mcg PO QHS THYROID #90 tabs 04/25/25 Rx beet root PO 04/25/25 History blood-glucose sensor (FreeStyle #2 ea 04/25/25 04/25/25 Rx Feliberto 2 Plus Sensor device) [facility] Medical History (Updated 04/25/25 @ 15:43 by OSCAR Barrientos) Fibromyalgia Depression Obesity Abscess of right thigh Abscess of groin, right Hyperlipidemia Fibromyalgia boil right buttocks Anxiety and depression Seasonal allergies Labial cyst GERD (gastroesophageal reflux disease) HTN (hypertension), benign Hypothyroidism HTN (hypertension) Tobacco use HLD (hyperlipidemia) Diabetes mellitus, type II Surgical History Status post trigger finger release History of carpal tunnel release of both wrists H/O LEEP Abdominal wall abscess History of bilateral carpal tunnel release Family History Mother Diabetes Hypertension CAD (coronary artery disease) Thyroid disorder High cholesterol Father Diabetes Hypertension Cancer skin Grandmother Diabetes Hypertension Social History household members: other details: roommates housing: house current occupational status: employed 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[employer] Smoking Status: Current every day smoker tobacco type: cigarettes alcohol intake: current alcohol intake frequency: holidays/special occasions only details: occasionally substance use type: does not use caffeine: Yes what type of physical activity do you participate in: none seatbelt use: always do you feel safe at home: Yes 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 A1C today is 7.1%, essentially unchanged from 10/25/25. Weight is stable. Currently taking U500 120 u AM and 80 u PM and Ozempic 2 mg qweek. CGM tracings reviewed- she is having recurring lows during sleeping hours. She is having occasional post meal elevations. She denies any recent episode of hypoglycemia that has required assistance from others. BP controlled. Currently taking amlodipine 5 mg once daily, HCTZ 12.5 mg once daily, lisinopril 30 mg once daily, and metoprolol (more content not included)... Normal [facility] Anion gap in Serum or Plasma Ordered By: Rosalinda Becerra on 04-11-2025 Anion gap [Moles/Vol] 13 mmol/L -15 [facility] BUN/creatinine ratioOrdered By: Rosalinda Becerra on 04-11-2025 Urea nitrogen/Creatinine [Mass ratio] 17.4 mg/mg - [facility] Basic Metabolic Profile (BMP )on 04-11-2025 BUN/CRE 17.4 RATIO Normal - [facility] Comment on above: Performed By: #### L [id number], L500.2500 ####[facility] [address] [place], [address] Calcium [Mass/Vol] 10.2 mg/dL Normal 7.6-11.0 [facility] Comment on above: Performed By: #### L [id number], L500.2500 ####[facility] [address] [place], [address] Chloride [Moles/Vol] 103 mmol/L Normal 98-108 [facility] Comment on above: Performed By: #### L [id number], L500.2500 ####[facility] [address] [place], [address] CO2 [Moles/Vol] 24.4 mmol/L Normal 21.0-32.0 [facility] Comment on above: Performed By: #### L [id number], L500.2500 ####[facility] [address] [place], [address] Creatinine [Mass/Vol] 1.16 mg/dL Normal 0.70-1.20 [facility] Comment on above: Performed By: #### L [id number], L500.2500 ####[facility] [address] [place], [address] GAP 13 Normal -15 [facility] Comment on above: Performed By: #### L [id number], L500.2500 ####[facility] [address] [place], [address] GFR/1.73 sq M.predicted among non-blacks MDRD (S/P/Bld) [Vol rate/Area] 60 mL/min/{1.73_m2} Normal >60 [facility] Comment on above: Result Comment: mL/m in/1.73m2 CKD-EPI Creatinine Equation (2020) Performed By: #### L [id number], L500.2500 ####[facility] [address] [place], [address] Glucose [Mass/Vol] 140 mg/dL High 70-99 [facility] Comment on above: Performed By: #### L [id number], L500.2500 ####[facility] [address] [place], [address] Potassium [Moles/Vol] 5.0 mmol/L Normal 3.3-5.1 [facility] Comment on above: Performed By: #### L [id number], L500.2500 ####[facility] [address] [place], [address] Sodium [Moles/Vol] 140 mmol/L Normal 133-145 [facility] Comment on above: Performed By: #### L [id number], L500.2500 ####[facility] [address] [place], [address] Urea nitrogen [Mass/Vol] 20 mg/dL High 4-19 [facility] Comment on above: Performed By: #### L [id number], L500.2500 ####[facility] [address] [place], [address] Carbon dioxide, total [Moles /volume] in Central venous bloodOrdered By: Rosalinda Becerra on 04-11-2025 CO2 [Moles/Vol] 24.4 mmol/L 21.0-32.0 [facility] Chloride assayOrdered By: Do frank Becerra on 04-11-2025 Chloride [Moles/Vol] 103 mmol/L 98-108 [facility] Glomerular filtration rate ( GFR) estimation/1.73 sq m using serum, plasma, or whole bOrdered By: Rosalinda Becerra on 04-11-2025 GFR/1.73 sq M.predicted among non-blacks MDRD (S/P/Bld) [Vol rate/Area] 60 mL/min/{1.73_m2} >60 [facility] Comment on above: mL/min/1.73m2 CKD-EP I Creatinine Equation (2020) Potassium measurement (mass/ volume)Ordered By: Rosalinda Becerra on 04-11-2025 Potassium (Unsp spec) [Mass/Vol] 5.0 mmol/L 3.3-5.1 [facility] Serum creatinine measurement (mass/volume)Ordered By: Rosalinda Becerra on 04-11-2025 Creatinine [Mass/Vol] 1.16 mg/dL 0.70-1.20 [facility] Serum glucose measurement (m ass/volume)Ordered By: Rosalinda Becerra on 04-11-2025 Glucose [Mass/Vol] 140 mg/dL High 70-99 [facility] Serum or plasma calcium eduardo urement (mass/volume)Ordered By: Rosalinda Becerra on 04-11-2025 Calcium [Mass/Vol] 10.2 mg/dL 7.6-11.0 [facility] Serum or plasma urea nitroge n measurement (mass/volume)Ordered By: Rosalinda Becerra on 04-11-2025 Urea nitrogen [Mass/Vol] 20 mg/dL High 4-19 [facility] Sodium levelOrdered By: Vasquez Becerra on 04-11-2025 Sodium [Moles/Vol] 140 mmol/L 133-145 [facility] TSH DL <= 0.005 mIU/L QnOrde red By: Rosalinda Becerra on 04-11-2025 TSH Qn 3.190 uIU/mL 0.300-4.200 [facility] Thyroid Stim Hormone (TSH)on 04-11-2025 TSH 3.190 uIU/mL Normal 0.300-4.200 [facility] Comment on above: Performed By: #### L [id number], L500.2500 ####[facility] [address] [place], [place], [address] Internal Medicine Office Vis chasidy 04-05-2025 Internal Medicine Office Visit [facility] [address] [place] [address] [place] [address] OFFICE VISIT Date of Service: 04/05/25 MR#: [id number] Acct: [id number] Name: HALLIE AVILA Rep #: [id number] : 1980 Provider: Dr. 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 Is patient in pain?: No Allergies clindamycin Allergy (Mild, Verified 04/05/25 15:34) hives morphine Adverse Reaction (Verified 04/05/25 15:34) Vomiting Medications ???Medication ???Instructions ???Recorded ???Confirmed ???Type melatonin 5 mg tablet 5 mg PO HS PRN 03/27/22 04/05/25 H istory metoprolol succinate 100 mg 100 mg PO DAILY #90 tabs 04/15/24 04/05/25 Rx tablet,extended release 24 hr medroxyprogesteron e 150 mg/mL 150 mg IM .every 10 weeks #1 mL 04/05/25 Rx intramuscular suspension cholecalciferol (vitamin D3) 125 5,000 unit PO DAILY #90 caps 10/1204/05/25 Rx mcg (5,000 unit) capsule duloxetine 60 mg capsule,delayed 60 mg PO DAILY #90 caps 10/12/24 0 04/05/25 Rx release lisinopril 30 mg tablet 30 mg PO DAILY #90 tabs 10/12/24 0 04/05/25 Rx pantoprazole 40 mg tablet,delayed 40 mg PO DAILY #90 tabs 10/12/24 04/05/25 Rx release rosuvastatin 20 mg tablet 20 mg PO QDAY #90 tabs 10/12/24 Rx amlodipine 5 mg tablet 5 mg PO DAILY #90 tabs 12/09/24 Rx Ozempic 2 mg/dose (8 mg/3 mL) 2 mg (0.75 mL) subcut QWEEK #9 mL 12/13/24 04/05/25 Rx subcutaneous pen injector (semaglutide) flash glucose sensor (FreeStyle #2 ea 01/05/25 04/05/25 Rx Feliberto 2 Sensor kit) insulin regular hum U-500 conc 500 See Rx Instructions subcut BID # 36 01/05/25 04/05/25 Rx unit/mL(3 mL) subcut pen (Humulin mL R U-500 (Conc) Insulin Kwikpen) hydrochlorothiazid e 12.5 mg tablet 12.5 mg PO DAILY #90 tabs 04/05/25 Rx levothyroxine 75 mcg tablet 75 mcg PO QHS THYROID #90 tabs 04/05/25 Rx Nurse's Note: * Wants to know if beet root is okay to add to list for joint pain and circulatory, as she is not supposed to take nsaids and is trying to find something to help w/ general body aches pain. * Pt states that she has been getting spots in her eye that has been ongoing, pt did mention at her eye exam 6 months ago this was happening but it is increasing in frequency and intensity. Was ad vised by Dr. perkins to see the vitreo retina consultants. Pt did not call yet. Pt states the spots are in both eyes and could be spots, blotches, or lines and when she looks at light they are red. * Pt states for about 6 months now she has had constipation, Pt has 1-2 BMs a week. Pt states when she does have a BM it is hard like a rock. she takes a stool softener qam, and fiber. Pt states that it doesn't seem to make a difference. 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 Pt denies blood in stool, or hemmrhoid but has had it happen before. [facility] Medical History Fibromyalgia Depression Obesity Abscess of right thigh Abscess of groin, right Hyperlipidemia Fibromyalgia boil right buttocks Anxiety and depression Seasonal allergies Labial cyst GERD (gastroesophageal reflux disease) HTN (hypertension), benign Hypothyroidism HTN (hypertension) Tobacco use HLD (hyperlipidemia) Diabetes mellitus, type II Surgical History Status post trigger finger release History of carpal tunnel release of both wrists H/O LEEP Abdominal wall abscess History of bilateral carpal tunnel release Family History Mother Diabetes Hypertension CAD (coronary artery disease) Thyroid disorder High cholesterol Father Diabetes Hypertension Cancer skin Grandmother Diabetes Hypertension Social History household members: other details: roommates housing: house current occupational status: employed 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 Normal [facility] 19-BU-Pxigzgz DOrdered By: Andrew Cr on 10-25-2024 Vitamin D 25-Hydroxy 55.9 ng/mL [facility] Comment on above: Vitamin D 25(OH) Sta tus Range Deficiency <20 ng/mL (50nmol/L) Insufficiency 20 - 30 ng/mL (50 - 75 nmol/L) Sufficiency 30 - 100 ng/mL (75 - 250 nmol/L) Toxicity >100 ng/mL (>250 nmol/L) Albumin to globulin ratioOrd ered By: Misa Cr on 10-25-2024 Albumin/Globulin [Mass ratio] 0.9 {ratio} 0.9-2.4 [facility] Bilirubin, totalOrdered By: Misa Cr on 10-25-2024 Bilirubin [Mass/Vol] 0.40 mg/dL 0.20-1.00 [facility] Comment on above: For patients on eltr ombopag therapy, use of Dimension Casey TBIL is not recommended. Blood urea nitrogen (BUN)/cr eatinine ratioOrdered By: Misa Cr on 10-25-2024 Urea nitrogen/Creatinine [Mass ratio] 24.7 mg/mg High 10-20 [facility] Carbon dioxide measurementOr dered By: Misa Cr on 10-25-2024 CO2 [Moles/Vol] 26.0 mmol/L 21.0-32.0 [facility] Chloride measurementOrdered By: Misa Cr on 10-25-2024 Chloride [Moles/Vol] 108 mmol/L High 98-107 [facility] Comprehensive Metabolic Prof ilon 10-25-2024 Albumin [Mass/Vol] 3.6 g/dL Normal 3.2-5.0 [facility] Comment on above: Performed By: #### L 500.4100, L500.4050, L501.9520, L506.1000, L506.0400 #### [facility] [address] [place], [address] Albumin/Globulin [Mass ratio] 0.9 {ratio} Normal 0.9-2.4 [facility] Comment on above: Performed By: #### L 500.4100, L500.4050, L501.9520, L506.1000, L506.0400 #### [facility] [address] [place], [address] ALK P 60 U/L Normal 45-117 [facility] Comment on above: Performed By: #### L 500.4100, L500.4050, L501.9520, L506.1000, L506.0400 #### [facility] [address] [place], [address] ALT [Catalytic activity/Vol] 25 U/L Normal 13-56 [facility] Comment on above: Performed By: #### L 500.4100, L500.4050, L501.9520, L506.1000, L506.0400 #### [facility] [address] [place], [address] AST [Catalytic activity/Vol] 16 U/L Normal 15-37 [facility] Comment on above: Performed By: #### L 500.4100, L500.4050, L501.9520, L506.1000, L506.0400 #### [facility] [address] [place], [address] Bilirubin [Mass/Vol] 0.40 mg/dL Normal 0.20-1.00 [facility] Comment on above: Result Comment: For patients on eltrombopag therapy, use of Dimension Casey TBIL is not recommended. Performed By: #### L 500.4100, L500.4050, L501.9520, L506.1000, L506.0400 #### [facility] [address] [place], [address] BUN/CRE 24.7 RATIO High 10-20 [facility] Comment on above: Performed By: #### L 500.4100, L500.4050, L501.9520, L506.1000, L506.0400 #### [facility] [address] [place], [address] CA,Total 9.6 mg/dL Normal 8.5-10.1 [facility] Comment on above: Performed By: #### L 500.4100, L500.4050, L501.9520, L506.1000, L506.0400 #### [facility] [address] [place], [address] Chloride [Moles/Vol] 108 mmol/L High 98-107 [facility] Comment on above: Performed By: #### L 500.4100, L500.4050, L501.9520, L506.1000, L506.0400 #### [facility] [address] [place], [address] CO2 [Moles/Vol] 26.0 mmol/L Normal 21.0-32.0 [facility] Comment on above: Performed By: #### L 500.4100, L500.4050, L501.9520, L506.1000, L506.0400 #### [facility] [address] [place], [address] Creatinine [Mass/Vol] 1.46 mg/dL High 0.55-1.02 [facility] Comment on above: Result Comment: The validity of the calculated GFR GFRAA in patients over 70 years has not been determined. Clinical correlation is essential. Performed By: #### L 500.4100, L500.4050, L501.9520, L506.1000, L506.0400 #### [facility] [address] [place], [address] EST GFR - AA 51 mL/min Low >60 [facility] Comment on above: Result Comment: Afri can [place] GFR Calc Performed By: #### L 500.4100, L500.4050, L501.9520, L506.1000, L506.0400 #### [facility] [address] [place], [address] GAP 5 Normal 5-15 [facility] Comment on above: Performed By: #### L 500.4100, L500.4050, L501.9520, L506.1000, L506.0400 #### [facility] [address] [place], [address] GFR/1.73 sq M.predicted among non-blacks MDRD (S/P/Bld) [Vol rate/Area] 42 mL/min/{1.73_m2} Low >60 [facility] Comment on above: Result Comment: Non- GFR Calc Performed By: #### L 500.4100, L500.4050, L501.9520, L506.1000, L506.0400 #### [facility] [address] [place], [address] Globulin (S) [Mass/Vol] 4.2 g/dL Normal 2.2-4.2 [facility] Comment on above: Performed By: #### L 500.4100, L500.4050, L501.9520, L506.1000, L506.0400 #### [facility] [address] [place], [address] Glucose [Mass/Vol] 106 mg/dL Normal 74-106 [facility] Comment on above: Result Comment: Fast ing Glucose result from 100 to 125 mg/dL suggests IMPAIRED HOMEOSTASIS per A.D.A. criteria. Performed By: #### L 500.4100, L500.4050, L501.9520, L506.1000, L506.0400 #### [facility] [address] [place], [address] Potassium [Moles/Vol] 4.5 mmol/L Normal 3.5-5.1 [facility] Comment on above: Performed By: #### L 500.4100, L500.4050, L501.9520, L506.1000, L506.0400 #### [facility] [address] [place], [address] Sodium [Moles/Vol] 138 mmol/L Normal 136-145 [facility] Comment on above: Performed By: #### L 500.4100, L500.4050, L501.9520, L506.1000, L506.0400 #### [facility] [address] [place], [address] T PROT 7.8 g/dL Normal 6.4-8.2 [facility] Comment on above: Performed By: #### L 500.4100, L500.4050, L501.9520, L506.1000, L506.0400 #### [facility] [address] [place], [address] Urea nitrogen [Mass/Vol] 36 mg/dL High 7-18 [facility] Comment on above: Performed By: #### L 500.4100, L500.4050, L501.9520, L506.1000, L506.0400 #### [facility] [address] [place], [address] Direct serum free thyroxine (FT4) measurementOrdered By: Misa Cr on 10-25-2024 Free T4 [Mass/Vol] 1.22 ng/dL 0.76-1.46 [facility] Endocrinology Visit Reporton 10-25-2024 Endocrinology Visit Report [facility] [address] [place] [address] OFFICE VISIT Date of Service: 10/25/24 MR#: [id number] Acct: [id number] Name: HALLIE AVILA Rep #: [id number] : 1980 Provider: OSCAR bee Age/Sex: 44/F Location: [facility] [place] Status: Signed Intake Vital Signs 05/03/24 13:18 06/22/24 13:04 10/19/24 15:17 10/25/24 10:44 Height 5 ft 5 in 5 ft 5 in 5 ft 5 in 5 ft 5 in Weight: 230 lb 229 lb 226 lb 8 oz BMI 38.2 38.1 37.7 BP 129/86 H 128/70 H 153/93 H Blood Pressure Location Rt brachial Rt brachial Position Sitting Sitting Respiration 17 16 Pulse 103 H 99 98 Pulse Source Monitor Monitor Temp 96.6 F L 97.6 F L Temp Source Temporal Pulse Oximetry (%) 10 99 98 Oxygen Delivery Method room air room air Intake Visit Reasons: 5 M FU Chief Complaint: f/u diabetes/hypothyro id Is patient in pain?: No Allergies clindamycin Allergy (Mild, Verified 10/25/24 10:48) hives morphine Adverse Reaction (Verified 10/25/24 10:48) Vomiting Medications ???Medication ???Instructions ???Recorded ???Confirmed ???Type melatonin 5 mg tablet 5 mg PO HS PRN 03/27/22 10/25/24 History levothyroxine 75 mcg tablet 75 mcg PO QHS THYROID #90 tabs 03/02/24 10/25/24 Rx metoprolol succinate 100 mg 100 mg PO DAILY #90 tabs 04/15/24 10/25/24 Rx tablet,extended release 24 hr hydrochlorothiazid e 12.5 mg tablet 12.5 mg PO DAILY #90 tabs 04/16/24 10/25/24 Rx meloxicam 15 mg tablet 15 mg PO DAILY #90 tabs 04/20/24 10/25/24 Rx Ozempic 2 mg/dose (8 mg/3 mL) 2 mg (0.75 mL) subcut QWEEK #9 mL 06/09/24 10/25/24 Rx subcutaneous pen injector (semaglutide) insulin regular hum U-500 conc 500 See Rx Instructions subcut BID #36 06/09/24 10/25/24 Rx unit/mL(3 mL) subcut pen (Humulin mL R U-500 (Conc) Insulin Kwikpen) amlodipine 5 mg tablet 5 mg PO DAILY #90 tabs 06/13/24 10/25/24 Rx flash glucose sensor (FreeStyle #2 ea 07/16/24 10/25/24 Rx Feliberto 2 Sensor kit) medroxyprogesteron e 150 mg/mL 150 mg IM .every 10 weeks #1 mL 09/15/24 10/25/24 Rx intramuscular suspension cholecalciferol (vitamin D3) 125 5,000 unit PO DAILY #90 caps 10/12/24 10/25/24 Rx mcg (5,000 unit) capsule duloxetine 60 mg capsule,delayed 60 mg PO DAILY #90 caps 10/12/24 10/25/24 Rx release lisinopril 30 mg tablet 30 mg PO DAILY #90 tabs 10/12/24 10/25/24 Rx pantoprazole 40 mg tablet,delayed 40 mg PO DAILY #90 tabs 10/12/24 10/25/24 Rx release rosuvastatin 20 mg tablet 20 mg PO QDAY #90 tabs 10/12/24 10/25/24 Rx PFSH Medical History Fibromyalgia Depression Obesity Abscess of right thigh Abscess of groin, right Hyperlipidemia Fibromyalgia boil right buttocks Anxiety and depression Seasonal allergies Labial cyst GERD (gastroesophageal reflux disease) HTN (hypertension), benign Hypothyroidism HTN (hypertension) Tobacco use HLD (hyperlipidemia) Diabetes mellitus, type II Surgical History Status post trigger finger release History of carpal tunnel release of both wrists H/O LEEP Abdominal wall abscess History of bilateral carpal tunnel release Family History Mother Diabetes Hypertension CAD (coronary artery disease) Thyroid disorder High cholesterol Father Diabetes Hypertension Cancer skin Grandmother Diabetes Hypertension Social History household members: other details: roommates housing: house current occupational status: employed 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[employer] Smoking Status: Current every day smoker tobacco type: cigarettes alcohol intake: current alcohol intake frequency: holidays/special occasions only details: occasionally substance use type: does not use caffeine: Yes what type of physical activity do you participate in: none seatbelt use: always do you feel safe at home: Yes 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 A1C today is 7.2%, improved from 05/03/24 at 7.7%. She has lost 5 lbs. Currently taking U500 120 u AM and 80 u PM and Ozempic 2 mg qweek- tolerating well. CGM tracings reviewed- she is having lows during sleeping hours, she has intermittent post meal elevations at supper. Denies any significant episode of hypoglycemia that has required assistance from others. Reports when blood sugar is 60-70's she feels well. (more content not included)... Normal [facility] Estimated glomerular filtrat ion rate (GFR) AmericanOrdered By: iMsa Cr on 10-25-2024 Estimated GFR (MDRD) Amer 51 mL/min Low >60 [facility] Comment on above: GFR Calc Glomerular filtration rate ( GFR) estimationOrdered By: Misa Cr on 10-25-2024 Estimated GFR (MDRD) Non-Af Amer 42 mL/min Low >60 [facility] Comment on above: Non- GFR Calc Glucose measurementOrdered B y: Misa Cr on 10-25-2024 Glucose [Mass/Vol] 106 mg/dL 74-106 [facility] Comment on above: Fasting Glucose resu lt from 100 to 125 mg/dL suggests IMPAIRED HOMEOSTASIS per A.D.A. criteria. High density lipoprotein (HD L) measurementOrdered By: Misa Cr on 10-25-2024 Cholesterol in HDL [Mass/Vol] 42 mg/dL >40 [facility] Comment on above: The drugs N-Acetylcy steine and Metamizole may falsely depress this assay. Reference Range HDL <40 mg/dL Low HDL Cholesterol HDL >or= 60 mg/dL High HDL Cholesterol Laboratory - Chemistry and C hemistry - challengeOrdered By: Misa Cr on 10-25-2024 AST [Catalytic activity/Vol] 16 U/L 15-37 [facility] Laboratory - Hematology and Cell countson 10-25-2024 HbA1c (Bld) [Mass fraction] 7.2 % High 4.2-6.3 [facility] Lipid Profileon 10-25-2024 Cholesterol [Mass/Vol] 158 mg/dL Normal 200 [facility] Comment on above: Result Comment: <200 mg/dL Desirable 200-240 mg/dL Borderline >240 mg/dL High Risk Performed By: #### L 500.4100, L500.4050, L501.9520, L506.1000, L506.0400 #### [facility] [address] [place], [address] Cholesterol in HDL [Mass/Vol] 42 mg/dL Normal [facility] Comment on above: Result Comment: The drugs N-Acetylcysteine and Metamizole may falsely depress this assay. Reference Range HDL <40 mg/dL Low HDL Cholesterol HDL >or= 60 mg/dL High HDL Cholesterol Performed By: #### L 500.4100, L500.4050, L501.9520, L506.1000, L506.0400 #### [facility] [address] [place], [address] Cholesterol in LDL [Mass/Vol] 82 mg/dL Normal 0-130 [facility] Comment on above: Performed By: #### L 500.4100, L500.4050, L501.9520, L506.1000, L506.0400 #### [facility] [address] [place], [address] Cholesterol in VLDL [Mass/Vol] 34 mg/dL Normal 5-40 [facility] Comment on above: Performed By: #### L 500.4100, L500.4050, L501.9520, L506.1000, L506.0400 #### [facility] [address] [place], [address] Triglyceride [Mass/Vol] 169 mg/dL Normal [facility] Comment on above: Result Comment: The drugs N-Acetylcysteine and Metamizole may falsely depress this assay. Serum Triglycerides Reference Interval Normal <150 mg/dL Borderline high 150 - 199 mg/dL High 200 - 499 mg/dL Very High > or = 500 mg/dL Performed By: #### L 500.4100, L500.4050, L501.9520, L506.1000, L506.0400 #### [facility] [address] [place], [address] Low density lipoprotein (LDL ) cholesterol measurementOrdered By: Misa Cr on 10-25-2024 Cholesterol in LDL [Mass/Vol] 82 mg/dL 0-130 [facility] Microalb:Creat Ratio,Random URon 10-25-2024 Creatinine [Mass/Vol] 247.00 mg/dL Normal NO RAN GE EST. [facility] Comment on above: Performed By: #### L 502.0250 #### [facility] [address] [place], [address] MALB:CRE 115.4 mg/g CRE High <30 mg/g CRE [facility] Comment on above: Performed By: #### L 502.0250 #### [facility] [address] [place], [address] MICROALBUMIN,UR 285.0 mg/L Normal NO RANGE EST. [facility] Comment on above: Performed By: #### L 502.0250 #### [facility] [address] [place], [place], [id number] Potassium measurementOrdered By: Misa Cr on 10-25-2024 Potassium [Moles/Vol] 4.5 mmol/L 3.5-5.1 [facility] Random urine microalbumin me asurementOrdered By: Misa Cr on 10-25-2024 Urine Random Microalbumin 285.0 mg/L NO RANGE EST. [facility] Serum anion gap measurementO rdered By: Misa Cr on 10-25-2024 Anion gap [Moles/Vol] 5 mmol/L 5-15 [facility] Serum globulin measurementOr dered By: Misa Cr on 10-25-2024 Globulin (S) [Mass/Vol] 4.2 g/dL 2.2-4.2 [facility] Serum or plasma alanine ford otransferase (ALT) measurementOrdered By: Misa Cr on 10-25-2024 ALT [Catalytic activity/Vol] 25 U/L 13-56 [facility] Serum or plasma albumin eduardo urement (mass/volume)Ordered By: Misa Cr on 10-25-2024 Albumin [Mass/Vol] 3.6 g/dL 3.2-5.0 [facility] Serum or plasma alkaline asad sphatase measurementOrdered By: Misa Cr on 10-25-2024 ALP [Catalytic activity/Vol] 60 U/L 45-117 [facility] Serum or plasma calcium eduardo urement (mass/volume)Ordered By: Misa Cr on 10-25-2024 Calcium [Mass/Vol] 9.6 mg/dL 8.5-10.1 [facility] Serum or plasma cholesterol measurement (mass/volume)Ordered By: Misa Cr on 10-25-2024 Cholesterol [Mass/Vol] 158 mg/dL <200 [facility] Comment on above: <200 mg/dL Desirable 200-240 mg/dL Borderline >240 mg/dL High Risk Serum or plasma creatinine m easurement (mass/volume)Ordered By: Misa Cr on 10-25-2024 Creatinine [Mass/Vol] 1.46 mg/dL High 0.55-1.02 [facility] Comment on above: The validity of the calculated GFR & GFRAA in patients over 70 years has not been determined. Clinical correlation is essential. Serum or plasma urea nitroge n measurement (mass/volume)Ordered By: Misa Cr on 10-25-2024 Urea nitrogen [Mass/Vol] 36 mg/dL High 7-18 [facility] Sodium levelOrdered By: Justin Cr on 10-25-2024 Sodium [Moles/Vol] 138 mmol/L 136-145 [facility] T4 Free Directon 10-25-2024 T4 FREE DIRECT 1.22 ng/dL Normal 0.76-1.46 [facility] Comment on above: Performed By: #### L 500.4100, L500.4050, L501.9520, L506.1000, L506.0400 ####[facility] [address] [place], [place], [id number] TSH QnOrdered By: Misa bee on 10-25-2024 Thyroid Stimulating Hormone (TSH) 5.420 uIU/mL High 0.358-3.740 [facility] Thyroid Stim Hormone (TSH)on 10-25-2024 TSH 5.420 uIU/mL High 0.358-3.740 [facility] Comment on above: Performed By: #### L 500.4100, L500.4050, L501.9520, L506.1000, L506.0400 #### [facility] [address] [place], [place], [id number] Total proteinOrdered By: Pepper Cr on 10-25-2024 Protein [Mass/Vol] 7.8 g/dL 6.4-8.2 [facility] Triglycerides measurementOrd ered By: Misa Cr on 10-25-2024 Triglyceride [Mass/Vol] 169 mg/dL <199 [facility] Comment on above: The drugs N-Acetylcy steine and Metamizole may falsely depress this assay.Serum Triglycerides Reference Interval Normal <150 mg/dL Borderline high 150 - 199 mg/dL High 200 - 499 mg/dL Very High > or = 500 mg/dL Urine albumin/creatinine rat io for detection of microalbuminuriaOrdered By: Misa Cr on 10-25-2024 Urine Microalbumin/Creatinine Ratio 115.4 mg/g CRE High <30 [facility] Urine creatinine measurement (mass/volume)Ordered By: Misa Cr on 10-25-2024 Creatinine (U) [Mass/Vol] 247.00 mg/dL NO RANGE EST. [facility] Very low density lipoprotein (VLDL) cholesterol measurementOrdered By: Misa Cr on 10-25-2024 VLDL Cholesterol 34 mg/dL 5-40 [facility] Vitamin D,25 Hydroxyon 10-25 Vitamin D 25-OH 55.9 ng/mL Normal [facility] Comment on above: Result Comment: Radha min D 25(OH) Status Range Deficiency <20 ng/mL (50nmol/L) Insufficiency 20 - 30 ng/mL (50 - 75 nmol/L) Sufficiency 30 - 100 ng/mL (75 - 250 nmol/L) Toxicity >100 ng/mL (>250 nmol/L) Performed By: #### L 500.4100, L500.4050, L501.9520, L506.1000, L506.0400 #### [facility] [address] [place], [address] Internal Medicine Office Vis chasidy 10-19-2024 Internal Medicine Office Visit [facility] [place] [address] [place] [address] OFFICE VISIT Date of Service: 10/19/24 MR#: [id number] Acct: [id number] Name: HALLIE AVILA Rep #: [id number] : 1980 Provider: Dr. 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 Is patient in pain?: No Allergies clindamycin Allergy (Mild, Verified 10/19/24 15:08) hives morphine Adverse Reaction (Verified 06/22/24 13:27) Vomiting Medications ???Medication ???Instructions ???Recorded ???Confirmed ???Type melatonin 5 mg tablet 5 mg PO HS PRN 03/27/22 10/19/24 History levothyroxine 75 mcg tablet 75 mcg PO QHS THYROID #90 tabs 03/02/24 10/19/24 Rx metoprolol succinate 100 mg 100 mg PO DAILY #90 tabs 04/15/24 10/19/24 Rx tablet,extended release 24 hr hydrochlorothiazid e 12.5 mg tablet 12.5 mg PO DAILY #90 tabs 04/16/24 10/19/24 Rx meloxicam 15 mg tablet 15 mg PO DAILY #90 tabs 04/20/24 10/19/24 Rx Ozempic 2 mg/dose (8 mg/3 mL) 2 mg (0.75 mL) subcut QWEEK #9 mL 06/09/24 10/19/24 Rx subcutaneous pen injector (semaglutide) insulin regular hum U-500 conc 500 See Rx Instructions subcut BID #36 06/09/24 10/19/24 Rx unit/mL(3 mL) subcut pen (Humulin mL R U-500 (Conc) Insulin Kwikpen) amlodipine 5 mg tablet 5 mg PO DAILY #90 tabs 06/13/24 10/19/24 Rx flash glucose sensor (FreeStyle #2 ea 07/16/24 10/19/24 Rx Feliberto 2 Sensor kit) medroxyprogesteron e 150 mg/mL 150 mg IM .every 10 weeks #1 mL 09/15/24 10/19/24 Rx intramuscular suspension cholecalciferol (vitamin D3) 125 5,000 unit PO DAILY #90 caps 10/12/24 10/19/24 Rx mcg (5,000 unit) capsule duloxetine 60 mg capsule,delayed 60 mg PO DAILY #90 caps 10/12/24 10/19/24 Rx release lisinopril 30 mg tablet 30 mg PO DAILY #90 tabs 10/12/24 10/19/24 Rx pantoprazole 40 mg tablet,delayed 40 mg PO DAILY #90 tabs 10/12/24 10/19/24 Rx release rosuvastatin 20 mg tablet 20 mg PO QDAY #90 tabs 10/12/24 10/19/24 Rx Nurse's Note: patient concerned with inflammation, has had cortisone injections in fingers [facility] PFSH Medical History Fibromyalgia Depression Obesity Abscess of right thigh Abscess of groin, right Hyperlipidemia Fibromyalgia boil right buttocks Anxiety and depression Seasonal allergies Labial cyst GERD (gastroesophageal reflux disease) HTN (hypertension), benign Hypothyroidism HTN (hypertension) Tobacco use HLD (hyperlipidemia) Diabetes mellitus, type II Surgical History Status post trigger finger release History of carpal tunnel release of both wrists H/O LEEP Abdominal wall abscess History of bilateral carpal tunnel release Family History Mother Diabetes Hypertension CAD (coronary artery disease) Thyroid disorder High cholesterol Father Diabetes Hypertension Cancer skin Grandmother Diabetes Hypertension Social History household members: other details: roommates housing: house current occupational status: employed 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 She feels tired through the day. She has a hard time staying awake while driving. She is a loud snorer. Her mother notices periods of apnea she is not losing weight on her Ozempic although her sugars under better control and one of the reasons people who do not lose weight with the Ozempic is because they have sleep apnea. ROS Const Constitutional: No body ache, excessive sweating, fatigue, fever(s), frequent falls, headache(s), snoring, weakness, weight change, sleep problems or change in appetite Eyes Eyes: No blurry vision, change in vision, eye pain or Light sensitivity ENT ENT: No abnormal hearing, ear or mastoid pain, tinnitus, nasal congestion, headache(s), neck pain or sore throat Resp Respiratory: No (more content not included)... Normal [facility] Surgery Visit Reporton 06-22 Surgery Visit Report [facility] [address] [place] [address] OFFICE VISIT Date of Service: 06/22/24 MR#: [id number] Acct: [id number] Name: HALLIE AVILA Rep #: [id number] : 1980 Provider: ALEXIA wynn Age/Sex: 43/F Location: [facility] Status: Signed Intake Vital Signs 05/03/24 13:18 06/22/24 07:38 06/22/24 13:04 Height 5 ft 5 in 5 ft 5 in 5 ft 5 in Weight: 231 lb 230 lb BMI 38.4 38.2 BP 112/74 129/86 H Blood Pressure Location Lt brachial Rt brachial Position Sitting Sitting Respiration 17 Pulse 97 103 H Pulse Source Monitor Monitor Temp 96.6 F L Temp Source Temporal Pulse Oximetry (%) 97 10 Oxygen Delivery Method room air room air Intake Visit Reasons: ABSCESS TAILBONE Chief Complaint: abcess tailbone Is patient in pain?: Yes Allergies clindamycin Allergy (Mild, Verified 06/22/24 13:27) hives morphine Adverse Reaction (Verified 06/22/24 13:27) Vomiting Medications ???Medication ???Instructions ???Recorded ???Confirmed ???Type lorazepam 0.5 mg tablet 0.5 mg PO DAILY PRN PRN Anxiety 01/13/17 06/22/24 History melatonin 5 mg tablet 5 mg PO HS PRN 03/27/22 06/22/24 History cholecalciferol (vitamin D3) 125 5,000 unit PO DAILY #90 caps 09/30/23 06/22/24 Rx mcg (5,000 unit) capsule medroxyprogesteron e 150 mg/mL 150 mg IM .d93varm #1 mL 10/08/23 06/22/24 Rx intramuscular suspension (Depo-Provera) rosuvastatin 20 mg tablet 20 mg PO QDAY #90 tabs 12/25/23 06/22/24 Rx flash glucose sensor (FreeStyle #2 ea 01/02/24 06/22/24 Rx Feliberto 14 Day Sensor kit) pantoprazole 40 mg tablet,delayed 40 mg PO DAILY #90 tabs 01/05/24 06/22/24 Rx release levothyroxine 75 mcg tablet 75 mcg PO QHS THYROID #90 tabs 03/02/24 06/22/24 Rx lisinopril 30 mg tablet 30 mg PO DAILY #90 tabs 03/31/24 06/22/24 Rx duloxetine 60 mg capsule,delayed 60 mg PO DAILY #90 caps 04/15/24 06/22/24 Rx release metoprolol succinate 100 mg 100 mg PO DAILY #90 tabs 04/15/24 06/22/24 Rx tablet,extended release 24 hr hydrochlorothiazid e 12.5 mg tablet 12.5 mg PO DAILY #90 tabs 04/16/24 06/22/24 Rx meloxicam 15 mg tablet 15 mg PO DAILY #90 tabs 04/20/24 06/22/24 Rx Ozempic 2 mg/dose (8 mg/3 mL) 2 mg (0.75 mL) subcut QWEEK #9 mL 06/09/24 06/22/24 Rx subcutaneous pen injector (semaglutide) insulin regular hum U-500 conc 500 See Rx Instructions subcut BID #36 06/09/24 06/22/24 Rx unit/mL(3 mL) subcut pen (Humulin mL R U-500 (Conc) Insulin Kwikpen) amlodipine 5 mg tablet 5 mg PO DAILY #90 tabs 06/13/24 06/22/24 Rx doxycycline monohydrate 100 mg 100 mg PO BID 7 days #14 caps 06/22/24 06/22/24 Rx capsule [facility] Medical History (Updated 06/22/24 @ 13:30 by Ann WALL PATiarraC) Fibromyalgia Depression Obesity Abscess of right thigh Abscess of groin, right Hyperlipidemia Fibromyalgia boil right buttocks Anxiety and depression Seasonal allergies Labial cyst GERD (gastroesophageal reflux disease) HTN (hypertension), benign Hypothyroidism HTN (hypertension) Tobacco use HLD (hyperlipidemia) Diabetes mellitus, type II Surgical History Status post trigger finger release History of carpal tunnel release of both wrists H/O LEEP Abdominal wall abscess History of bilateral carpal tunnel release Family History Mother Diabetes Hypertension CAD (coronary artery disease) Thyroid disorder High cholesterol Father Diabetes Hypertension Cancer skin Grandmother Diabetes Hypertension Social History household members: other details: roommates housing: house current occupational status: employed 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 Patient notes the lump started towards the end of last week. She notes having a previous pilonidal many years ago. She notes the lump was in the same away. She denies any trauma to the area. She notes minimal amount of drainage from the lump. She notes having a low grade fever last night. She notes the area is tender. ROS General General: Yes fatigue; No weight (more content not included)... Normal [facility] Absolute lymphocyte countOrd ered By: Misa Tayo on 10-20-2023 Lymphocytes Auto (Unsp spec) [#/Vol] 3.66 10*3/uL 0.83-4.51 [facility] Basophil percentageOrdered B y: Misa Tayo on 10-20-2023 Basophils/100 WBC (Bld) 0.5 % 0-1 [facility] Bilirubin [Mass/Vol] 0.40 mg/dL 0.20-1.00 [facility] Comment on above: For patients on eltr ombopag therapy, use of Dimension Casey TBIL is not recommended. Chloride [Moles/Vol] 110 mmol/L 98-107 [facility] Cholesterol [Mass/Vol] 156 mg/dL <200 [facility] Comment on above: <200 mg/dL Desirable 200-240 mg/dL Borderline >240 mg/dL High Risk Eosinophils/100 WBC (Bld) 0.9 % 0-5 [facility] Glucose [Mass/Vol] 91 mg/dL 74-106 [facility] Neutrophils (Bld) [#/Vol] 9.5 10*3/uL 2.0-7.7 [facility] Neutrophils/100 WBC (Bld) 66.0 % 47-70 [facility] Potassium [Moles/Vol] 4.7 mmol/L 3.5-5.1 [facility] Protein [Mass/Vol] 7.6 g/dL 6.4-8.2 [facility] Sodium [Moles/Vol] 141 mmol/L 136-145 [facility] Triglyceride [Mass/Vol] 216 mg/dL <199 [facility] Comment on above: The drugs N-Acetylcy steine and Metamizole may falsely depress this assay.Serum Triglycerides Reference Interval Normal <150 mg/dL Borderline high 150 - 199 mg/dL High 200 - 499 mg/dL Very High > or = 500 mg/dL WBC (Bld) [#/Vol] 14.4 10*3/uL 4.4-11.0 [facility] Blood erythrocytes count (nu mber/volume)Ordered By: Misa Cr on 10-20-2023 RBC (Bld) [#/Vol] 5.38 10*6/uL 4.2-5.4 [facility] Blood hemoglobin measurement (mass/volume)Ordered By: Misa Cr on 10-20-2023 Hemoglobin (Bld) [Mass/Vol] 14.8 g/dL 12.0-15.0 [facility] Blood lymphocytes/100 leukoc ytesOrdered By: Misa Cr on 10-20-2023 Lymphocytes/100 WBC (Bld) 25.4 % 19-41 [facility] Blood monocytes/100 leukocyt esOrdered By: Misa Cr on 10-20-2023 Monocytes/100 WBC (Bld) 6.6 % 0-10 [facility] Blood platelet mean volumeOr dered By: Misa Cr on 10-20-2023 Platelet mean volume (Bld) [Entitic vol] 10.7 fL 6.2-12.0 [facility] Determination of erythrocyte mean corpuscular volume (MCV)Ordered By: Misa Cr on 10-20-2023 MCV (RBC) [Entitic vol] 87.5 fL 81-99 [facility] Hematocrit Auto (Bld) [Volum e fraction]Ordered By: Misa Cr on 10-20-2023 Hematocrit (Bld) [Volume fraction] 47.1 % 37-47 [facility] Laboratory - Chemistry and C hemistry - challengeOrdered By: Misa Cr on 10-20-2023 ALP [Catalytic activity/Vol] 57 U/L 45-117 [facility] ALT [Catalytic activity/Vol] 29 U/L 13-56 [facility] CO2 [Moles/Vol] 27.0 mmol/L 21.0-32.0 [facility] Free T4 [Mass/Vol] 1.20 ng/dL 0.76-1.46 [facility] Globulin (S) [Mass/Vol] 4.1 g/dL 2.2-4.2 [facility] Urea nitrogen/Creatinine [Mass ratio] 18.1 mg/mg 10-20 [facility] Laboratory - Hematology and Cell countsOrdered By: Misa Cr on 10-20-2023 Erythrocyte distribution width (RBC) [Entitic vol] 45.1 fL 35.1-43.9 [facility] Erythrocyte distribution width (RBC) [Ratio] 14.2 % 11.6-14.6 [facility] Immature granulocytes/100 WBC (Bld) 0.600 % 0.0-0.9 [facility] Comment on above: IG% - Immature Granu locytes (promyelocytes, myelocytes and metamyelocytes) > 1% indicates that a LEFT SHIFT is Present. MCH (RBC) [Entitic mass] 27.5 pg 27.0-32.0 [facility] Nucleated RBC/100 WBC (Bld) [Ratio] 0 % 0-5 [facility] MCHC Auto (RBC) [Mass/Vol]Or dered By: Misa Cr on 10-20-2023 MCHC (RBC) [Mass/Vol] 31.4 g/dL 32-36 [facility] No Panel InformationOrdered By: Misa Cr on 10-20-2023 Urine Microalbumin/Creatinine Ratio 1017.3 mg/g CRE <30 [facility] Estimated GFR (MDRD) Amer 79 mL/min >60 [facility] Comment on above: GFR Calc Estimated GFR (MDRD) Non-Af Amer 65 mL/min >60 [facility] Comment on above: Non- GFR Calc Thyroid Stimulating Hormone (TSH) 1.62 uIU/mL 0.358-3.74 [facility] Platelets bldOrdered By: Pepper olguin Tayo on 10-20-2023 Platelets (Bld) [#/Vol] 416 10*3/uL 150-450 [facility] Serum or plasma albumin eduardo urement (mass/volume)Ordered By: Misa Cr on 10-20-2023 Albumin [Mass/Vol] 3.5 g/dL 3.2-5.0 [facility] Serum or plasma albumin/glob ulin mass ratioOrdered By: Misa Cr on 10-20-2023 Albumin/Globulin [Mass ratio] 0.9 {ratio} 0.9-2.4 [facility] Serum or plasma calcium eduardo urement (mass/volume)Ordered By: Misa Cr on 10-20-2023 Calcium [Mass/Vol] 9.4 mg/dL 8.5-10.1 [facility] Serum or plasma cholesterol in HDL measurement (mass/volume)Ordered By: Misa Cr on 10-20-2023 Cholesterol in HDL [Mass/Vol] 38 mg/dL >40 [facility] Comment on above: The drugs N-Acetylcy steine and Metamizole may falsely depress this assay. Reference Range HDL <40 mg/dL Low HDL Cholesterol HDL >or= 60 mg/dL High HDL Cholesterol Serum or plasma cholesterol in VLDL measurement (mass/volume)Ordered By: Misa Cr on 10-20-2023 Cholesterol in VLDL [Mass/Vol] 43 mg/dL 5-40 [facility] Serum or plasma creatinine m easurement (mass/volume)Ordered By: Misa Cr on 10-20-2023 Creatinine [Mass/Vol] 0.99 mg/dL 0.55-1.02 [facility] Comment on above: The validity of the calculated GFR & GFRAA in patients over 70 years has not been determined. Clinical correlation is essential. Serum or plasma ferritin devorah surement (mass/volume)Ordered By: Misa Cr on 10-20-2023 Ferritin [Mass/Vol] 183 ng/mL 8-252 [facility] Serum or plasma low density lipoprotein (LDL) cholesterol measurement (mass/volume)Ordered By: Misa Cr on 10-20-2023 Cholesterol in LDL [Mass/Vol] 75 mg/dL 0-130 [facility] Serum or plasma urea nitroge n measurement (mass/volume)Ordered By: Misa Cr on 10-20-2023 Urea nitrogen [Mass/Vol] 18 mg/dL 7-18 [facility] Thin prep Papanicolaou smear with manual screeningOrdered By: Misa Cr on 10-20-2023 Thin prep Papanicolaou smear with manual screening 2350.0 mg/L NO RANGE EST. [facility] Thin prep Papanicolaou smear with manual screening 18 U/L 15-37 [facility] Thin prep Papanicolaou smear with manual screening 4 5-15 [facility] Urine creatinine measurement (mass/volume)Ordered By: Misa Cr on 10-20-2023 Creatinine (U) [Mass/Vol] 231.00 mg/dL NO RANGE EST. [facility] CT HEAD OR BRAIN W/O CONTRAS Ton 09-17-2023 CT HEAD OR BRAIN W/O CONTRAST ORIGINAL HISTORY: Fall COMPARISON: No TECHNIQUE: Routine non-contrast head CT with sagittal and coronal reconstructions This exam was performed according to our departmental dose optimization program, and includes the following measures where applicable: automated exposure control, adjustment of the mAs and/or kVp according to patient size and/or exam, and an iterative reconstruction algorithm. FINDINGS: The ventricles and sulci are normal in size and configuration. There are no abnormal intra or extra-axial fluid collections. Shelton-white matter 2 D 3 T seen is maintained. The calvaria and the bones of the base of the skull are intact. There is chronic left maxillary sinus disease. IMPRESSION: Normal examination of the brain. Interpreted by: Oleksandr Arizmendi MD Preliminary Report By: Oleksandr Arizmendi MD Electronically signed By Oleksandr Arizmendi MD Dictated Date: 09/17/2023 3:06:18 PM Prelim Date: 09/17/2023 3:07:49 PM Sign Date: 09/17/2023 3:07:49 PM Ordering Provider: VIKKI ALVARADO [facility] ([place] XR KNEE THREE VIEWS LEFTon 1 11-17-2022 XR KNEE THREE VIEWS LEFT ORIGINAL EXAMINATION: THREE XRAY VIEWS OF THE LEFT KNEE 09/17/2023 2:56 pm COMPARISON: None. HISTORY: ORDERING SYSTEM PROVIDED HISTORY: Reason for Exam: Fall, pain FINDINGS: No acute fracture or dislocation. No aggressive osseous lesion, joint effusion, or radiopaque foreign body. Mild degenerative changes. IMPRESSION: No acute osseous abnormality. Interpreted by: Kenna Weber MD Preliminary Report By: Kenna Weber MD Electronically signed By Kenna Weber MD Dictated Date: 09/17/2023 3:08:36 PM Prelim Date: 09/17/2023 3:09:28 PM Sign Date: 09/17/2023 3:09:28 PM Ordering Provider: VIKKI ALVARADO [facility] ([place] Laboratory - Hematology and Cell countson 07-21-2023 HbA1c (Bld) [Mass fraction] 7.8 % 4.2-6.3 [facility] Whole blood hemoglobin A1c/t otal hemoglobin ratio (mass fraction)Ordered By: Misa Cr on 04-04-2023 HbA1c (Bld) [Mass fraction] 7.2 % 3.8-5.6 [facility] Comment on above: Normal < 5.7 % Predi abetic 5.7 - 6.4 % Diabetic >or= 6.5 % Please note range changes. Basophil percentageOrdered B y: Misa Cr on 12-23-2022 Bilirubin [Mass/Vol] 0.30 mg/dL 0.20-1.00 [facility] Comment on above: For patients on eltr ombopag therapy, use of Dimension Casey TBIL is not recommended. Chloride [Moles/Vol] 109 mmol/L 98-107 [facility] Cholesterol [Mass/Vol] 158 mg/dL <200 [facility] Comment on above: <200 mg/dL Desirable 200-240 mg/dL Borderline >240 mg/dL High Risk Glucose [Mass/Vol] 123 mg/dL 74-106 [facility] Comment on above: Fasting Glucose resu lt from 100 to 125 mg/dL suggests IMPAIRED HOMEOSTASIS per A.D.A. criteria. Potassium [Moles/Vol] 3.8 mmol/L 3.5-5.1 [facility] Protein [Mass/Vol] 7.1 g/dL 6.4-8.2 [facility] Sodium [Moles/Vol] 141 mmol/L 136-145 [facility] Triglyceride [Mass/Vol] 343 mg/dL <199 [facility] Comment on above: The drugs N-Acetylcy steine and Metamizole may falsely depress this assay.Serum Triglycerides Reference Interval Normal <150 mg/dL Borderline high 150 - 199 mg/dL High 200 - 499 mg/dL Very High > or = 500 mg/dL Laboratory - Chemistry and C hemistry - challengeOrdered By: Misa Cr on 12-23-2022 ALP [Catalytic activity/Vol] 62 U/L 45-117 [facility] ALT [Catalytic activity/Vol] 30 U/L 13-56 [facility] CO2 [Moles/Vol] 27.0 mmol/L 21.0-32.0 [facility] Free T4 [Mass/Vol] 1.02 ng/dL 0.76-1.46 [facility] Globulin (S) [Mass/Vol] 4.0 g/dL 2.2-4.2 [facility] Urea nitrogen/Creatinine [Mass ratio] 18.4 mg/mg 10-20 [facility] Laboratory - Hematology and Cell countson 12-23-2022 HbA1c (Bld) [Mass fraction] 7.8 % [facility] No Panel InformationOrdered By: Misa Cr on 12-23-2022 Urine Microalbumin/Creatinine Ratio 2661.3 mg/g CRE <30 [facility] Estimated GFR (MDRD) Amer 93 mL/min >60 [facility] Comment on above: GFR Calc Estimated GFR (MDRD) Non-Af Amer 77 mL/min >60 [facility] Comment on above: Non- GFR Calc Thyroid Stimulating Hormone (TSH) 2.04 uIU/mL 0.358-3.74 [facility] Vitamin D 25-Hydroxy 31.5 ng/mL [facility] Comment on above: Vitamin D 25(OH) Sta tus Range Deficiency <20 ng/mL (50nmol/L) Insufficiency 20 - 30 ng/mL (50 - 75 nmol/L) Sufficiency 30 - 100 ng/mL (75 - 250 nmol/L) Toxicity >100 ng/mL (>250 nmol/L) Serum or plasma albumin eduardo urement (mass/volume)Ordered By: Misa Cr on 12-23-2022 Albumin [Mass/Vol] 3.1 g/dL 3.2-5.0 [facility] Serum or plasma albumin/glob ulin mass ratioOrdered By: Misa Cr on 12-23-2022 Albumin/Globulin [Mass ratio] 0.8 {ratio} 0.9-2.4 [facility] Serum or plasma calcium eduardo urement (mass/volume)Ordered By: Misa Cr on 12-23-2022 Calcium [Mass/Vol] 9.6 mg/dL 8.5-10.1 [facility] Serum or plasma cholesterol in HDL measurement (mass/volume)Ordered By: Misa Cr on 12-23-2022 Cholesterol in HDL [Mass/Vol] 37 mg/dL >40 [facility] Comment on above: The drugs N-Acetylcy steine and Metamizole may falsely depress this assay. Reference Range HDL <40 mg/dL Low HDL Cholesterol HDL >or= 60 mg/dL High HDL Cholesterol Serum or plasma cholesterol in VLDL measurement (mass/volume)Ordered By: Misa Cr on 12-23-2022 Cholesterol in VLDL [Mass/Vol] 69 mg/dL 5-40 [facility] Serum or plasma creatinine m easurement (mass/volume)Ordered By: Misa Cr on 12-23-2022 Creatinine [Mass/Vol] 0.87 mg/dL 0.55-1.02 [facility] Comment on above: The validity of the calculated GFR & GFRAA in patients over 70 years has not been determined. Clinical correlation is essential. Serum or plasma low density lipoprotein (LDL) cholesterol measurement (mass/volume)Ordered By: Misa Cr on 12-23-2022 Cholesterol in LDL [Mass/Vol] 52 mg/dL 0-130 [facility] Serum or plasma urea nitroge n measurement (mass/volume)Ordered By: Misa Cr on 12-23-2022 Urea nitrogen [Mass/Vol] 16 mg/dL 7-18 [facility] Thin prep Papanicolaou smear with manual screeningOrdered By: Misa rC on 12-23-2022 Thin prep Papanicolaou smear with manual screening 8250.0 mg/L NO RANGE EST. [facility] Thin prep Papanicolaou smear with manual screening 16 U/L 15-37 [facility] Thin prep Papanicolaou smear with manual screening 5 5-15 [facility] Urine creatinine measurement (mass/volume)Ordered By: Misa Cr on 12-23-2022 Creatinine (U) [Mass/Vol] 310.00 mg/dL NO RANGE EST. [facility] Laboratory - Hematology and Cell countson 09-23-2022 HbA1c (Bld) [Mass fraction] 7.6 % [facility] COVID PCR, SCREENING CONGREG ATEon 04-27-2020 CORONAVIRUS 2019,PCR NOT DETECTED Normal Not Detected [facility] Comment on above: Result Comment: This assay is designed to detect the N, ORF1ab and/or S genes of SARS-CoV-2 via nucleic acid amplification. A Negative (NOT DETECTED) result does not preclude 2019-nCoV infection since the adequacy of sample collection and/or low viral burden may result in presence of viral nucleic acids below the clinical sensitivity of this test method. Negative (NOT DETECTED) result should not be used as the sole basis for treatment or other patient management decisions. Rather negative results should be combined with clinical observations, patient history, and epidemiological information to make patient management decisions. Fact sheet for providers: https://www.fda.gov/media/660538/download Fact sheet for patients: https://www.fda.gov/media/611430/download This test has received FDA Emergency Use Authorization (EUA) and has been verified by [facility] ([facility]). This test is only authorized for the duration of time that circumstances exist to justify the authorization of the emergency use of in vitro diagnostic tests for the detection of SARS-CoV-2 virus and/or diagnosis of COVID-19 infection under section 564(b)(1) of the Act, 21 U.S.C. 360bbb-3(b)(1), unless the authorization is terminated or revoked sooner. [facility] ([facility]) is certified under CLIA-88 as qualified to perform high complexity testing. This tests analytical performance characteristics have been determined by [facility]. Testing is performed at [facility] is located at [address] [place] [address] (CLIA License #[id number], CAP #[id number]). Performed By: #### C [facility] #### [facility] [address] [place] [address] COVID PCR, SCREENING CONGREG ATEon 04-26-2020 Lab Specimen Source Nasal, Nasopharyngeal Normal [facility] Comment on above: Performed By: #### C [facility] #### [facility] [address] [facility] [address] Microbiology: Culture, Blood (WB)on 08-21-2017 Bacteria identified Cx Nom (Bld) BCNo growth in 5 days. Invalid Interpretation Code [facility] Work Phone: [phone] Lab Report: Bedside Glucoseo n 08-20-2017 Glucose mass conc 292 mg/dL High 70-110 [facility] Work Phone: [phone] Lab Report: Basic Metabolic Profile (BMP)on 08-19-2017 Anion gap 4 molar conc 9 Invalid Interpretation Code 5-15 [facility] Work Phone: [phone] Calcium mass conc 8.4 mg/dL Low 8.5-10.1 [facility] Work Phone: [phone] Chloride molar conc 109 mmol/L High 98-107 [facility] Work Phone: [phone] CO2 ppres (BldV) 22.0 mmol/L Invalid Interpretation Code 21.0-32.0 [facility] Work Phone: [phone] EST GFR - AA 152 mL/min Invalid Interpretation Code >60 [facility] Work Phone: [phone] GFR/1.73 sq M predicted among non-blacks MDRD vol rate/area (S/P/Bld) 126 mL/min/{1.73_m2} Invalid Interpretation Code >60 [facility] Work Phone: [phone] Potassium molar conc 3.5 mmol/L Invalid Interpretation Code 3.5-5.1 [facility] Work Phone: [phone] Sodium molar conc 140 mmol/L Invalid Interpretation Code 136-145 [facility] Work Phone: [phone] Urea nitrogen/Creatinine mass ratio 13.8 RATIO Invalid Interpretation Code 10-20 [facility] Work Phone: [phone] Creatinine mass conc 0.58 mg/dL Invalid Interpretation Code 0.55-1.02 [facility] Work Phone: [phone] Glucose mass conc 266 mg/dL High 70-110 [facility] Work Phone: [phone] Urea nitrogen mass conc 8 mg/dL Invalid Interpretation Code 7-18 [facility] Work Phone: [phone] Lab Report: CBC W/Diff, Auto matedon 08-19-2017 Basophils/100 WBC Auto (Bld) 0.2 % Invalid Interpretation Code 0-1 [facility] Work Phone: [phone] Eosinophils/100 WBC Auto (Bld) 2.8 % Invalid Interpretation Code 0-5 [facility] Work Phone: [phone] Erythrocyte distribution width Auto Ratio (RBC) 12.9 % Invalid Interpretation Code 11.6-14.6 [facility] Work Phone: [phone] Erythrocyte distribution width Auto Ratio (RBC) 38.8 fL Invalid Interpretation Code 35.1-43.9 [facility] Work Phone: [phone] Hematocrit Auto Volume Fraction (Bld) 38.5 % Invalid Interpretation Code 37-47 [facility] Work Phone: [phone] Hemoglobin mass conc (Bld) 12.8 g/dL Inval id Interpretation Code 12.0-15.0 [facility] Work Phone: [phone] Immature granulocytes #/vol (Bld) 0.200 % Invalid Interpretation Code 0.0-0.9 [facility] Work Phone: [phone] Lymphocytes Auto #/vol (Bld) 2.55 X10 3/UL Invalid Interpretation Code 0.83-4.51 [facility] Work Phone: [phone] Lymphocytes/100 WBC Auto (Bld) 25.7 % Invalid Interpretation Code 19-41 [facility] Work Phone: [phone] MCH Auto Entitic mass (RBC) 27.6 pg Invalid Interpretation Code 27.0-32.0 [facility] Work Phone: [phone] MCHC Auto mass conc (RBC) 33.2 G/GL Invali d Interpretation Code 32-36 [facility] Work Phone: [phone] MCV Auto Entitic volume (RBC) 83.0 fL Invalid Interpretation Code 81-99 [facility] Work Phone: [phone] Monocytes/100 WBC Auto (Bld) 6.0 % Invalid Interpretation Code 0-10 [facility] Work Phone: [phone] Neutrophils Auto #/vol (Bld) 6.5 X10 3/UL Invalid Interpretation Code 2.0-7.7 [facility] Work Phone: [phone] Neutrophils/100 WBC Auto (Bld) 65.1 % Invalid Interpretation Code 47-70 [facility] Work Phone: [phone] Platelet mean volume Gian-Blu Entitic volume (Bld) 10.7 fL Invalid Interpretation Code 6.2-12.0 [facility] Work Phone: [phone] Platelets Auto #/vol (Bld) 312 10*3/mm3 Inval id Interpretation Code 150-450 [facility] Work Phone: [phone] RBC Auto #/vol (Bld) 4.64 10*6/uL Invalid Interpretation Code 4.2-5.4 [facility] Work Phone: [phone] WBC Auto #/vol (Bld) 9.9 10*3/uL Invalid Interpretation Code 4.4-11.0 [facility] Work Phone: [phone] Lab Report: Basic Metabolic Profile (BMP)on 08-18-2017 Anion gap 4 molar conc 8 Invalid Interpretation Code 5-15 [facility] Work Phone: [phone] Calcium mass conc 8.0 mg/dL Low 8.5-10.1 [facility] Work Phone: [phone] Chloride molar conc 113 mmol/L High 98-107 [facility] Work Phone: [phone] CO2 ppres (BldV) 21.0 mmol/L Invalid Interpretation Code 21.0-32.0 [facility] Work Phone: [phone] Creatinine mass conc 0.55 mg/dL Invalid Interpretation Code 0.55-1.02 [facility] Work Phone: [phone] EST GFR - AA 162 mL/min Invalid Interpretation Code >60 [facility] Work Phone: [phone] GFR/1.73 sq M predicted among non-blacks MDRD vol rate/area (S/P/Bld) 134 mL/min/{1.73_m2} Invalid Interpretation Code >60 [facility] Work Phone: [phone] Glucose mass conc 237 mg/dL High 70-110 [facility] Work Phone: [phone] Potassium molar conc 3.5 mmol/L Invalid Interpretation Code 3.5-5.1 [facility] Work Phone: [phone] Sodium molar conc 142 mmol/L Invalid Interpretation Code 136-145 [facility] Work Phone: [phone] Urea nitrogen mass conc 9 mg/dL Invalid Interpretation Code 7-18 [facility] Work Phone: [phone] Urea nitrogen/Creatinine mass ratio 16.4 RATIO Invalid Interpretation Code 10-20 [facility] Work Phone: [phone] Lab Report: Bedside Glucoseo n 08-18-2017 Glucose mass conc 242 mg/dL High 70-110 [facility] Work Phone: [phone] Lab Report: CBC W/Diff, Auto matedon 08-18-2017 Basophils/100 WBC Auto (Bld) 0.2 % Invalid Interpretation Code 0-1 [facility] Work Phone: [phone] Eosinophils/100 WBC Auto (Bld) 2.3 % Invalid Interpretation Code 0-5 [facility] Work Phone: [phone] Erythrocyte distribution width Auto Ratio (RBC) 12.8 % Invalid Interpretation Code 11.6-14.6 [facility] Work Phone: [phone] Erythrocyte distribution width Auto Ratio (RBC) 38.0 fL Invalid Interpretation Code 35.1-43.9 [facility] Work Phone: [phone] Hematocrit Auto Volume Fraction (Bld) 37.2 % Invalid Interpretation Code 37-47 [facility] Work Phone: [phone] Hemoglobin mass conc (Bld) 12.5 g/dL Inval id Interpretation Code 12.0-15.0 [facility] Work Phone: [phone] Immature granulocytes #/vol (Bld) 0.200 % Invalid Interpretation Code 0.0-0.9 [facility] Work Phone: [phone] Lymphocytes Auto #/vol (Bld) 2.56 X10 3/UL Invalid Interpretation Code 0.83-4.51 [facility] Work Phone: [phone] Lymphocytes/100 WBC Auto (Bld) 27.2 % Invalid Interpretation Code 19-41 [facility] Work Phone: [phone] MCH Auto Entitic mass (RBC) 27.7 pg Invalid Interpretation Code 27.0-32.0 [facility] Work Phone: [phone] MCHC Auto mass conc (RBC) 33.6 G/GL Invali d Interpretation Code 32-36 [facility] Work Phone: [phone] MCV Auto Entitic volume (RBC) 82.3 fL Invalid Interpretation Code 81-99 [facility] Work Phone: [phone] Monocytes/100 WBC Auto (Bld) 8.7 % Invalid Interpretation Code 0-10 [facility] Work Phone: [phone] Neutrophils Auto #/vol (Bld) 5.8 X10 3/UL Invalid Interpretation Code 2.0-7.7 [facility] Work Phone: [phone] Neutrophils/100 WBC Auto (Bld) 61.4 % Invalid Interpretation Code 47-70 [facility] Work Phone: [phone] Platelet mean volume Gian-Blu Entitic volume (Bld) 11.4 fL Invalid Interpretation Code 6.2-12.0 [facility] Work Phone: [phone] Platelets Auto #/vol (Bld) 283 10*3/mm3 Inval id Interpretation Code 150-450 [facility] Work Phone: [phone] RBC Auto #/vol (Bld) 4.52 10*6/uL Invalid Interpretation Code 4.2-5.4 [facility] Work Phone: [phone] WBC Auto #/vol (Bld) 9.4 10*3/uL Invalid Interpretation Code 4.4-11.0 [facility] Work Phone: [phone] Microbiology: Culture, Wound on 08-18-2017 CUW Vancomycin $ 1 S Invalid Interpretation Code [facility] Work Phone: [phone] Vital Signs Date Time Vital Sign Value Performing Clinician Facility 04-25-2025 13:21-0400 Body height 165.[address] Rosalinda Becerra DO Work Phone: [facility] 04-25-2025 13:21-0400 Body mass index (BMI) [Ratio] 37.5 kg/m2 Dr. Rosalinda Becerra DO Work Phone: [facility] 04-25-2025 13:21-0400 Body weight 102.[address] Rosalinda Becerra DO Work Phone: [facility] 04-25-2025 13:21-0400 Diastolic blood pressure 78 mm[Hg] Dr. Rosalinda Becerra DO Work Phone: [facility] 04-25-2025 13:21-0400 Heart rate 99 /min Dr. Rosailnda Becerra DO Work Phone: [facility] 04-25-2025 13:21-0400 SaO2% (BldA) [Mass fraction] 98 % Dr. Rosalinda Becerra DO Work Phone: [facility] 04-25-2025 13:21-0400 Systolic blood pressure 113 mm[Hg] Dr. Rosalinda Becerra DO Work Phone: [facility] 04-05-2025 15:49-0400 Body height 165.[address] Rosalinda Becerra DO Work Phone: [facility] 04-05-2025 15:49-0400 Body mass index (BMI) [Ratio] 37.8 kg/m2 Dr. Rosalinda Becerra DO Work Phone: [facility] 04-05-2025 15:49-0400 Body temperature 97.1 [degF] Dr. Rosalinda Becerra DO Work Phone: [facility] 04-05-2025 15:49-0400 Body weight 102.[address] Rosalinda Becerra DO Work Phone: [facility] 04-05-2025 15:49-0400 Diastolic blood pressure 80 mm[Hg] Dr. Rosalinda Becerra DO Work Phone: [facility] 04-05-2025 15:49-0400 Heart rate 89 /min Dr. Rosalinda Becerra DO Work Phone: [facility] 04-05-2025 15:49-0400 Respiratory rate 16 /min Dr. Rosalinda Becerra DO Work Phone: [facility] 04-05-2025 15:49-0400 SaO2% (BldA) [Mass fraction] 97 % Dr. Rosalinda Becerra DO Work Phone: [facility] 04-05-2025 15:49-0400 Systolic blood pressure 124 mm[Hg] Dr. Rosalinda Becerra DO Work Phone: [facility] 11-24-2024 13:46-0500 Body height 165.1 cm Tamika Bradley MD Work Phone: [facility] 11-24-2024 13:46-0500 Body mass index (BMI) [Ratio] 38.11 kg/m2 Tamika Bradley MD Work Phone: [facility] 11-24-2024 13:46-0500 Body weight 103.87 kg Tamika Bradley MD Work Phone: [facility] 10-25-2024 10:44-0500 Body height 165.[address] Rosalinda Becerra DO Work Phone: [facility] 10-25-2024 10:44-0500 Body mass index (BMI) [Ratio] 37.7 kg/m2 Dr. Rosalinda Becerra DO Work Phone: [facility] 10-25-2024 10:44-0500 Body weight 102.[address] Rosalinda Becerra DO Work Phone: [facility] 10-25-2024 10:44-0500 Diastolic blood pressure 93 mm[Hg] Dr. Rosalinda Becerra DO Work Phone: [facility] 10-25-2024 10:44-0500 Heart rate 98 /min Dr. Rosalinda Becerra DO Work Phone: [facility] 10-25-2024 10:44-0500 SaO2% (BldA) [Mass fraction] 98 % Dr. Rosalinda Becerra DO Work Phone: [facility] 10-25-2024 10:44-0500 Systolic blood pressure 153 mm[Hg] Dr. Rosalinda Becerra DO Work Phone: [facility] 10-19-2024 15:17-0500 Body mass index (BMI) [Ratio] 38.1 kg/m2 Dr. Rosalinda Becerra DO Work Phone: [facility] 10-19-2024 15:17-0500 Body temperature 97.6 [degF] Dr. Rosalinda Becerra DO Work Phone: [facility] 10-19-2024 15:17-0500 Body weight 103.[address] Rosalinda Becerra DO Work Phone: [facility] 10-19-2024 15:17-0500 Diastolic blood pressure 70 mm[Hg] Dr. Rosalinda Becerra DO Work Phone: [facility] 10-19-2024 15:17-0500 Heart rate 99 /min Dr. Rosalinda Becerra DO Work Phone: [facility] 10-19-2024 15:17-0500 Respiratory rate 16 /min Dr. Rosalinda Becerra DO Work Phone: [facility] 10-19-2024 15:17-0500 SaO2% (BldA) [Mass fraction] 99 % Dr. Rosalinda Becerra DO Work Phone: [facility] 10-19-2024 15:17-0500 Systolic blood pressure 128 mm[Hg] Dr. Rosalinda Becerra DO Work Phone: [facility] 10-20-2023 13:20-0500 Body height 165.[address] Rosalinda Becerra Work Phone: [facility] 10-20-2023 13:20-0500 Body mass index (BMI) [Ratio] 37.7 kg/m2 Dr. Rosalinda Becerra Work Phone: [facility] 10-20-2023 13:20-0500 Body temperature 98.8 [degF] Dr. Rosalinda Becerra Work Phone: [facility] 10-20-2023 13:20-0500 Body weight 102.[address] Rosalinda Becerra Work Phone: [facility] 10-20-2023 13:20-0500 Diastolic blood pressure 86 mm[Hg] Dr. Rosalinda Becerra Work Phone: [facility] 10-20-2023 13:20-0500 Heart rate 100 /min Dr. Rosalinda Becerra Work Phone: [facility] 10-20-2023 13:20-0500 Respiratory rate 16 /min Dr. Rosalinda Becerra Work Phone: [facility] 10-20-2023 13:20-0500 SaO2% (BldA) [Mass fraction] 97 % Dr. Rosalinda Becerra Work Phone: [facility] 10-20-2023 13:20-0500 Systolic blood pressure 126 mm[Hg] Dr. Rosalinda Becerra Work Phone: [facility] 09-17-2023 13:12-0500 Body temperature 98.24 [degF] KAREEN JOAQUIN MD [facility] 09-17-2023 13:12-0500 Body weight 68.2 kg KAREEN JOAQUIN MD [facility] 09-17-2023 13:12-0500 Diastolic Blood Pressure Non-Invasive 74 mm[Hg] KAREEN JOAQUIN MD [facility] 09-17-2023 13:12-0500 Heart rate 87 /min KAREEN JOAQUIN MD [facility] 09-17-2023 13:12-0500 Respiratory rate 18 /min KAREEN JOAQUIN MD [facility] 09-17-2023 13:12-0500 Systolic Blood Pressure Non-Invasive 109 mm[Hg] KAREEN JOAQUIN MD [facility] 07-21-2023 13:05-0400 Body mass index (BMI) [Ratio] 37.3 kg/m2 Dr. Rosalinda Becerra Work Phone: [facility] 07-21-2023 13:05-0400 Body temperature 98.2 [degF] Dr. Rosalinda Becerra Work Phone: [facility] 07-21-2023 13:05-0400 Body weight 101.[address] Rosalinda Becerra Work Phone: [facility] 07-21-2023 13:05-0400 Diastolic blood pressure 76 mm[Hg] Dr. Rosalinda Becerra Work Phone: [facility] 07-21-2023 13:05-0400 Heart rate 72 /min Dr. Rosalinda Becerra Work Phone: [facility] 07-21-2023 13:05-0400 Respiratory rate 16 /min Dr. Rosalinda Becerra Work Phone: [facility] 07-21-2023 13:05-0400 SaO2% (BldA) [Mass fraction] 97 % Dr. Rosalinda Becerra Work Phone: [facility] 07-21-2023 13:05-0400 Systolic blood pressure 112 mm[Hg] Dr. Rosalinda Becerra Work Phone: [facility] 04-23-2023 16:43-0400 Body height 165.[address] Rosalinda Becerra Work Phone: [facility] 04-23-2023 16:43-0400 Body mass index (BMI) [Ratio] 38.6 kg/m2 Dr. Rosalinda Becerra Work Phone: [facility] 04-23-2023 16:43-0400 Body temperature 98.4 [degF] Dr. Rosalinda Becerra Work Phone: [facility] 04-23-2023 16:43-0400 Body weight 105.[address] Rosalinda Becerra Work Phone: [facility] 04-23-2023 16:43-0400 Diastolic blood pressure 78 mm[Hg] Dr. Rosalinda Becerra Work Phone: [facility] 04-23-2023 16:43-0400 Heart rate 106 /min Dr. Rosalinda Becerra Work Phone: [facility] 04-23-2023 16:43-0400 Respiratory rate 16 /min Dr. Rosalinda Becerra Work Phone: [facility] 04-23-2023 16:43-0400 SaO2% (BldA) [Mass fraction] 98 % Dr. Rosalinda Becerra Work Phone: [facility] 04-23-2023 16:43-0400 Systolic blood pressure 128 mm[Hg] Dr. Rosalinda Becerra Work Phone: [facility] 04-07-2023 13:14-0400 Body height 165.[address] Rosalinda Becerra Work Phone: [facility] 04-07-2023 13:14-0400 Body mass index (BMI) [Ratio] 37 kg/m2 Dr. Rosalinda Becerra Work Phone: [facility] 04-07-2023 13:14-0400 Body temperature 98.6 [degF] Dr. Rosalinda Becerra Work Phone: [facility] 04-07-2023 13:14-0400 Body weight 101.[address] Rosalinda Becerra Work Phone: [facility] 04-07-2023 13:14-0400 Diastolic blood pressure 78 mm[Hg] Dr. Rosalinda Becerra Work Phone: [facility] 04-07-2023 13:14-0400 Heart rate 102 /min Dr. Rosalinda Becerra Work Phone: [facility] 04-07-2023 13:14-0400 Respiratory rate 18 /min Dr. Rosalinda Becerra Work Phone: [facility] 04-07-2023 13:14-0400 SaO2% (BldA) [Mass fraction] 97 % Dr. Rosalinda Becerra Work Phone: [facility] 04-07-2023 13:14-0400 Systolic blood pressure 115 mm[Hg] Dr. Roaslinda Becerra Work Phone: [facility] 12-23-2022 14:12-0500 Body height 165.[address] Rosalinda Becerra Work Phone: [facility] 12-23-2022 14:12-0500 Body mass index (BMI) [Ratio] 36.1 kg/m2 Dr. Rosalinda Becerra Work Phone: [facility] 12-23-2022 14:12-0500 Body temperature 96.8 [degF] Dr. Rosalinda Becerra Work Phone: [facility] 12-23-2022 14:12-0500 Body weight 98.[address] Rosalinda Becerra Work Phone: [facility] 12-23-2022 14:12-0500 Diastolic blood pressure 101 mm[Hg] Dr. Rosalinda Becerra Work Phone: [facility] 12-23-2022 14:12-0500 Heart rate 107 /min Dr. Rosalinda Becerra Work Phone: [facility] 12-23-2022 14:12-0500 Respiratory rate 18 /min Dr. Rosalinda Becerra Work Phone: [facility] 12-23-2022 14:12-0500 SaO2% (BldA) [Mass fraction] 96 % Dr. Rosalinda Becerra Work Phone: [facility] 12-23-2022 14:12-0500 Systolic blood pressure 151 mm[Hg] Dr. Rosalinda Becerra Work Phone: [facility] 09-23-2022 14:14-0500 Body mass index (BMI) [Ratio] 37.3 kg/m2 Dr. Rosalinda Becerra Work Phone: [facility] 09-23-2022 14:14-0500 Body temperature 96 [degF] Dr. Rosalinda Becerra Work Phone: [facility] 09-23-2022 14:14-0500 Body weight 101.[address] Rosalinda Becerra Work Phone: [facility] 09-23-2022 14:14-0500 Diastolic blood pressure 82 mm[Hg] Dr. Rosalinda Becerra Work Phone: [facility] 09-23-2022 14:14-0500 Heart rate 104 /min Dr. Rosalinda Becerra Work Phone: [facility] 09-23-2022 14:14-0500 Respiratory rate 20 /min Dr. Rosalinda Becerra Work Phone: [facility] 09-23-2022 14:14-0500 SaO2% (BldA) [Mass fraction] 99 % Dr. Rosalinda Becerra Work Phone: [facility] 09-23-2022 14:14-0500 Systolic blood pressure 160 mm[Hg] Dr. Rosalinda Becerra Work Phone: [facility] 08-19-2017 07:35-0400 Body surface area Derived from formula 121.82 mL/min Oleksandr Fields MD [facility] Work Phone: 08-18-2017 06:59-0400 Body surface area Derived from formula 128.47 mL/min Oleksandr Fields MD [facility] Work Phone: Encounters Encounter Date Encounter Type Care Provider Facility Start: 05-16-2025 ambulatory Rosalinda Gastelum y:[facility] Start: 04-25-2025 End: 04-25-2025 Patient encounter procedure Misa MOORE -[facility] Work Phone: Start: 04-25-2025 End: 04-25-[address] Rosalinda Becerra DO Work Phone: [facility] Work Phone: Start: 04-11-2025 End: 04-11-[address] Rosalinda Becerra DO Work Phone: [facility] Work Phone: Start: 04-11-2025 End: 04-11-[address] Rosalinda Brody DO -Labor[facility] Start: 04-11-2025 End: 04-11-2025 ambulatory Rosalinda Becerra Facility:[facility] Start: 04-05-2025 End: 04-05-[address] Rosalinda Brody DO -[facility] Work Phone: Start: 04-05-2025 End: 04-05-[address] Rosalinda Becerra DO Work Phone: [facility] Work Phone: Start: 01-14-2025 Encounter for genera l adult medical examination without abnormal findings Tamika Bradley [facility] Start: 01-10-2025 ambulatory Rosalinda Brody [facility] Facilit y:[facility] Start: 01-03-2025 End: 01-03-[address] Rosalinda Becerra DO Work Phone: [facility] Work Phone: Start: 01-03-2025 End: 01-03-[address] Tamika Bradley MD [facility] Work Phone: Start: 01-03-2025 End: 01-03-2025 ambulatory Rosalinda Becerra Facility:[facility] Start: 12-23-2024 End: 12-23-[address] Tamika Bradley MD -[facility] Work Phone: Start: 12-23-2024 End: 12-23-2024 ambulatory Rosalinda Becerra Facility:[facility] Start: 11-25-2024 End: 11-25-2024 Telemedicine consultation with patient Tamika Bradley MD Work Phone: Sleep Medicine [facility] Comment on above: Hypersomnia (Primary Dx); Obesity with body mass index (BMI) of 30.0 to 39.9 Start: 11-25-2024 ambulatory TAMIKA BRADLEY Justennoah lity:[facility] Start: 10-25-2024 End: 10-25-2024 Patient encounter procedure Misa Cr [employer] -Laboratory, [facility] Start: 10-25-2024 End: 10-25-2024 Patient encounter procedure Misa Cr [employer] -[facility] Work Phone: Start: 10-25-2024 End: 10-25-2024 ambulatory Rosalinda Becerra Facility:[facility] Start: 10-25-2024 End: 10-25-2024 ambulatory Misa Cr Facility:[facility] Start: 10-19-2024 End: 10-19-[address] Rosalinda Brody DO -[facility] Work Phone: Start: 10-19-2024 End: 10-19-2024 ambulatory Rosalinda Becerra Facility:[facility] Start: 06-22-2024 End: 06-22-2024 ambulatory Ann WALL Facility:[facility] Start: 10-20-2023 End: 10-20-[address] Rosalinda Becerra Work Phone: [facility] Work Phone: Start: 10-20-2023 End: 10-20-[address] Rosalinda Becerra Work Phone: [facility] Work Phone: Start: 09-17-2023 End: 09-17-2023 Emergency department patient visit KAREEN JOAQUIN MD Facility:[facility] Start: 09-17-2023 End: 09-17-2023 Emergency department patient visit KAREEN JOAQUIN MD [facility] Start: 07-21-2023 End: 07-21-[address] Rosalinda Becerra Work Phone: [facility] Work Phone: Start: 04-28-2023 End: 04-28-[address] Rosalinda Becerra Work Phone: [facility] Work Phone: Start: 04-28-2023 End: 04-28-[address] Rosalinda Becerra Work Phone: [facility] Work Phone: Start: 04-23-2023 End: 04-23-[address] Rosalinda Becerra Work Phone: [facility] Work Phone: Start: 04-07-2023 End: 04-07-[address] Rosalinda Becerra Work Phone: [facility] Start: 04-04-2023 End: 04-04-[address] Rosalinda Becerra Work Phone: [facility] Work Phone: Start: 04-04-2023 End: 04-04-[address] Rosalinda Becerra Work Phone: [facility], [place] Start: 12-23-2022 End: 12-23-[address] Rosalinda Becerra Work Phone: [facility] Work Phone: Start: 12-23-2022 End: 12-23-[address] Rosalinda Becerra Work Phone: [facility] Start: 12-09-2022 End: 12-09-[address] Rosalinda Becerra Work Phone: [facility] Start: 09-23-2022 End: 09-23-[address] Rosalinda Becerra Work Phone: [facility] Procedures Date Procedure Procedure Detail Performing Clinician Start: 04-28-[address] Rosalinda Becerra Work Phone: Start: 02-18-2017 Decompression of median nerve KAREEN CHEUNG MD Comment on above: Left Decompression of median nerve KAREEN JOAQUIN MD Comment on above: RIGHT Esophagogastroduodenoscopy [place] JOAQUIN MD History of decompres chintan of median nerve History of carpal tunnel release of both wrists Dr. Rosalinda Becerra Work Phone: Comment on above: Dr. Richards Plan of Treatment Date Care Activity Detail Author Start: 04-05-2025 Patient referral [facility] Work Phone: Start: 10-19-2024 Patient referral [facility] Work Phone: Start: 07-04-2024 COVID-19 VACCINE ( season) COVID-19 VACCINE ( season) [facility] Start: 07-04-2024 Influenza vaccination INFLUENZA VACCINE (#1) [facility] Start: 2022 Lipid panel LIPID SCREENING [facility] Start: 2022 Screening for malignant neoplasm of breast MAMMOGRAM SCREENING DISCUSSION [facility] Start: 08-18-2017 End: 08-18-2017 Appointment [facility] Work Phone: Start: 2003 Screening for malignant neoplasm of cervix CERVICAL CANCER SCREENING DISCUSSION [facility] Start: 2001 Hepatitis B vaccination HEP B VACCINE (1 of 3 - 19+ 3-dose series) [facility] Start: 2001 Third diphtheria, tetanus and acellular pertussis (DTaP) vaccination TDAP (ADULT) [facility] Start: 1997 HIV screening HIV SCREENING DISCUSSION [facility] Start: 1988 PNEUMOCOCCAL VACCINE SERIES (1 of 2 - PCV) PNEUMOCOCCAL VACCINE SERIES (1 of 2 - PCV) [facility] Start: 1982 Hepatitis C screening HEPATITIS C VIRUS SCREENING [facility] Start: 1982 Potassium [Moles/volume] in Serum or Plasma POTASSIUM [facility] Start: 1982 Tetanus vaccination TETANUS [facility] Start: 1982 Thyroid stimulating hormone measurement TSH [facility] Basic metabolic 2008 panel with ionized calcium - Serum or Plasma [facility] Patient referral [facility] Work Phone: Thyroid stimulating hormone measurement [facility] Payers Date Payer Category Payer Self-pay [id number] 2024 Self-pay [id number] 2023 Unknown [id number] 2014 Unknown [employer] [id number] 2014-Present [address] [place] [address] [id number] 2014 Unknown [id number] 1982 Unknown [id number] 1982 Unknown [id number] Unknown [id number] Unknown [id number] Unknown [id number] Unknown [id number] Unknown [id number] Unknown [id number] Unknown [id number] Unknown [id number] Unknown [id number] Unknown [id number] Unknown [id number] Social History Date Type Detail Facility Start: 12-23-2022 End: 10-20-2023 Tobacco smoking status WYIS Unknown if ever smoked [facility] Start: 04-22-2019 Cigarettes [facility] Start: 1980 Sex Assigned At Female [facility] Start: 09-10-2017 Rare [facility] Start: 09-10-2017 None [facility] Start: 09-10-2017 Roommate [facility] Start: 09-17-2023 Tobacco smoking status Never s moked tobacco (finding) [facility] Sex Assigned At Sex [facility] Start: 06-22-2024 End: 11-24-2024 Tobacco smoking status NHIS Smokes tobacco daily [facility] History of tobacco use Cigarette Smoker [facility] Start: 11-24-2024 Tobacco use and exposure Smoke less tobacco non-user [facility] Start: 11-25-2024 Alcoholic beverage intake Current drinker of alcohol (finding) [facility] Start: 11-25-2024 History of Social function [facility] Start: 11-25-2024 Tobacco use panel [facility] Start: 11-24-[address] [facility] Start: 1980 Sex assigned at Not on file [facility] Start: 11-23-2024 Gender identity Identifies as female gender (finding) [facility] Start: 11-23-2024 Sexual orientation Homosexual (findi ng) [facility] Start: 01-14-2025 Sex Female (finding) [facility] Functional Status Date Assessment Result Facility 09-17-2023 Functional Status Standard Safet y ID band on, Allergy Band on 1 [facility] Mental Status Date Assessment Result Facility 09-17-2023 Mental Status Orientation Oriented x 4 [facility] Clinical Notes 09-17-2023 to 04-05-2025 Note Date & Type Note Facility 04-05-2025 Evaluation note Diagnosis Onset Date Resolution Constipation acute April 05 3:24pm Depression chronic April 05, 2025 3:24pm HTN (hypertension) chronic April 052024 3:24pm 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 Answers were put into visit during pre-charting. Will the patient be in the [facility] at the time of the telehealth visit? Yes if no, notify your manager training and development & clinical manager training and development of potential issue Confirm mode for the visit is [employer] Video visit: [employer] - confirm patients knows to login 15 min in advance. Yes I entered/confirmed pharmacy and updated on chart. Yes I reviewed allergies and marked reviewed on chart: Yes I reviewed tobacco use and updated on chart: Yes I reviewed medications and asked patient to have them available at time of visit. Additional medications not in med list added to list. Medications patient no longer taking removed from list. Yes Any refills needed (if yes, please queue up)? No Informed patient that if they do not receive link for their video visit within 15 minutes of scheduled appointment time, to contact that office directly to see if clinic is running late? Yes I asked for any home vitals listed in the visit notes such as weight, blood pressure, etc and entered them into vitals. If patient is on Oxygen I documented their most recent oxygen level in the [id number].Yes Sleep Patients Only I completed the flowsheets for the [place] Sleepines Scale and FOSQ. Yes * Tamika Bradley MD - 11/25/2024 10:30 AM EST I have had the pleasure of seeing Ms. Hallie Avila for evaluation at the [facility] clinic today. Impression: Snoring, Sleepiness ? due to obstructive sleep apnea. She has several risk factors for sleep disordered breathing. I had a long discussion with the patient about the nature of the condition and treatment options. Obesity RLS, mild does not need pharamacologcal therapy at present. Driving Issues: none Plan: Diagnostic sleep study. The patient was given instructions for the sleep study and directions to the sleep laboratory. Will be done at [facility]. We discussed treatment options and she is willing to consider CPAP treatment. If the study is positive for obstructive sleep apnea, we will therefore proceed with CPAP therapy. We discussed good sleep hygiene habits. 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 A handout on drowsy driving tips was given to the patient. Discussed importance of weight loss to sleep apnea treatment. Follow up in clinic after the sleep studies. At that time we will discuss her study results and tolerance of therapy if indicated. HPI: Subjective Chief complaint: suspected LATHA, snoring, and hypersomnia. Previous sleep study: No Positive airway pressure (PAP) device use: She goes to bed at 0000 on weekdays and 0300 on weekends. She awakens at 0600 on weekdays and 1430 on weekends. She estimates a total sleep time of 4 hours each night. She falls asleep in 45 minutes,and awakens 3 times per night. Naps: Yes ( [7] per week for [90] min). Abnormal work hours (outside6 am-7 pm): Yes. Sleep disordered breathing symptoms (last month) Loud Snoring 5-7 times a week Snorting or gasping Don't know Breathing stops, chokes, or struggles Don't know Sleepiness and fatigue frequency (last month) Tired upon awakening 5-7 times a week Very sleepy during the day 3-4 times a week Involuntarialy falling asleep Never Tired or Fatigued 5-7 times a week Fallen asleep driving Never Insomnia severity (last month). Currently having any of the following: Yes Difficulty falling asleep Severe Difficulty staying asleep Moderate Problems waking up too early Moderate Abnormal behaviors frequency (last month) Problems disturb bed partner s sleep Never Unusual behaviors during sleep 3-4 times a week sleep talking no sleep walking Kicking while asleep Don't know Acting out dreams Rarely (less than once a week) Violent behaviors while asleep Never Hypnagogic hallucinations Never Sleep paralysis Never Cataplexy (ever experienced) No Restless Leg Symptoms (Ever had these symptoms) Unpleasant sensations in legs and urge to move Yes Feelings in your legs occur mainly or only at rest Yes Feelings in your legs improve with movement Yes Feelings worse in the evening or night than in the morning Yes Past Medical History: Diagnosis Date Anxiety Depression Diabetes mellitus Type 2 Essential hypertension, benign Fibromyalgia GERD (gastroesophageal reflux disease) H/O seasonal allergies Hyperlipidemia Hypothyroidism Obesity Past Surgical History: Procedure Laterality Date LEEP PROCEDURE RELEASE CARPAL TUNNEL Bilateral RELEASE TRIGGER FINGER WISDOM TEETH EXTRACTION Allergies Allergen Reactions Clindamycin Hives HIVES Morphine Diarrhea and Nausea and Vomiting N/V Current Outpatient Medications Medication Instructions amLODIPine 5 MG tablet cholecalciferol 125 MCG (5000 UT) tablet DULoxetine [address] Particles capsule DR hydroCHLOROthiazide 12.5 MG tablet Insulin NPH Isophane & Regular (HUMULIN 70/30 KWIKPEN IN) Levothyroxine 75 MCG tablet lisinopril 30 MG tablet medroxyprogesterone 104 MG/0.65ML Suspension Prefilled Syringe Melatonin 10 MG capsule Meloxicam 15 MG Tab Dispersible Pantoprazole Sodium (pantoprazole, [id number],) 40 MG tablet Rosuvastatin 20 MG tablet Semaglutide, 2 MG/DOSE, 8 MG/3ML Solution Pen-injector Social History Tobacco Use Smoking status: Every Day Types: Cigarettes Smokeless tobacco: Never Vaping Use Vaping status: Never Used Substance Use Topics Alcohol use: Yes Comment: occ Drug use: Never Caffeine intake is [ 1 ] drinks per day, up until [ 6 ] hours before bed. Family History Problem Relation Age of Onset Coronary Artery Disease Mother Hypertension Mother Diabetes Mother Thyroid Disease Mother Lipid Disorder Mother Other - Specify Father Skin Cancer Hypertension Father Diabetes Father Hypertension Maternal Grandmother Diabetes Maternal Grandmother Known family history of sleep disorders: LATHA in father Review of Systems Weight has had [ 40 lbs gained], [ lbs lost] in the last year. Patient reported positive symptoms in the past month include: Heartburn, Depression, Anxiety All other systems are negative. Physical Exam Ht 1.651 m (5' 5) Wt 103.9 kg (229 lb) BMI 38.11 kg/m Smoking Status Every Day Body mass index is 38.11 kg/m . Appears the stated age Not in distress, answered questions appropriately, affect is normal Laboratory and others: Previous medical records from [facility] were reviewed. Serum Chemistry:No results found for: SODIUM, POTASSIUM, CHLORIDE, CO2, BUN, CREATSERUM, GLUCOSE HBA1c: No results found for: HGBA1C Thyroid function tests:No results found for: TSH, MJP38SEA, CYJ29XXM, TSHBASELINE, TSHULTRASEN, TSHRFT4 Lipid profile: No results found for: CHOLESTEROL, TRIG, HDL, LDLCALC No results found for: FERRITIN ECHO: No results found for this or any previous visit. Diagnostic Review: ESS 8 FOSQ 14.5 KRISTEN 19 IRLS 9 MVAP 0.618 [place] Sleepiness Score (ESS) > 10 indicates daytime sleepiness but should not be the sole criteria for sleepiness. FOSQ-10 < 17.9 indicates decreased of quality of life due to impact sleepiness. IRLS score interpretation: 1-10: mild 11-20: moderate 21-30: severe 31-40: very severe Total KRISTEN score interpretation: 0-7 = No clinically significant insomnia 8-14 = Subthreshold insomnia 15-21 = Clinical insomnia (moderate severity) 22-28 = Clinical insomnia (severe) This telehealth visit is a real time video visit communication. During the scheduling process, thispatient has verbally consented to the submission of Telehealth visits and the patient is aware of the risks, benefits, and possible coinsurance/copay costs. Patient Location: Home [facility] Instructions* Patient Instructions* Tamika Bradley MD - 11/25/2024 10:30 AM EST Images from the original note were not included. Patient information on the evaluation Procedure for sleep apnea: You will have 2 appointments scheduled today at the front office. The first is your diagnostic sleep study to see if you have obstructive sleep apnea. THE SLEEP STUDY IS DONE AT THE SLEEP LABORATORY at [place]. You will be provided with directions to the sleep laboratory as well as instructions. The second appointment is your follow up visit with the sleep physician IN THE SLEEP CLINIC to discuss the results and treatment options, if appropriate. After your sleep study is done we will inform you about the results via [employer]. You will get a notification via email that a new result is available. Someone will call you only if you DO NOT have anactive [employer] account. If the sleep study shows significant sleep apnea, a CPAP machine will be ordered for you (or another form of treatment) if this was decided during your initial visit. In some instances, depending on the result of your test, a titration study may have to be done in the sleep laboratory prior to ordering the CPAP machine. 3. Patients who are diagnosed to have obstructive sleep apnea: A home equipment company of your choice will contact you to set you up with a CPAP machine, if thisis the therapy agreed upon during your initial visit. Please inform the home care company if you want to do the CPAP setup in person instead of the machine being mailed to you. After you receive CPAP, you have 30 days to change masks as many times as needed until you find oneyou are comfortable with. The home equipment company will be more than happy to assist you with this. If you are unhappy with your mask, contact them to set up an appointment to try a different one. Please bring your CPAP, the mask and all supplies including the electrical cord with you to all your follow up appointments with the sleep physician Please keep trying to use your CPAP until you have seen the sleep physician in follow up as a lot of the problems patients have with CPAP can be addressed and corrected by your sleep physician. Medicare and some private insurance requires that you are compliant with CPAP therapy in order to keep your machine. During the first 3 months, you must use your CPAP for greater than or equal to 4 hours per night on 70% of nights during a consecutive 30 day period. We must also see you back in theoffice days after you receive your CPAP Contact Information: [facility]: [phone] Please note that if you need to cancel your follow up appointment, you need to call [phone] tore-schedule the appointment. Obstructive Sleep Apnea This is a link to an educational video about Obstructive Sleep Apnea: https://www.Outspark.com/watch?v=6bqTOfwvWhk What are the risk factors for Obstructive Sleep Apnea (LATHA)? Obesity Snoring Daytime sleepiness Increasing age Male gender Taking sedating medications Alcohol use Hypertension Stroke Diabetes Smoking What is LATHA? People with LATHA experience recurrent episodes during sleep when their throat closes or significantly narrows and they cannot inhale air into their lungs. This happens because the muscles that normally hold the throat open during wakefulness relax during sleep and allow it to narrow (Figure 1 ). When the muscles relax too much, trying to inhale can cause the throat to completely close and air cannot pass at all for at least 10 seconds. This is an obstructive apnea (Figure 2). An obstructive hypopnea occurs when the throat is partially closed for at least 10 seconds and airflow is decreasedso much that oxygen in the blood starts to be fall (Figure 3). LATHA is measured by how many apneas and hypopneas we have per hour. This is called an Apnea HypopneaIndex (AHI). It is considered excessive to have more than 5 apneas or hypopneas per hour as this can be extremely disruptive to sleep and have significant effects on our health and well being. How does LATHA affect me? LATHA goes beyond affecting just our quality of sleep. It interferes with many other systems of our body. Increase in blood pressure Worsened control of diabetes Daytime sleepiness and fatigue Irritability Difficulty concentrating or remembering facts Difficulty losing weight Swelling in the legs Frequent awakenings to urinate Increased risk of stroke Increased risk of irregular heart rhythm Increased risk for cardiovascular disease Decreased sexual drive Morning headaches Increased risk of motor vehicle accident How is LATHA treated? The first line of treatment for LATHA is continuous positive airway pressure (CPAP). A CPAP device provides air though a mask that fits over your nose or mouth and nose. The CPAP provides enough airflow to prevent the airway from collapsing when sleeping. This air can be humidified for comfort. Newermasks fit comfortably over the nasal opening rather than over the nose. It is important that CPAP is used regularly each night for optimal results. Patients should notice improvement in sleepiness within the first week or two. Several second line therapies exist for LATHA. Behavioral therapy for LATHA includes weight loss and positional therapy which is avoidance of sleeping on ones back. Significant improvement in LATHA can occur with as little as 10% weight loss. Dental devices that hold the lower jaw or tongue forward during sleep can also relieve LATHA. These devices are not always as effective as CPAP but are preferred by some patients. Surgical procedures can reshape structures in the upper airways or surgically reposition the jaw, and may be helpful in some patients. It is often hard to predict how effective a surgical treatment will be in reducing or eliminating sleep apnea. Additional Information The [facility] Sleep Medicine Program (www.medicalcenter.[facility]/go/sleepmedicine) [place] Academy of Sleep Medicine (www.aasmnet.org) National Sleep Foundation (www.sleepfoundation.org) [place] Sleep Apnea Association (www.sleepapnea.org) National Heart, Lung, and Blood [place] (www.nhlbi.nih.gov) [employer]ptoDate (www.uptodate.com/patients) Drowsy Driving Tips These suggestions will help prevent you from the risk of drowsy driving. 1. If you feel tired or drowsy do not drive. Sleepiness is a major cause of motor vehicle accidentsand accounts for 40% of all fatal crashes reported on the [facility]. No matter how much you think you can control sleepiness, you can't. 2. Ensure you follow your doctor's advice about the treatment for your sleep disorder. For example,if you have sleep apnea and use CPAP, ensure you use it fully the night before your trip. 3. Get a good night's sleep before driving. Do not reduce your sleep time if you plan a long drive the next day. Get to bed early and do not stay up late packing. 4. Avoid alcohol both the night before your trip and the during your trip. Alcohol will disrupt sleep and make you more tired the next day. Sleepiness and alcohol are additive in increasing impairment of your driving ability. 5. Avoid any sedative medications, including sedative antihistamines that are often contained in cold or allergy medications, the night before you drive as they may have long lasting effects the nextday. 6. Travel during non-sleeping hours. Accidents due to sleepiness are more common during the nighttime hours. 7. If sleepy, stop and rest. Drink coffee, walk around or have a brief nap in your car if you are sleepy. Have a 10-15 minute break after every [address] 8[address] with a newcomer hostess. Share the driving. Relax in the back seat until it is your time to sharethe driving again. YOU CAN FIND MORE INFORMATION BY VISITING OUR WEBPAGE: www.medicalcenter.[facility]/go/sleepmedicine documented in this encounterMem[facility] Miscellaneous Notes* Addendum Note - Tamika Bradley MD - 11/25/2024 10:30 AM ESTAddended by: TAMIKA BRADLEY on: 11/25/2024 01:22 PM Modules accepted: Level of Service documented in [facility]OSF[facility] Note* Addendum Note - Tamika Bradley MD - 11/25/2024 10:30 AM ESTAddended by: TAMIKA BRADLEY on: 11/25/2024 01:22 PM Modules accepted: Level of Service [facility]12-17-2024 Evaluation note* Diagnosis Onset Date Resolution Status Admit Date Sleep apnea in adult acute Dece mber 2023 3:06pm Depression chronic October 19, 2024 3:06pm Diabetes chronic October 19, 2024 3:06pm Diabetes chronic October 25, 2024 10:43am Fatigue chronic October 25, 2024 10:43am HTN (hypertension) chronic [facility] er 2023 10:43am Hyperlipidemia chronic October 042023 10:43am Hypothyroidism chronic October 042023 10:43am Microalbuminuria chronic October 25, 2024 10:43am Obesity chronic October 25, 2024 10:43am [facility] Work Phone: 1(167) 301-330011-15-2023 Hospital Discharge instructions Patient Education 09/17/2023 15:14:45 After a Concussion After a Concussion Awaken to check alertness as often as the health care provider suggests. If you had a mild concussion (a head injury), watch closely for signs of problems during the first 48 hours after the injury. Follow the doctor s advice about recovering at home. Use the tips on thishandout as a guide. Note: You should not be left alone after a concussion. If no adult can stay with the injured person, let the doctor know. Have someone call 911 or your emergency number if you can't fully wake up or have a seizures or convulsions. The first 48 hours Don t take medicine unless approved by your healthcare provider. Try placing a cold, damp cloth on your head to help relieve a headache. Ask the doctor before using any medicines. Don't drink alcohol or take sedatives or medicines that make you sleepy. Don't return to sports or any activity that could cause you to hit your head until all symptoms aregone and you have been cleared by your doctor. A second head injury before fully recovering from the first one can lead to serious brain injury. Don't do activities that need a lot of concentration or a lot of attention. This will allow your brain to rest and heal more quickly. Return to regular physical and mental activity as directed and approved by your healthcare provider. Tips about sleeping For the first day or two, it may be best not to sleep for long periods of time without being checked for alertness. Follow the doctor s instructions. ? Have someone wake you every ____ hours for the next ____ hours. He or she should ask you questions to check for alertness. ? OK to sleep through the night. When to call the healthcare provider If you notice any of the following, call the healthcare provider: Vomiting. Some vomiting is common, but tell the provider about any vomiting. Clear or bloody drainage from the nose or ear Constant drowsiness or difficulty in waking up Confusion or memory loss Blurred vision or any vision changes Inability to walk or talk normally Increased weakness or problems with coordination Constant, unrelieved headache that becomes more severe Changes in behavior or personality High-pitched crying in infants Signs of stroke such as paralysis of parts of the body Uncrontrolled movements suggesting a seizure 7984-3748 [employer]. [address] [place] [address], [place] [address]. All rights reserved. This information is not intended as a substitute for professional medical care. Always follow yourhealthcare professional's instructions. 09/17/2023 15:14:39 Head Injury (Adult) Head Injury (Adult) You have a head injury. It does not appear serious at this time. But symptoms of a more serious problem, such as a mild brain injury (concussion) or bruising or bleeding in the brain, may appear later. For this reason, you or someone caring for you will need to watch for the symptoms listed below. Once you re home, also be sure to follow any care instructions you re given. Home care Watch for the following symptoms Seek emergency medical care if you have any of these symptoms over the next hours to days: Headache Nausea or vomiting Dizziness Sensitivity to light or noise Unusual sleepiness or grogginess Trouble falling asleep Personality changes Vision changes Memory loss Confusion Trouble walking or clumsiness Loss of consciousness (even for a short time) Inability to be awakened Stiff neck Weakness or numbness in any part of the body Seizures General care If you were prescribed medicines for pain, use them as directed. Note: Don t take other medicines for pain without talking to your provider first. To help reduce swelling and pain, apply a cold source to the injured area for up to 20 minutes at atime. Do this as often as directed. Use a cold pack or bag of ice wrapped in a thin towel. Never apply a cold source directly to the skin. If you have cuts or scrapes as a result of your head injury, care for them as directed. For the next 24 hours (or longer, if instructed): oDon t drink alcohol or use sedatives or other medicines that make you sleepy. oDon t drive or operate machinery. oDon t do anything strenuous, such as heavy lifting or straining. oLimit tasks that require concentration. This includes reading, using a smartphone or computer, watching TV, and playing video games. oDon t return to sports or other activities that could result in another head injury. Follow-up care Follow up with your healthcare provider, or as directed. If imaging tests were done, they will be reviewed by a doctor. You will be told the results and any new findings that may affect your care. When to seek medical advice Call your healthcare provider right away if any of these occur: Pain doesn t get better or worsens New or increased swelling or bruising Fever of 100.4 F (38 C) or higher, or as directed by your provider Increased redness, warmth, drainage, or bleeding from the injured area Fluid drainage or bleeding from the nose or ears Any depression or bony abnormality in the injured area Persistent confusion or lethargy Bruising behind the ears or bruising around the eyes [id number] [employer]. [address] [place] [address]. All rights reserved. This information is not intended as a substitute for professional medical care. Always follow yourhealthcare professional's instructions. Follow Up Care 09/17/2023 13:01:36 With:TERRI GOLDMAN Address: [address] [place] [address] [place] [address]- When:2-4 days With:ROSALINDA BECERRA DO Address: [facility] [address] [phone] [phone] When:2-4 days [facility] 11-15-2023 Emergency department Discharge summary Discharge Instructions Thank you for allowing [place] to assist you with your healthcare needs. The following is importantdischarge information regarding your hospital visit. Diagnosis from Today's Visit Closed head injury Contusion of left knee Fall What to Do Next Instructions from Your Care Team Please follow up with Terri. Take ibuprofen and Tylenol as needed for headache. Avoid repeat head injury. No qualifying data available. Post Acute Orders No qualifying data available. You Need to Schedule the Following Appointments Follow Up with TERRI GOLDMAN When Within 2-4 days Where: [address] [place] [address] [place] [address]- Follow Up with ROSALINDA BECERRA DO When Within 2-4 days Where: [facility] [address] [place] [phone] Allergies clindamycin morphine Medications Please ask your primary doctor or pharmacist before taking any other medication not listed, including over the counter drugs, herbal medications, vitamins and or supplements as they may interact withyour home medications. What How Much When Instructions Last Dose Unchanged acetaminophen (Tylenol 325 mg oral tablet) 2 tab(s) by mouth Every 4 hours as needed for for pain Unchanged ibuprofen (ibuprofen 200 mg oral tablet) 2 tab(s) by mouth Every 4 hours as needed for for pain Unchanged insulin glargine (Lantus) 54 unit(s) Subcutaneous Unchanged levothyroxine (levothyroxine 75 mcg (0.075 mg) oral tablet) 1 tab(s) by mouth Once a day before a meal Unchanged lisinopril (lisinopril 10 mg oral tablet) 1 tab(s) by mouth Every day Unchanged LORazepam (LORazepam 0.5 mg oral tablet) 1 tab(s) by mouth Three (3) times a day as needed for for anxiety Unchanged medroxyPROGESTERone (Depo-Provera Contraceptive) 150 Milligram Intramuscular Once Unchanged pantoprazole (pantoprazole 40 mg oral granule, enteric coated) 3 Each by mouth Once a day Unchanged PARoxetine (Paxil 10 mg oral tablet) 1 tab(s) by mouth Once a day Unchanged pioglitazone (Actos 30 mg oral tablet) 1 tab(s) by mouth Once a day Unchanged pravastatin (pravastatin 80 mg oral tablet) 1 tab(s) by mouth Once a day Please take this list to your next doctor s visit. Bring all medications you take, including over the counter medications, herbals and other supplements with you to your doctor s visit. Patients and families are reminded to discard old lists and to update any records with all medication providers or retail pharmacies. Education Materials After a Concussion Awaken to check alertness as often as the health care provider suggests. If you had a mild concussion (a head injury), watch closely for signs of problems during the first 48 hours after the injury. Follow the doctor s advice about recovering at home. Use the tips on thishandout as a guide. Note: You should not be left alone after a concussion. If no adult can stay with the injured person, let the doctor know. Have someone call 911 or your emergency number if you can't fully wake up or have a seizures or convulsions. The first 48 hours Don t take medicine unless approved by your healthcare provider. Try placing a cold, damp cloth on your head to help relieve a headache. Ask the doctor before using any medicines. Don't drink alcohol or take sedatives or medicines that make you sleepy. Don't return to sports or any activity that could cause you to hit your head until all symptoms aregone and you have been cleared by your doctor. A second head injury before fully recovering from the first one can lead to serious brain injury. Don't do activities that need a lot of concentration or a lot of attention. This will allow your brain to rest and heal more quickly. Return to regular physical and mental activity as directed and approved by your healthcare provider. Tips about sleeping For the first day or two, it may be best not to sleep for long periods of time without being checked for alertness. Follow the doctor s instructions. ? Have someone wake you every ____ hours for the next ____ hours. He or she should ask you questions to check for alertness. ? OK to sleep through the night. When to call the healthcare provider If you notice any of the following, call the healthcare provider: Vomiting. Some vomiting is common, but tell the provider about any vomiting. Clear or bloody drainage from the nose or ear Constant drowsiness or difficulty in waking up Confusion or memory loss Blurred vision or any vision changes Inability to walk or talk normally Increased weakness or problems with coordination Constant, unrelieved headache that becomes more severe Changes in behavior or personality High-pitched crying in infants Signs of stroke such as paralysis of parts of the body Uncrontrolled movements suggesting a seizure [id number] [employer]. [address] [place], [place] [id number]. All rights reserved. This information is not intended as a substitute for professional medical care. Always follow yourhealthcare professional's instructions. Head Injury (Adult) You have a head injury. It does not appear serious at this time. But symptoms of a more serious problem, such as a mild brain injury (concussion) or bruising or bleeding in the brain, may appear later. For this reason, you or someone caring for you will need to watch for the symptoms listed below. Once you re home, also be sure to follow any care instructions you re given. Home care Watch for the following symptoms Seek emergency medical care if you have any of these symptoms over the next hours to days: Headache Nausea or vomiting Dizziness Sensitivity to light or noise Unusual sleepiness or grogginess Trouble falling asleep Personality changes Vision changes Memory loss Confusion Trouble walking or clumsiness Loss of consciousness (even for a short time) Inability to be awakened Stiff neck Weakness or numbness in any part of the body Seizures General care If you were prescribed medicines for pain, use them as directed. Note: Don t take other medicines for pain without talking to your provider first. To help reduce swelling and pain, apply a cold source to the injured area for up to 20 minutes at atime. Do this as often as directed. Use a cold pack or bag of ice wrapped in a thin towel. Never apply a cold source directly to the skin. If you have cuts or scrapes as a result of your head injury, care for them as directed. For the next 24 hours (or longer, if instructed): oDon t drink alcohol or use sedatives or other medicines that make you sleepy. oDon t drive or operate machinery. oDon t do anything strenuous, such as heavy lifting or straining. oLimit tasks that require concentration. This includes reading, using a smartphone or computer, watching TV, and playing video games. oDon t return to sports or other activities that could result in another head injury. Follow-up care Follow up with your healthcare provider, or as directed. If imaging tests were done, they will be reviewed by a doctor. You will be told the results and any new findings that may affect your care. When to seek medical advice Call your healthcare provider right away if any of these occur: Pain doesn t get better or worsens New or increased swelling or bruising Fever of 100.4 F (38 C) or higher, or as directed by your provider Increased redness, warmth, drainage, or bleeding from the injured area Fluid drainage or bleeding from the nose or ears Any depression or bony abnormality in the injured area Persistent confusion or lethargy Bruising behind the ears or bruising around the eyes [id number] [employer]. [address] [place] [address]. All rights reserved. This information is not intended as a substitute for professional medical care. Always follow yourhealthcare professional's instructions. Additional Information VACCINATE! IT SAVES LIVES! Members of the community who have not yet received the COVID-19 vaccine and would like to receive it can visit one of [facility] vaccine clinics. There are many vaccine clinic locations within the [facility]. For locations and available times, please visit www.gettheshot.coronavirus.[place].gov/. It is important to note that some COVID mobile vaccine clinics are held outdoors and may be canceled in rainy or stormy conditions. To learn more about pediatric vaccinations (ages 5-11), we invite you to visit the [facility] webpage. https://www.[facility].org/pages/5154-Tffxp-Tmmjwtuwsyn-Icanigynqf-Apolx-Cdh stions.htmlTo learn more about the COVID-19 vaccine, we invite you to visit the CDC website for a list of frequently asked questions. https://www.cdc.gov/coronavirus/2019-ncov/vaccines/faq.html [facility] Patient Portal Access Instructions: Stay connected with your healthcare team and access your personal medical information anytime with the [facility] Patient Portal. If you would like a full copy of your medical records please contact the [facility] Medical Records Department Friday through Friday between 8a.m. and 4:30p.m. Please follow the directions below to access the portal: 1.Access the email account you provided upon registration to the [facility].2.Look for an invitation email from [facility].3.Open the email and access the invitation link: Accept Invitation to [facility]4.Fill in the required burton to create your account. Sign into [email or web address] with your username and password that you created in the above steps to stay up to date. You can then view a summary of results, a summary of your visits, and the ability to download your summaries to your computer or send the information securely to a physician. Remember that your healthcare information is confidential, so carefully consider who you will allow to register on the [facility] Patient Portal for access to your information. You can also access the [facility] Patient Portal on the e-SENS. Simply click on Health Records under [employer] and then click on the [employer] logo. HOW TO SAFELY DISPOSE OF PRESCRIPTION MEDICATIONS Please use one of the following methods to safely dispose of your unused medications. 1.Use a drug disposal kit: the drug disposal pouch allows you to safely discard your old and unuseddrugs. Ask your nurse to give you one when you are discharged.2.Visit a local take-back location: Many local pharmacies and police departments have programs that collect old and unwanted prescriptiondrugs. Call your local pharmacy or go to http://bit.Newforma/2R7St9d to find one close to you.3.Make use of household items: Use cat litter or old coffee grounds to dispose medications if other options arenot available. Mix your drugs with these household products, seal them in an airtight container andthrow it into the garbage. Call [facility]: [phone] to be sure your drugs can be disposed of in this way. Some medicines may require a different approach.4.Never flush your medications down the toilet. IF YOU HAVE BEEN PRESCRIBED AN OPIOIDS FOR PAIN If you have been prescribed an opioid (such as hydrocodone, oxycodone or morphine), it is critical to understand the possible side effects and risks of opioid pain medications. Even when taken as directed, opioids can have several side effects including: Tolerance, meaning you might need to take more of a medication for the same pain relief. Nausea, vomiting and/or constipation. Sleepiness, dizziness, dry mouth, confusion, depression or itching. Physical dependence, meaning you have withdrawal symptoms when a medication is stopped ? this can develop within a few days. KNOW YOUR RESPONSIBILITIES It is important to know exactly how much and how often to take the opioid pain medications you are prescribed. Never take opioids in higher amounts or more often than prescribed. Do not combine opioids with alcohol or other drugs that cause drowsiness, such as benzodiazepines, also known as benzos,including diazepam and alprazolam, muscle relaxants or sleep aids. Never sell or share prescriptionopioids. This is illegal. Store opioids in a secure place and out of reach of others (including children, family, friends and visitors). The last page(s) of this document has been signed and retained as a CHART COPY Signatures Patient Education Materials After a Concussion Head Injury (Adult) Medication Leaflets My discharge plan and instructions have been reviewed and explained to me and I,HALLIE AVILA M understand my current condition and have read and understand these discharge instructions. I have received a written copy of the plan/instructions. If I have questions, I am aware that I should contact my doctor. Patient/Environmental Studies Faculty Member Signature: Date/Time: Relationship to Patient: Witness Name/Signature: Date/Time: [facility]11-15-2023 Note ORIGINAL EXAMINATION: THREE XRAY VIEWS OF THE LEFT KNEE 09/17/2023 2:56 pm COMPARISON: None. HISTORY: ORDERING SYSTEM PROVIDED HISTORY: Reason for Exam: Fall, pain FINDINGS: No acute fracture or dislocation. No aggressive osseous lesion, joint effusion, or radiopaque foreign body. Mild degenerative changes. IMPRESSION: No acute osseous abnormality. Interpreted by: Kenna Weber MD Preliminary Report By: Kenna Weber MD Electronically signed By Kenna Weber MD Dictated Date: 09/17/2023 3:08:36 PM Prelim Date: 09/17/2023 3:09:28 PM Sign Date: 09/17/2023 3:09:28 PM Ordering Provider: [facility]11-15-2023 Note ORIGINAL HISTORY: Fall COMPARISON: No TECHNIQUE: Routine non-contrast head CT with sagittal and coronal reconstructions This exam was performed according to our departmental dose optimization program, and includes the following measures where applicable: automated exposure control, adjustment of the mAs and/or kVp according to patient size and/or exam, and an iterative reconstruction algorithm. FINDINGS: The ventricles and sulci are normal in size and configuration. There are no abnormal intra or extra-axial fluid collections. Shelton-white matter 2 D 3 T seen is maintained. The calvaria and the bones of the base of the skull are intact. There is chronic left maxillary sinus disease. IMPRESSION: Normal examination of the brain. Interpreted by: Oleksandr Arizmendi MD Preliminary Report By: Oleksandr Arizmendi MD Electronically signed By Oleksandr Arizmendi MD Dictated Date: 09/17/2023 3:06:18 PM Prelim Date: 09/17/2023 3:07:49 PM Sign Date: 09/17/2023 3:07:49 PM [facility] No data available for this section [facility] Evaluation note* Diagnosis Onset Date Resolution Status Diabetes chronic HTN (hypertension) chronic Hypothyroidism chronic Obesity chronic Trigger finger of left thumb acute Trigger finger of right thumb acute Trigger finger, left index finger acute Trigger finger, left ring finger acute Trigger finger, right index finger acute Trigger finger, right ring finger acute Pain of hand noneactive Diabetes chronic HTN (hypertension) chronic Hypothyroidism chronic Obesity [facility] Work Phone: Evaluation note* Diagnosis Onset Date Resolution Status Diabetes chronic HTN (hypertension) chronic Hypothyroidism chronic Obesity chronic Diabetes chronic HTN (hypertension) chronic Hypothyroidism chronic Microalbuminuria chronic Obesity [facility] Work Phone: evaluation note* Diagnosis Onset Date Resolution Status Diabetes chronic HTN (hypertension) chronic Hypothyroidism chronic Microalbuminuria chronic Obesity chronic Diabetes mellitus, type II c hronic Fibromyalgia chronic HTN (hypertension) chronic Hypothyroidism [facility] Work Phone: evaluation note* Diagnosis Onset Date Resolution Status Diabetes chronic HTN (hypertension) chronic Hypothyroidism chronic Microalbuminuria chronic Obesity chronic Fatigue acute Diabetes chronic HTN (hypertension) chronic Hypothyroidism chronic Obesity [facility] Work Phone: evaluation note* Diagnosis Hypersomnia- Primary Hypersomnia, unspecified Obesity with body mass index (BMI) of 30.0 to 39.9 documented in this encounter [facility] Diagnosis Onset Date Resolution Status Admit Date HTN (hypertension) chronic April 052024 3:24pm 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 April 05, 2025 3:24pm [facility] Work Phone: Hospital Discharge instructionsAmbulatory Orders* Ophthalmology Location: None Selected [facility] Work Phone: Summary Purpose Family History No Family History Records Found Relationship Condition Age at Onset Recorded Date/T sukumar mother Diabetes mellitus Unknown Hypertension Unknown Coronary artery disease Unknown Disorder of thyroid Unknown High blood cholesterol Unknown father Diabetes mellitus Unknown Malignant neoplasm Unknown grandmother Diabetes mellitus Unknown Advance Directives No Advanced Directives Records Found Advance Directive Response Recorded Date/ Time Living Will No April 22, 2019 1:48pm Power of Community Services Coordinator No April 22 1:48pm Advance Directive Response Recorded Date/ Time Living Will No April 22, 2019 2:48pm Power of Community Services Coordinator No April 22 9 2:48pm Chief Complaint and Reason for Visit Chief Complaint Admit Date LATHA January 03, 2025 2:19 pm 6 M FU April 05, 2025 3:24p m 6 M FU April 25, 2025 1:05 pm Reason for Visit Admit Date Constipation April 05, 2025 3:24p m Depression April 05, 2025 3:24p m HTN (hypertension) April 05, 2025 3:24p m Retinopathy due to secondary diabetes me llitus April 05, 2025 3:24pm Chief Complaint 3 M FU Hand pain 3 M FU Reason for Visit Diabetes HTN (hypertension) Hypothyroidism Obesity Trigger finger of left thumb Trigger finger of right thumb Trigger finger, left index finger Trigger finger, left ring finger Trigger finger, right index finger Trigger finger, right ring finger Pain of hand Diabetes HTN (hypertension) Hypothyroidism Obesity Chief Complaint 3 M FU 3 M FU Reason for Visit Diabetes HTN (hypertension) Hypothyroidism Obesity Diabetes HTN (hypertension) Hypothyroidism Microalbuminuria Obesity Chief Complaint 3 M FU 1 Y FU SCREENING Reason for Visit Diabetes HTN (hypertension) Hypothyroidism Microalbuminuria Obesity Diabetes mellitus, type II Fibromyalgia HTN (hypertension) Hypothyroidism Chief Complaint 3 M FU 3 M FU Reason for Visit Diabetes HTN (hypertension) Hypothyroidism Microalbuminuria Obesity Fatigue Diabetes HTN (hypertension) Hypothyroidism Obesity Chief Complaint Admit Date 6 M FU October 19, 2024 3:06pm 5 M FU October 25, 2024 10:43am HYPERSOMNIA December 23, 2024 12:49pm LATHA January 03, 2025 2:19 pm Reason for Visit Admit Date Sleep apnea in adult October 19, 2024 3:06pm Depression October 19, 2024 3:06pm Diabetes October 19, 2024 3:06pm Diabetes October 25, 2024 10:43am Fatigue October 25, 2024 10:43am HTN (hypertension) October 25, 2024 10:43am Hyperlipidemia October 25, 2024 10:43am Hypothyroidism October 25, 2024 10:43am Microalbuminuria October 25, 2024 10:43am Obesity October 25, 2024 10:43am Chief Complaint Admit Date HYPERSOMNIA December 23, 2024 12:49pm LATHA January 03, 2025 2:19 pm 6 M FU April 05, 2025 3:24p m Reason for Visit Admit Date HTN (hypertension) April 05, 2025 3:24p m Retinopathy due to secondary diabetes me llitus April 05, 2025 3:24pm Additional Source Comments INFORMATION SOURCE (unrecogn ized section and content) DATE CREATED AUTHOR 05/23/2020 [facility] DATE CREATED AUTHOR AUTHOR'S ORGANIZ ATION 09/22/2023 [facility] ([place]) DATE CREATED AUTHOR AUTHOR'S ORGANIZ ATION 11/27/2024 [facility] DATE CREATED AUTHOR AUTHOR'S ORGANIZ ATION 05/13/2025 [facility] Care Teams (unrecognized sec tion and content) Team Status: Active Member Role Status Dates Dr. Rosalinda Becerra DO Family Provider Active Dr. Rosalinda Becerra DO Primary Care Provider Active Team Status: Inactive Member Role Status Dates Dr. Rosalinda Becerra DO Primary Care Provider, Referr ing Provider Active OSCAR Barrientos Attending Provider Active Team Status: Inactive Member Role Status Dates Dr. Rosalinda Becerra DO Primary Care Provider, Referr ing Provider Active Dr. Brendan Finley DO Attending Provider Active Team Status: Inactive Member Role Status Dates Dr. Rosalinda Becerra DO Primary Care Provider Active OSCAR Barrientos Attending Provider, Referring Pr ovider Active Team Status: Inactive Member Role Status Dates Dr. Rosalinda Becerra DO Primary Care Provider Active OSCAR Barrientos Attending Provider Active Team Status: Inactive Member Role Status Dates Dr. Rosalinda Becerra DO Primary Care Pr ovider, Attending Provider, Referring Provider Active Team Status: Active Member Role Status Dates Dr. Rosalinda Becerra DO Primary Care Provider Active Team Status: Inactive Member Role Status Dates Dr. Rosalinda Becerra DO Primary Care Provider Active Start: October 19, 2024 End: October 19, 2024 Dr. Rosalinda Becerra DO Attending Provider Active Start: October 19, 2024 End: October 19, 2024 Dr. Rosalinda Becerra DO Referring Provider Active Start: October 19, 2024 End: October 19, 2024 Team Status: Inactive Member Role Status Dates Dr. Rosalinda Becerra DO Primary Care Provider Active Start: October 25, 2024 End: October 25, 2024 Dr. Rosalinda Becerra DO Referring Provider Active Start: October 25, 2024 End: October 25, 2024 OSCAR Barrientos Attending Provider Active Start: October 25, 2024 End: October 25, 2024 Team Status: Inactive Member Role Status Dates Dr. Rosalinda Becerra DO Primary Care Provider Active Start: October 25, 2024 End: October 25, 2024 OSCAR Barrientos Attending Provider Active Start: October 25, 2024 End: October 25, 2024 OSCAR Barrientos Referring Provider Active Start: October 25, 2024 End: October 25, 2024 Team Status: Inactive Member Role Status Dates Dr. Rosalinda Becerra DO Primary Care Provider Active Start: December 23, 2024 End: December 23, 2024 Dr. Tamika [place] MD Attending Provider Active Start: December 23, 2024 End: December 23, 2024 Dr. Tamika [place] MD Referring Provider Active Start: December 23, 2024 End: December 23, 2024 Team Status: Inactive Member Role Status Dates Dr. Rosalinda Becerra DO Primary Care Provider Active Start: January 03, 2025 End: January 03, 2025 Dr. Tamika [place] MD Attending Provider Active Start: January 03, 2025 End: January 03, 2025 Team Status: Inactive Member Role Status Dates Dr. Rosalinda Becerra DO Primary Care Provider Active Start: April 05, 2025 End: April 05, 2025 Dr. Rosalinda Becerra DO Attending Provider Active Start: April 05, 2025 End: April 05, 2025 Dr. Rosalinda Becerra DO Referring Provider Active Start: April 05, 2025 End: April 05, 2025 Team Status: Inactive Member Role Status Dates Dr. Rosalinda Becerra DO Primary Care Provider Active Start: April 11, 2025 End: April 11, 2025 Dr. Rosalinda Becerra DO Attending Provider Active Start: April 11, 2025 End: April 11, 2025 Dr. Rosalinda Becerra DO Referring Provider Active Start: April 11, 2025 End: April 11, 2025 Team Status: Inactive Member Role Status Dates Dr. Rosalinda Becerra DO Primary Care Provider Active Start: April 25, 2025 End: April 25, 2025 Dr. Rosalinda Becerra DO Referring Provider Active Start: April 25, 2025 End: April 25, 2025 OSCAR Barrientos Attending Provider Active Start: April 25, 2025 End: April 25, 2025 Goals (unrecognized section and content) Goals may be documented in a n alternate sectionGoals may be documented in an alternate sectionGoals may be documented in an alternate section No data available for this sectionGoals may be documented in an alternate sectionGoals may be documented in an alternate sectionGoals may be documented in an alternate sectionGoals may be documented in an alternate sectionGoals may be documented in an alternate section Reason for Visit (unrecogniz ed section and content) Reason Comments New Patient Possible [facility] Specialty Diagnoses / Procedures Referred By Su henderson Referred To Contact Sleep Medicine Diagnoses Sleep apnea, unspecified type Rosalinda Becerra [place] [id number] [place] [address] [facility] [address] [place] [address] Referral ID Status Reason Start Date Expiration Date V isits Requested Visits Authorized [id number] Pending Review 10/21/2024 11/15/2025 1 1 FOR RECORDS PERTAINING TO PATIENTS WHO ARE OR HAVE BEEN ENROLLED IN A CHEMICAL DEPENDENCY/SUBSTANCEABUSE PROGRAM, SOME INFORMATION MAY BE OMITTED. This clinical summary was aggregated from multiple sources. Caution should be exercised in using it in the provision of clinical care. This summary normalizes information from multiple sources, and as a consequence, information in this document may materially change the coding, format and clinical context of patient data. In addition, data may be omitted in some cases. CLINICAL DECISIONS SHOULD BE BASED ON THE PRIMARY CLINICAL RECORDS. [employer] provides no warranty or guarantee of the accuracy or completeness of information in this document.
== END | disposition home or self-care (01) ==
LOC: OPBI 14:19
PROVIDERS: PCP Family Medicine; Referring Provider Family Medicine; Visit Provider Family Medicine
DX: Z12.31 Encounter for screening mammogram for malignant neoplasm of breast (principal)
CPT/HCPCS: 77063; 77067

== ENCOUNTER → 2025-10-05 | Outpatient (CLI) | payer OTHER, SELFPAY ==
[2025-10-05 17:59] LABS: AST(SGOT) 21 U/L (<=31); Alanine Aminotransfer ALT/SGPT 22 U/L (<=34); Albumin, Serum 4.1 g/dL (3.5-5.0); Alkaline Phosphatase 51 U/L (35-104); Anion Gap 15 (5-15); BUN 28 mg/dL (4-19); BUN/Creat Ratio 14.9 RATIO (10-20); Calcium,Total 10.1 mg/dL (7.6-11.0); Carbon Dioxide 23.0 mmol/L (21.0-32.0); Chloride 103 mmol/L (98-108); Cholesterol 135 mg/dL (<=200); Globulin 3.0 g/dL (2.2-4.2); Glucose 121 mg/dL (70-99); Low Density Lipoprotein Calc. 54 mg/dL; Magnesium 1.6 mg/dL (1.5-2.2); Potassium 4.1 mmol/L (3.3-5.1); Triglycerides 347 mg/dL; Very Low Density Lipoprotein 69 mg/dL (5-40); cholesterol:hdl ratio screen 4.80
== END | disposition home or self-care (01) ==
LOC: MTLAB 14:30
PROVIDERS: PCP Family Medicine; Referring Provider Family Medicine; Visit Provider Family Medicine
DX: M79.7 Fibromyalgia (principal); E78.2 Mixed hyperlipidemia
CPT/HCPCS: 36415; 80053; 80061; 83735

== ENCOUNTER → 2025-10-19 | Outpatient (CLI) | payer OTHER, SELFPAY ==
[2025-10-19 18:23] LABS: Creatinine, Urine (random) 212.00 mg/dL (28.00-217.00); Microalbumin,Random Urine 22.4 mg/L (<20 mg/L)
== END | disposition home or self-care (01) ==
LOC: MTLAB 15:25
PROVIDERS: PCP Family Medicine; Referring Provider Family Medicine; Visit Provider Family Medicine
DX: R80.9 Proteinuria, unspecified (principal)
CPT/HCPCS: 82043; 82570